=== PATIENT | male | born 1980 | race Caucasian/White ===

== ENCOUNTER 2017-09-11 21:48 | Emergency (ER) | payer OTHER ==
[~2017-09-11] VITALS: Ht 177.8 cm; Wt 159.5 kg
[~2017-09-11 21:48] MED LIST: IBUP-1050 PO
[2017-09-11 21:53] VITALS: TEMP 36.6; Ht 177.8 cm; Wt 159.5 kg
[2017-09-11] MEDS ORDERED: KETOROLAC TROMETHAMINE 30 MG/ML VIAL IV STA (22:06)
[2017-09-11] MEDS ORDERED: DiphenhydrAMINE HCL 50 MG/ML VIAL IV STA (22:06)
[2017-09-11] MEDS ORDERED: METOCLOPRAMIDE HCL INJ 5 MG/ML 2 ML VIAL IV STA (22:06)
[2017-09-11] MEDS ORDERED: NAPR1TAB9 PO (22:20)
[2017-09-11 22:40] LABS: BASO % 0.4 %; BASO ABS # 0.04 K/uL (0-0.2); EOS % 5.2 %; EOS ABS # 0.55 K/uL (0-0.5); HEMATOCRIT 46.6 % (42-52); IG# 0.06 K/uL (0.00-0.02); LYMPH % 29.2 %; LYMPH ABS # 3.07 K/uL (1.2-3.4); MEAN CELL VOLUME 84.7 fL (80-100); MEAN CORPUSCULAR HEMOGLOBIN 29.1 pg (25-34); MEAN CORPUSCULAR HGB CONC 34.3 g/dl (32-36); MEAN PLATELET VOLUME 9.7 fL (7.4-10.4); MONO % 7.6 %; PLATELET COUNT 269 K/uL (130-400); RED CELL DISTRIBUTION WIDTH CV 13.7 % (11.5-14.5); RED CELL DISTRIBUTION WIDTH SD 42.8 fL (36.4-46.3); WHITE BLOOD COUNT 10.52 K/uL (4.8-10.8)
--- NOTE | 2017-09-11 22:50 | DIAGNOSTIC IMAGING REPORT ---
LUMBAR SPINE WITHOUT CLINICAL HISTORY: 37 years-old Male presenting with severe LBP down right leg. TECHNIQUE: Multidetector CT of the lumbar spine was performed without the use of intravenous contrast. IV contrast: None. A dose lowering technique was used consistent with the principles of ALARA (as low as reasonably achievable). COMPARISON: Plain radiographs from 10/10/2013. CT DOSE (mGy.cm): The estimated cumulative dose is 1019.33 mGy.cm. FINDINGS: Wire Insulator topogram: Unremarkable. Normal lumbar lordosis. Vertebral bodies maintain normal height and alignment. No significant scoliosis. Intervertebral disc heights preserved with the exception of L5-S1, which demonstrates mild intervertebral disc height loss. Anterior osteophytosis noted from L2-3 through L5-S1. Disc bulges noted at L3-4 and L4-5. Osseous neural foraminal narrowing noted at L4-5 and L5-S1 greater on the left. No acute fracture or subluxation. Visualized portion of the sacrum intact. Paraspinal soft tissues within normal limits allowing for noncontrast. IMPRESSION: 1. No acute osseous injury of the lumbar spine. 2. Multilevel degenerative changes with neural foraminal narrowing at L4-5 and L5-S1 greater on the left. Electronically signed by: Abelardo Carey M.D. 09/11/2017 10:48 PM Dictated Date/Time: 09/11/2017 10:46 PM
[2017-09-11 22:57] LABS: CALCIUM 8.8 mg/dl (8.5-10.1); CREATININE 0.9 mg/dl (0.60-1.40); POTASSIUM 4.1 mmol/L (3.5-5.1)
--- NOTE | 2017-09-11 22:58 | DIAGNOSTIC IMAGING REPORT ---
THORACIC SPINE WITHOUT CLINICAL HISTORY: 37 years-old Male presenting with severe back pain. TECHNIQUE: Multidetector CT of the thoracic spine was performed without the use of intravenous contrast. IV contrast: None. A dose lowering technique was used consistent with the principles of ALARA (as low as reasonably achievable). COMPARISON: None. CT DOSE (mGy.cm): The estimated cumulative dose is 1768.33 mGy.cm. FINDINGS: Tower Dragline Operator topogram: Unremarkable. Slight dextrocurvature of the thoracic spine. Otherwise normal thoracic kyphosis. Vertebral bodies maintain normal height and alignment. Intervertebral disc heights preserved. Multilevel degenerative changes evidenced by anterior osteophytosis. Disc osteophyte complex noted at T6-7 with mild effacement of the ventral thecal sac greater on the right. Osseous neural foraminal narrowing evident at several levels most prominently on the right from T4-5 through T6-7. No acute fracture or subluxation. Paraspinal soft tissues within normal limits. Visualized portion of the lung parenchyma within normal limits. IMPRESSION: 1. No acute osseous injury of the thoracic spine. 2. Multilevel degenerative changes with osseous neural foraminal narrowing evident from T4-5 through T6-7, greater on the right. Electronically signed by: Abelardo Carey M.D. 09/11/2017 10:56 PM Dictated Date/Time: 09/11/2017 10:53 PM
[2017-09-11 23:50] VITALS: BP 154/96; PULSE 76; O2SAT 95
--- NOTE | 2017-09-12 05:10 | EMERGENCY ROOM VISIT NOTE ---
History First contact with patient: 21:58 Chief Complaint: BACK PAIN Stated Complaint: BACK GARCIA AND PAIN IN RIGHT LEG History of Present Illness The patient is a 37 year old male who presents to the Emergency Room with complaints of low back pain that radiates down his right leg for the past several months that is steadily getting worse. Patient's been to the chiropractor with no real improvement of symptoms. He describes pain as aching , ranging in severity 7 out of 10 worse with movement and better with rest. Patient denies chest pain, dyspnea, abdominal pain, fever, chills, IV drug abuse , leg weakness, loss of bowel or bladder control, saddle anesthesia. No direct trauma to the back. Patient has not seen his family doctor in over a year. Review of Systems An 10 system review of systems was completed with positives and pertinent negatives listed in the HPI. Past Medical/Surgical History Back pain Family History Diabetes mellitus Social History Smoking Status: Never Smoker Alcohol Use: occasionally Drug Use: none Marital Status: Housing Status: lives with family Occupation Status: employed Current/Historical Medications Scheduled PRN Naproxen (Aleve), 440 MG PO Q4-6HRS PRN for Pain Physical Exam Vital Signs Date Time Temp Pulse Resp B/P (MAP) Pulse Ox O2 Delivery O2 Flow Rate FiO2 09/11/17 23:50 76 18 154/96 95 09/11/17 22:15 97 20 173/116 97 Room Air 09/11/17 21:53 36.6 110 18 199/112 96 Room Air Physical Exam VITALS: Vitals are noted on the nurse's note and reviewed by myself. Vital signs hypertensive. GENERAL: Pleasant male morbidly obese, in no acute distress, nondiaphoretic, well-developed well-nourished. SKIN: Capillary reflex less than 2 seconds. HEENT: Normocephalic. PERRLA. EOMI. Nares patent. Mucous membranes moist. Neck is supple without nuchal rigidity. HEART: Regular rate and rhythm without murmurs gallops or rubs. LUNGS: Clear to auscultation bilaterally without wheezes, rales or rhonchi. No retractions or accessory muscle use. ABDOMEN: Positive bowel sounds x 4. Normal tympanic percussion. Soft, protuberant, obese, nontender, without masses or organomegaly. Ariza sign negative. No guarding or rebound tenderness. MUSCULOSKELETAL: No gross musculoskeletal defects. Minimal tenderness over the lower thoracic spine and lumbar spine without step-offs. Negative straight leg raise on the left and positive on the right. Patient can walk on toes and heels. NEURO: Patient was alert and oriented to person place and time. Normal sensation to light and sharp touch. Deep tendon reflexes 2+ patella bilaterally . No focal neurological deficits. Medical Decision & Procedures Laboratory Results 09/11/17 22:20 Red Blood Count 5.50, Mean Corpuscular Volume 84.7, Mean Corpuscular Hemoglobin 29.1, Mean Corpuscular Hemoglobin Concent 34.3, Mean Platelet Volume 9.7, Neutrophils (%) (Auto) 57.0, Lymphocytes (%) (Auto) 29.2, Monocytes (%) (Auto) 7.6, Eosinophils (%) (Auto) 5.2, Basophils (%) (Auto) 0.4, Neutrophils # (Auto) 6.00, Lymphocytes # (Auto) 3.07, Monocytes # (Auto) 0.80, Eosinophils # (Auto) 0.55, Basophils # (Auto) 0.04 09/11/17 22:20 Test 09/11/17 22:20 White Blood Count 10.52 K/uL (4.8-10.8) Red Blood Count 5.50 M/uL (4.7-6.1) Hemoglobin 16.0 g/dL (14.0-18.0) Hematocrit 46.6 % (42-52) Mean Corpuscular Volume 84.7 fL (80-100) Mean Corpuscular Hemoglobin 29.1 pg (25-34) Mean Corpuscular Hemoglobin Concent 34.3 g/dl (32-36) Platelet Count 269 K/uL (130-400) Mean Platelet Volume 9.7 fL (7.4-10.4) Neutrophils (%) (Auto) 57.0 % Lymphocytes (%) (Auto) 29.2 % Monocytes (%) (Auto) 7.6 % Eosinophils (%) (Auto) 5.2 % Basophils (%) (Auto) 0.4 % Neutrophils # (Auto) 6.00 K/uL (1.4-6.5) Lymphocytes # (Auto) 3.07 K/uL (1.2-3.4) Monocytes # (Auto) 0.80 K/uL (0.11-0.59) Eosinophils # (Auto) 0.55 K/uL (0-0.5) Basophils # (Auto) 0.04 K/uL (0-0.2) RDW Standard Deviation 42.8 fL (36.4-46.3) RDW Coefficient of Variation 13.7 % (11.5-14.5) Immature Granulocyte % (Auto) 0.6 % Immature Granulocyte # (Auto) 0.06 K/uL (0.00-0.02) Anion Gap 4.0 mmol/L (3-11) Est Creatinine Clear Calc Drug Dose 171.0 ml/min Estimated GFR () 126.0 Estimated GFR (Non- 108.7 BUN/Creatinine Ratio 9.7 (10-20) Calcium Level 8.8 mg/dl (8.5-10.1) Medications Administered Medications (Trade) Dose Ordered Sig/Faraz Route Start Time Stop Time Status Last Admin Dose Admin Ketorolac Tromethamine (Toradol Inj) 15 mg NOW STAT IV 09/11/17 22:06 09/11/17 22:11 DC 09/11/17 22:27 15 MG Metoclopramide HCl (Reglan Inj) 10 mg NOW STAT IV 09/11/17 22:06 09/11/17 22:11 DC 09/11/17 22:22 10 MG Diphenhydramine HCl (Benadryl Inj) 12.5 mg NOW STAT IV 09/11/17 22:06 09/11/17 22:11 DC 09/11/17 22:23 12.5 MG ED Course Prior records/ancillary studies reviewed. Triage Nursing notes reviewed. Additional history obtained from family. The patient's history was concerning for back pain. Differential diagnosis: Etiologies such as musculoskeletal, disc herniation, fracture, aortic disease, metastatic disease, cord compression, discitis, infection, renal colic, gastrointestinal, acute exacerbation of chronic back pain, sciatica, cauda equina, as well as others were entertained. Physical findings: As above. No focal neurologic findings noted. ER treatment provided: Toradol, Benadryl, Reglan On reassessment the patient felt better. Diagnostics interpreted by me: The labs revealed hyperglycemia without DKA Imaging studies: [~ rep ct add3]] THORACIC SPINE WITHOUT CLINICAL HISTORY: 37 years-old Male presenting with severe back pain. TECHNIQUE: Multidetector CT of the thoracic spine was performed without the use of intravenous contrast. IV contrast: None. A dose lowering technique was used consistent with the principles of ALARA (as low as reasonably achievable). COMPARISON: None. CT DOSE (mGy.cm): The estimated cumulative dose is 1768.33 mGy.cm. FINDINGS: Research Physician topogram: Unremarkable. Slight dextrocurvature of the thoracic spine. Otherwise normal thoracic kyphosis. Vertebral bodies maintain normal height and alignment. Intervertebral disc heights preserved. Multilevel degenerative changes evidenced by anterior osteophytosis. Disc osteophyte complex noted at T6-7 with mild effacement of the ventral thecal sac greater on the right. Osseous neural foraminal narrowing evident at several levels most prominently on the right from T4-5 through T6-7. No acute fracture or subluxation. Paraspinal soft tissues within normal limits. Visualized portion of the lung parenchyma within normal limits. IMPRESSION: 1. No acute osseous injury of the thoracic spine. 2. Multilevel degenerative changes with osseous neural foraminal narrowing evident from T4-5 through T6-7, greater on the right. LUMBAR SPINE WITHOUT CLINICAL HISTORY: 37 years-old Male presenting with severe LBP down right leg. TECHNIQUE: Multidetector CT of the lumbar spine was performed without the use of intravenous contrast. IV contrast: None. A dose lowering technique was used consistent with the principles of ALARA (as low as reasonably achievable). COMPARISON: Plain radiographs from 10/10/2013. CT DOSE (mGy.cm): The estimated cumulative dose is 1019.33 mGy.cm. FINDINGS: Research Physician topogram: Unremarkable. Normal lumbar lordosis. Vertebral bodies maintain normal height and alignment. No significant scoliosis. Intervertebral disc heights preserved with the exception of L5-S1, which demonstrates mild intervertebral disc height loss. Anterior osteophytosis noted from L2-3 through L5-S1. Disc bulges noted at L3-4 and L4-5. Osseous neural foraminal narrowing noted at L4-5 and L5-S1 greater on the left. No acute fracture or subluxation. Visualized portion of the sacrum intact. Paraspinal soft tissues within normal limits allowing for noncontrast. IMPRESSION: 1. No acute osseous injury of the lumbar spine. 2. Multilevel degenerative changes with neural foraminal narrowing at L4-5 and L5-S1 greater on the left. Electronically signed by: Abelardo Carey M.D. This appears to be consistent with lumbar radiculopathy. Patient was neurovascularly neurologically intact. He was counseled on back pain and on blood pressure and blood sugar with follow-up with family care for further evaluation for possible evaluation for diabetes untreated blood pressure. Patient was advised to take medications as directed and to stretch the area out and to maintain a healthy weight. He was advised to follow-up family care in a few days here in the ER sooner for severe pain, weakness, numbness, tingling, worsening signs or symptoms or as needed. Patient ambulated out of the ER with his family without difficulties.. The patient's physical examination and detailed history did not reveal any red flags for back pain such as those listed in the differential diagnosis. Therefore advanced diagnostics and consultations were felt to be unwarranted. By the evaluation outlined above emergent etiologies such as fracture, aortic disease, metastatic disease, infection, renal colic, gastrointestinal, cord compression, cauda equina, as well as others were deemed relatively unlikely. The pt informed about the findings as listed above. All questions were answered and pleased with the treatment. Return instructions were outlined and the patient was discharged in stable condition. Referral: The patient was referred back to primary care physician for follow-up in 2 to 3 days for a recheck of the current condition. Case reviewed with my attending The chart was completed utilizing EPS Speech voice recognition software. Grammatical errors, random word insertions, pronoun errors, and incomplete sentences are an occassional consequence of this system due to software limitations, ambient noise, and hardware issues. Any formal questions or concerns about the content, text, or information contained within the body of this dictation should be directly addressed to the physician assistant office manager for clarification. Medical Decision As above Medication Reconcilliation Current Medication List: was personally reviewed by me Blood Pressure Screening Patient's blood pressure: Elevated blood pressure Blood pressure disposition: Referred to PCP Impression Primary Impression: Hyperglycemia Additional Impressions: Lumbar radiculopathy High blood pressure Departure Information Dispostion Home / Self-Care Condition GOOD Referrals Amadeo Jose, DO Forms HOME CARE DOCUMENTATION FORM, Work Instructions, Return To Work: 2 days IMPORTANT VISIT INFORMATION Patient Instructions Hyperglycemia, High Blood Pressure, Lumbar Radiculopathy, [facility] Additional Instructions DO NOT drive, drink alcohol, operate machinery, or perform dangerous activities today. You were given medications in the ER that can affect your ability to safely function or operate a vehicle. Your blood pressure and blood sugar were high today. You need to follow-up with family care doctor for further evaluation for possible untreated blood pressure and diabetes. Recommend yoga and/or Pilates for back pain to help strengthen uo your core. Recommend physical therapy to help strengthen up your core. Recommend a healthy weight. Ibuprofen(Motrin, Advil) may be used for fever or pain. Use 600mg every six hours as needed. Take with food. Avoid using more than 2400mg in a 24 hour period. Do not use 2400mg per day for more than three consecutive days without physician direction. Prolonged inappropriate use can lead to stomach upset or ulcers. This medication can be taken if you need to drive, work, or perform activities which may be dangerous when taking narcotic pain medication. (AND/OR) Acetaminophen(Tylenol) may be used for fever or pain. Use 1000mg every six hours as needed. Avoid using more than 3000mg in a 24 hour period. This medication can be taken if you need to drive, work, or perform activities which may be dangerous when taking narcotic pain medication. Rest and avoid heavy lifting until your symptoms resolve and then gradually return to full activity. A good rule of thumb is if it hurts your back to perform a certain activity, then it should be avoided until you are healthy again. A heating pad, warm compresses, or a hot shower may help with tight muscles and can be done several times a day as needed. Continue current medications. Return to the ER immediately for any numbness, tingling, severe pain, loss of control of your bowels or bladder, inability to walk, or as needed. Follow up with your primary care physician/orthopedics spine within 3-5 days for a recheck of your current condition. Work Instructions Return To Work: 2 days Problem Qualifiers
== END 2017-09-11 23:51 | disposition home or self-care (01) ==
LOC: C.EDB 21:49
DX: R73.9 Hyperglycemia, unspecified (principal); M54.16 Radiculopathy, lumbar region; I10 Essential (primary) hypertension

== ENCOUNTER 2023-07-13 18:46 | Inpatient (IN) ==
[2023-07-13 19:48] LABS: Basophils # (auto) 0.06 K/uL (0.00-0.20); Basophils % (auto) 0.4 %; Eosinophils # (auto) 0.15 K/uL (0.00-0.50); Hematocrit (blood only) 46.8 % (42.0-52.0); Hemoglobin 15.6 g/dl (14.0-18.0); Immature Granulocytes # (auto) 0.08 K/uL (0.01-0.20); Immature Granulocytes % (auto) 0.5 %; Lymphocytes # (auto) 2.33 K/uL (1.20-3.40); Lymphocytes % (auto) 15.6 %; Mean Corpuscular Hgb Conc 33.3 g/dL (32.0-36.0); Mean Platelet Volume 9.8 fL (9.4-12.4); Monocytes # (auto) 1.02 K/uL (0.11-0.59); Monocytes % (auto) 6.8 %; Neutrophils # (auto) 11.31 K/uL (1.40-6.50); Neutrophils % (auto) 75.7 %; Platelet Count 262 K/uL (130-400); RDW Coefficient of Variation 14.1 % (11.5-14.5); RDW Standard Deviation 43.3 fL (36.4-46.3); Red Blood Count 5.57 M/uL (4.70-6.10); White Blood Count 14.95 K/ul (4.8-10.8)
[2023-07-13 20:03] LABS: Albumin Globulin Ratio 0.9 (0.9-2); Albumin Level 3.8 gm/dl (3.4-5.0); Bilirubin,Total 0.8 mg/dl (0.2-1.0); Creatinine Clr Calc Pharmacy 192.5 ml/min; Est GFR (African American) 130.2 ml/min; Est GFR (Non-African American) 112.4 ml/min; Globulin 4.2 gm/dl (2.5-4.0); Potassium 4.1 mmol/L (3.5-5.1)
[2023-07-13 20:17] LABS: Appearance Urine Cloudy (Clear); Bacteria Urine Automated 4+ (Negative); Bilirubin Urine Negative (Negative); Blood Urine Trace (Negative); Color Urine Dark Yellow; Epithelial Cell Urine Auto >30 /lpf (0-5); Glucose Urine UA 3+ (Negative); Ketones Urine Trace (Negative); Leukocyte Esterase Urine Negative (Negative); Nitrite Urine Negative (Negative); Protein Urine 2+ (Negative); RBC Urine Automated 0-4 /hpf (0-4); Specific Gravity Urine > 1.045 (1.000-1.030); Urobilinogen Urine Negative (Negative); WBC Urine Automated >30 /hpf (0-5)
[2023-07-13] MEDS: diphenhydrAMINE 50 MG/ML VIAL IV ONE (20:31)
[2023-07-13] MEDS: OPTIRAY 320 125ml IV ONE (20:51)
--- NOTE | 2023-07-13 21:19 | Emergency Department Note ---
Impression & Plan Abdominal pain, Acute cholecystitis, Hematuria ED Provider Note ED Provider Note NAME: NOA FONSECA AGE:43 SEX: Male : 1980 ARRIVES VIA: Private vehicle INFORMANT: Patient ED PROVIDER(s): Haley Velez DO CHIEF COMPLAINT: Abdominal pain HPI: This is a 43-year-old male presents emergency department due to concern for abdominal pain. Patient states 4 days ago he had pain in the right upper quadrant that seemed to come into his chest however he took some antacids at home and symptoms seem to resolve. He states he felt well over the next 2 days. He states this morning at around 4 AM he awoke with right lower abdominal pain. He states pain has been constant throughout the day. He did have 1 episode of nausea and vomiting. He did have subjective fevers and chills, but did not take his temperature. Patient is a diabetic but family bedside states he does not routinely check his blood sugar. He denies any recent change in medications or known sick contact. No recent change in activity or trauma. He states he drinks a lot of water, and his urine is usually microsoft architect however today it looked darker. He denies any dysuria, frequency or urgency. He denies any change in stools. PAST MEDICAL HISTORY:See Below PAST SURGICAL HISTORY:See Below FAMILY HISTORY:See Below SOCIAL HISTORY:See Below HOME MEDICATIONS:See Below ALLERGIES:See Below VITALS:See Below PHYSICAL EXAMINATION: GENERAL: alert, well appearing, well nourished, no distress, non-toxic, BMI 47 EYE EXAM: normal conjunctiva, PERRL and EOM's grossly intact OROPHARYNX: no exudate, no erythema, lips, buccal mucosa, and tongue normal and mucous membranes are moist NECK: supple, no nuchal rigidity, no adenopathy, non-tender LUNGS: Clear to auscultation. Normal chest wall mechanics, no w/r/r HEART: no murmurs, S1 normal and S2 normal ABDOMEN: abdomen soft, right lower quadrant tenderness with palpation normo- active bowel sounds, no masses, no rebound or guarding. BACK: Back is symmetrical on inspection and there is no deformity, no midline tenderness, no CVA tenderness. SKIN: no rashes, petechiae, orbruising UPPER EXTREMITIES: upper extremities are grossly normal. FROM, nml pulses b/l. LOWER EXTREMITIES: No pitting edema. FROM, nml pulses b/l. NEURO EXAM: Normal sensorium, cranial nerves II-XII grossly intact, normal speech, no facial droop,nogross weakness of arms, no gross weakness of legs. Gross sensation intact. No ataxia. Vital Signs: reviewed and remarkable Differential Diagnosis: Colitis, bowel obstruction, appendicitis, perforation, cholecystitis, DKA, UTI, pyelonephritis, ureterolithiasis, IBD, as well as others were considered MEDICAL DECISION MAKING: This is a 43-year-old male presents emerged part due to right-sided abdominal pain. He was afebrile vital signs stable on presentation. Labs drawn and sent, IV established, EKG performed at bedside interpreted by me and patient monitored on telemetry. Patient given IV fluids, IV Tylenol, and was sent for CT of the abdomen and pelvis. CT revealed acute cholecystitis. Patient was noted to have leukocytosis although no abnormal LFTs or elevated lipase. Patient given additional IV morphine for pain and case discussed with general surgery Daniel MARTINEZ who came and evaluated the patient at bedside. Patient admitted to Dr. Echols [facility] for management of his other medical conditions with general surgery on consult. Additional orders placed by them. Patient had no urinary complaints and urine specimen was suboptimal with greater than 30 epi use although he was noted to have glucose, protein, as well as hematuria and 4+ bacteria. Culture pending at this time. Patient did receive IV antibiotics after surgical evaluation additionally. Consultation(s): 2220: Discussed with Daniel Amor PA-C, with general surgery. They would like medicine to admit given patient's history of diabetes and hypertension. 2228: Discussed with Dr. Echols, [facility], for additional evaluation and mgmt. ER Treatment Provided: See below Diagnostics Interpreted By Me: -ECG: Sinus tachycardia at 107, normal axis, normal intervals, no acute ST/T wave changes -Cardiac Monitoring: An order was placed for continuous cardiac monitoring. The monitor shows a rate of 92 with normal sinus rhythm. -Laboratory studies: As stated above and show below. -Imaging studies: X-ray Chest: A single view study of the chest was reviewed and was negative for cardiomegaly, focal infiltrate, effusion, pulmonary edema, or wide mediastinum. Triage Nursing Note Reviewed Prior/Outside Records Reviewed Past Med/Surg History Medical History Lumbar radiculopathy Hyperglycemia High blood pressure Social History Smoking Status: Never smoker Preferred Language: Greek Feels Safe at Home: Yes Allergies Allergies Allergy/AdvReac Type Severity Reaction Status Date / Time Penicillins Allergy Severe THROAT/FACE Verified 07/13/23 21:46 SWELLS iodine Allergy Unknown CAN'T Unverified 07/13/23 21:46 REMEMBER Home Meds Home Medications Medication Instructions Recorded Confirmed feouuzpb-bgvccime-pgene acid 400 1 tab PO DAILY 07/22/21 07/13/23 mcg-vit K 20 mcg-lycop 300 mcg tablet (Men's One Daily) dulaglutide 0.75 mg/0.5 mL 0.75 mg subcut WK 07/13/23 07/13/23 subcutaneous pen injector (Trulicity) empagliflozin 25 mg tablet 25 mg PO QAM 07/13/23 07/13/23 (Jardiance) fenofibrate nanocrystallized 145 145 mg PO QAM 07/13/23 07/13/23 mg tablet losartan 100 1 tab PO DAILY 07/13/23 07/13/23 mg-hydrochlorothiazide 25 mg tablet Results & Data (ED) Vital Signs Vital Signs - 24 hr 07/13/23 18:47 07/13/23 19:52 07/13/23 19:52 Temperature 36.6 C Temperature Source Temporal Artery Scan Pulse Rate 113 H 104 H Pulse Rate [Finger] 104 H Pulse Rate from SpO2 Sensor Pulse Rhythm Regular Pulse Rhythm [Finger] Regular Pulse Strength [Finger] Normal Respiratory Rate 18 16 20 Respiratory Effort / Characteristics Non-Labored Spontaneous Non-Labored Respiratory Depth Normal Normal Respiratory Pattern Regular Blood Pressure 168/109 H Blood Pressure [Right Arm] 165/96 H Blood Pressure Mean 128 Blood Pressure Mean [Right Arm] 119 Blood Pressure Position Sitting Pulse Oximetry 97 95 94 Oxygen Delivery Method Room Air Room Air Room Air Sepsis Recent Fever Within 48 Hours No Sepsis New/Unexplained Change in Mental Status N/A Sepsis Action Taken by Nursing No Action Required 07/13/23 19:55 07/13/23 20:00 07/13/23 21:00 Temperature Temperature Source Pulse Rate 101 H 102 H 105 H Pulse Rate [Finger] Pulse Rate from SpO2 Sensor 103 H 105 H Pulse Rhythm Pulse Rhythm [Finger] Pulse Strength [Finger] Respiratory Rate 27 H 23 Respiratory Effort / Characteristics Respiratory Depth Respiratory Pattern Blood Pressure 150/94 H 186/114 H Blood Pressure [Right Arm] Blood Pressure Mean 112 138 Blood Pressure Mean [Right Arm] Blood Pressure Position Pulse Oximetry 96 97 Oxygen Delivery Method Sepsis Recent Fever Within 48 Hours Sepsis New/Unexplained Change in Mental Status Sepsis Action Taken by Nursing 07/13/23 22:00 07/13/23 23:13 07/13/23 23:22 Temperature Temperature Source Pulse Rate 98 H Pulse Rate [Finger] Pulse Rate from SpO2 Sensor 99 H 97 H Pulse Rhythm Pulse Rhythm [Finger] Pulse Strength [Finger] Respiratory Rate 42 H 20 31 H Respiratory Effort / Characteristics Respiratory Depth Respiratory Pattern Blood Pressure 163/86 H 165/94 H Blood Pressure [Right Arm] Blood Pressure Mean 111 117 Blood Pressure Mean [Right Arm] Blood Pressure Position Pulse Oximetry 95 92 Oxygen Delivery Method Sepsis Recent Fever Within 48 Hours Sepsis New/Unexplained Change in Mental Status Sepsis Action Taken by Nursing 07/13/23 23:54 07/13/23 23:54 Temperature Temperature Source Pulse Rate 97 H 97 H Pulse Rate [Finger] Pulse Rate from SpO2 Sensor Pulse Rhythm Pulse Rhythm [Finger] Pulse Strength [Finger] Respiratory Rate Respiratory Effort / Characteristics Respiratory Depth Respiratory Pattern Blood Pressure 165/94 H Blood Pressure [Right Arm] Blood Pressure Mean Blood Pressure Mean [Right Arm] Blood Pressure Position Pulse Oximetry Oxygen Delivery Method Sepsis Recent Fever Within 48 Hours Sepsis New/Unexplained Change in Mental Status Sepsis Action Taken by Nursing Laboratory Data 07/13/23 19:15 07/13/23 19:15 Lab Results 07/13/23 07/13/23 Range/Units 19:15 19:58 WBC 14.95 H (4.8-10.8) K/ul RBC 5.57 (4.70-6.10) M/uL Hgb 15.6 (14.0-18.0) g/dl Hct 46.8 (42.0-52.0) % MCV 84.0 (80.0-100.0) fL MCH 28.0 (25.0-34.0) pg MCHC 33.3 (32.0-36.0) g/dL RDW Std Deviation 43.3 (36.4-46.3) fL RDW Coeff of [place] 14.1 (11.5-14.5) % Plt Count 262 (130-400) K/uL MPV 9.8 (9.4-12.4) fL Immature Gran % (Auto) 0.5 % Neut % (Auto) 75.7 % Lymph % (Auto) 15.6 % [place] % (Auto) 6.8 % Eos % (Auto) 1.0 % Baso % (Auto) 0.4 % Neut # (Auto) 11.31 H (1.40-6.50) K/uL Lymph # (Auto) 2.33 (1.20-3.40) K/uL [place] # (Auto) 1.02 H (0.11-0.59) K/uL Eos # (Auto) 0.15 (0.00-0.50) K/uL Baso # (Auto) 0.06 (0.00-0.20) K/uL Immature Gran # (Auto) 0.08 (0.01-0.20) K/uL Sodium 134 L (136-145) mmol/L Potassium 4.1 (3.5-5.1) mmol/L Chloride 104 (98-107) mmol/L Carbon Dioxide 22 (21-32) mmol/L Anion Gap 8 (3-11) BUN 9 (6-23) mg/dl Creatinine 0.75 (0.6-1.4) mg/dl Est Cr Clr Drug Dosing 192.5 ml/min Est GFR ( Amer) 130.2 ml/min Est GFR (Non-Af Amer) 112.4 ml/min BUN/Creatinine Ratio 12.0 (10-20) Glucose 188 H (70-99(Fasting)) mg/dl Calcium 9.0 (8.6-10.3) mg/dl Total Bilirubin 0.8 (0.2-1.0) mg/dl AST 13 (13-39) U/L ALT 18 (7-52) U/L Alkaline Phosphatase 61 (34-104) U/L Total Protein 8.0 (6.0-8.3) gm/dl Albumin 3.8 (3.4-5.0) gm/dl Globulin 4.2 H (2.5-4.0) gm/dl Albumin/Globulin Ratio 0.9 (0.9-2) Lipase 34 (11-82) U/L Urine Color Dark Yellow Urine Appearance Cloudy A (Clear) Urine pH 6.0 (4.5-7.5) Ur Specific [place] > 1.045 H (1.000-1.030) Urine Protein 2+ H (Negative) Urine Glucose (UA) 3+ H (Negative) Urine Ketones Trace H (Negative) Urine Blood Trace H (Negative) Urine Nitrite Negative (Negative) Urine Bilirubin Negative (Negative) Urine Urobilinogen Negative (Negative) Ur Leukocyte Esterase Negative (Negative) Urine WBC (Auto) >30 H (0-5) /hpf Urine RBC (Auto) 0-4 (0-4) /hpf U Hyaline Cast (Auto) 1-5 (0-5) /lpf U Epithel Cells (Auto) >30 H (0-5) /lpf Urine Bacteria (Auto) 4+ H (Negative) Administered Medications Sodium Chloride (Nss) 1,000 mls @ 100 mls/hr IV .Q10H LOIS Stop: 08/12/23 22:29 Last Admin: 07/13/23 23:54 Dose: 100 mls/hr Documented By: HB Ciprofloxacin (Cipro / D5w) 400 mg in 200 mls @ 100 mls/hr IV NOW STA; Protocol Stop: 07/14/23 00:49 Last Admin: 07/13/23 23:16 Dose: 100 mls/hr Documented By: HB Discontinued Medications Diphenhydramine HCl (Diphenhydramine 50 Mg/Ml Vial) 50 mg IV ONE ONE Stop: 07/13/23 20:21 Last Admin: 07/13/23 20:31 Dose: 50 mg Documented By: HB Sodium Chloride (Nss) 1,000 mls @ 250 mls/hr IV .Q4H LOIS Stop: 08/12/23 21:14 Last Infusion: 07/13/23 23:49 Dose: Infused Documented By: Admin: 07/13/23 21:34 Dose: 250 mls/hr Documented By: HB Acetaminophen (Ofirmev) 1,000 mg in 100 mls @ 400 mls/hr IV NOW STA Stop: 07/13/23 21:28 Last Infusion: 07/13/23 21:50 Dose: Infused Documented By: Admin: 07/13/23 21:35 Dose: 400 mls/hr Documented By: HB Ioversol (Optiray 320 125ml) 116 ml IV ONCE ONE Stop: 07/13/23 20:51 Last Admin: 07/13/23 20:51 Dose: 116 ml Documented By: DIDI Labetalol HCl (Labetalol Hcl Iv 5 Mg/Ml 20ml) 5 mg IV NOW STA Stop: 07/13/23 23:44 Last Admin: 07/13/23 23:54 Dose: 5 mg Documented By: GERRY Co-signed By: Methylprednisolone (Methylprednisolone 40 Mg/Ml Vial) 40 mg IV NOW ONE Stop: 07/13/23 20:21 Last Admin: 07/13/23 20:32 Dose: 40 mg Documented By: HB Morphine Sulfate (Morphine Sulfate 4 Mg/Ml 1 Ml Carp\Vial) 4 mg IV NOW STA Stop: 07/13/23 22:24 Last Admin: 07/13/23 22:38 Dose: 4 mg Documented By: AMOL Imaging Data Radiologist's Impression: Abdomen/Pelvis CT 07/13/23 20:20 Exam(s): CT ABDOMEN + PELVIS With Contrast IV Amt: 116 cc opti 320 EXAM: CT Abdomen and Pelvis With Intravenous Contrast CLINICAL HISTORY: Reason for exam: RLQ abd pain. TECHNIQUE: Axial computed tomography images of the abdomen and pelvis with intravenous contrast. CTDI is 28.14 mGy and DLP is 1608.16 mGy-cm. Automated exposure control was utilized for the study. A dose lowering technique was utilized adhering to the principles of ALARA. CONTRAST: Patient received 116 cc opti 320 of IV contrast COMPARISON: No relevant prior studies available. FINDINGS: Lung bases: Unremarkable. No mass. No consolidation. ABDOMEN: Liver: Hepatic steatosis. Gallbladder and bile ducts: Moderate pericholecystic edema, concerning for acute cholecystitis. Surgical evaluation recommended. No radiopaque gallstones. No ductal dilation. Pancreas: Unremarkable. No mass. No ductal dilation. Spleen: Unremarkable. No splenomegaly. Adrenals: Unremarkable. No mass. Kidneys and ureters: Unremarkable. No solid mass. No hydronephrosis. Stomach and bowel: Unremarkable. No obstruction. No mucosal thickening. PELVIS: Appendix: No findings to suggest acute appendicitis. Bladder: Unremarkable. No mass. Reproductive: Unremarkable as visualized. ABDOMEN and PELVIS: Intraperitoneal space: Unremarkable. No free air. No significant fluid collection. Bones/joints: No acute fracture. No dislocation. Soft tissues: Unremarkable. Vasculature: Unremarkable. No abdominal aortic aneurysm. Lymph nodes: Unremarkable. No enlarged lymph nodes. IMPRESSION: Moderate pericholecystic edema, concerning for acute cholecystitis. Surgical evaluation recommended. No radiopaque gallstones. Electronically signed by: Alphonse Telles MD 07/13/23 21:57 PM Gallbladder Ultrasound 07/13/23 22:27 Exam(s): US GALLBLADDER EXAM: US Abdomen Limited, Gallbladder CLINICAL HISTORY: Reason for exam: cholecystitis. TECHNIQUE: Real-time ultrasound of the right upper quadrant with image documentation. COMPARISON: No relevant prior studies available. FINDINGS: Liver: Hepatic steatosis. Gallbladder: Cholelithiasis. Mild relative wall thickening measuring 4 mm. Findings are consistent with acute cholecystitis. Common bile duct: Common bile duct measures 6 mm, within normal limits. No stones. No dilation. Pancreas: Unremarkable as visualized. IMPRESSION: Cholelithiasis. Mild relative wall thickening measuring 4 mm. Findings are consistent with acute cholecystitis. Electronically signed by: Alphonse Telles MD 07/14/23 00:35 AM Discharge Plan Visit Data Chief Complaint: Abdominal Pain Stated Complaint: RT FLANK PAIN ED Provider: Haley Velez Discharge Problem: Abdominal pain, Acute cholecystitis, Hematuria Forms Stand Alone Forms: [facility] Prescriptions Prescriptions: No Action Men's One Daily 400-20-300 mcg Tablet 1 tab PO DAILY losartan-hydrochlorothiazide 100-25 mg tablet 1 tab PO DAILY fenofibrate nanocrystallized 145 mg tablet 145 mg PO QAM Jardiance 25 mg tablet 25 mg PO QAM Trulicity 0.75 mg/0.5 mL pen injector 0.75 mg SUBCUT WK Referrals Referrals: Michi Moreno MD [Primary Care Provider] -
[2023-07-13] MEDS: SODIUM CHLORIDE 0.9% 1,000 ML IV SCH ×2 (21:34→23:54)
[2023-07-13] MEDS: ACETAMINOPHEN 1,000 MG/100 ML VIAL IV STA (21:35)
--- NOTE | 2023-07-13 21:58 | CT Scan Report ---
Exam(s): CT ABDOMEN + PELVIS With Contrast IV Amt: 116 cc opti 320 EXAM: CT Abdomen and Pelvis With Intravenous Contrast CLINICAL HISTORY: Reason for exam: RLQ abd pain. TECHNIQUE: Axial computed tomography images of the abdomen and pelvis with intravenous contrast. CTDI is 28.14 mGy and DLP is 1608.16 mGy-cm. Automated exposure control was utilized for the study. A dose lowering technique was utilized adhering to the principles of ALARA. CONTRAST: Patient received 116 cc opti 320 of IV contrast COMPARISON: No relevant prior studies available. FINDINGS: Lung bases: Unremarkable. No mass. No consolidation. ABDOMEN: Liver: Hepatic steatosis. Gallbladder and bile ducts: Moderate pericholecystic edema, concerning for acute cholecystitis. Surgical evaluation recommended. No radiopaque gallstones. No ductal dilation. Pancreas: Unremarkable. No mass. No ductal dilation. Spleen: Unremarkable. No splenomegaly. Adrenals: Unremarkable. No mass. Kidneys and ureters: Unremarkable. No solid mass. No hydronephrosis. Stomach and bowel: Unremarkable. No obstruction. No mucosal thickening. PELVIS: Appendix: No findings to suggest acute appendicitis. Bladder: Unremarkable. No mass. Reproductive: Unremarkable as visualized. ABDOMEN and PELVIS: Intraperitoneal space: Unremarkable. No free air. No significant fluid collection. Bones/joints: No acute fracture. No dislocation. Soft tissues: Unremarkable. Vasculature: Unremarkable. No abdominal aortic aneurysm. Lymph nodes: Unremarkable. No enlarged lymph nodes. IMPRESSION: Moderate pericholecystic edema, concerning for acute cholecystitis. Surgical evaluation recommended. No radiopaque gallstones. Electronically signed by: Alphonse Telles MD 07/13/23 21:57 PM
[2023-07-13] MEDS: MoRPHine SULFATE 4 MG/ML 1 ML CARP\\VIAL IV STA (22:38)
--- NOTE | 2023-07-13 22:50 | Surgery Consultation ---
Date of Consultation July 13, 2023 Assessment & Plan (1) Acute cholecystitis: I discussed with the treating emergency room physician and the patient is being admitted on the hospital service. The patient has numerous medical problems as outlined in the HPI. He is also noted to have elevated blood pressure so we would like the hospitalist to have these conditions optimized prior to entertaining any surgical intervention From a surgical perspective we recommend the following: Implement n.p.o. status Provide IV fluid for hydration Follow serial labs Provide analgesics Provide antiemetics Antibiotics to be initiated. As the patient describes anaphylaxis to penicillin and we will avoid penicillin and penicillin type derivatives along with cephalosporins. I did asked the patient if he has ever taken Cipro and Flagyl and he has not ever had these antibiotics. Will utilize Cipro and Flagyl for antibiotic coverage, monitoring closely for any type of allergic reaction. Patient has an abnormal urinalysis and a urine culture has been sent. The above noted antibiotics should cover the most likely pathogens if the patient does have bacterial growth on his urine culture. The patient does have cholecystitis by CT scan. Will obtain a gallbladder ultrasound for further delineation of the biliary system I discussed the case with my attending physician Dr. Ramon Amor and we have tentatively placed the patient on the OR schedule for 07/14/2023 for a cholecystectomy Would recommend using only SCDs for DVT prevention, no chemical means due to planned surgery Additional recommendations with forthcoming based on pending studies, the patient's clinical course as unfolds, and his postoperative recovery thereafter Supervising Physician Co-Signing Physician Notes I personally saw and evaluated the patient with Daniel Alanis PA-C and agree with the assessment and plan. 43-year-old morbidly obese male with acute cholecystitis He has been admitted to the medical team Keep n.p.o. with IV fluids and IV antibiotics His ultrasound and CT images and results were personally viewed and interpreted by myself, consistent with acute cholecystitis Will plan on laparoscopic cholecystectomy, possible open, possible intraoperative cholangiogram History of Present Illness Reason for Consultation: Acute cholecystitis History of Present Illness This is a 43-year-old male who presented to the emergency department secondary to abdominal pain. Patient says that the pain woke him up from his sleep at approximately 4:00 AM on 07/13/2023. He said that the pain was located primarily in his right upper quadrant and under his right inferior rib cage. He did have associated nausea and vomiting. He did not take his temperature but he did break out in a sweat. Patient says that he took [place] and attempts to relieve his symptoms with no avail. As his symptoms persisted he presented to the emergency department. He does note that the only factor that improved his pain were medicines administered in the emergency department. The patient notes that he has never had any prior abdominal surgeries. Since arrival to hospital the patient has had labs and imaging which I independent reviewed. Chest x-ray showed no evidence of pneumonia. An EKG showed sinus tachycardia. There did not appear to be any changes indicative of acute ischemia. Labs included a CBC where white blood cell count was elevated at 14.9. Hemoglobin and hematocrit along with the platelet count were normal. Chemistry profile showed sodium was 134 with a normal potassium. BUN and creatinine were also normal. There is no elevation of the patient's lipase. The patient's LFTs were all nonelevated. Urinalysis showed cloudy urine which was negative for nitrites. There is also no leukocyte Estrace. There is pyuria with greater than 30 white blood cells per high-power field and 4+ bacteria on this study. The patient also underwent imaging in the form of a CT scan of the abdomen and pelvis. This study showed that patient had moderate pericholecystic edema which was concerning for acute cholecystitis. No gallstones or ductal dilatation were visualized. There were no findings to suggest an acute appendicitis. There is no free intraperitoneal air or significant intraperitoneal free fluid. At the time of my interview the patient was resting comfortably in bed and he was in no distress. Concerning past medical history the patient says that he is treated for diabetes. He also has obesity, hypertension, and obstructive sleep apnea for which he uses CPAP Concerning past surgical history he denies prior surgeries Concerning allergies the patient notes that he is allergic to penicillin for which he describes an anaphylactic type reaction as it caused throat and facial swelling. He also notes he is allergic to iodine and he is unsure of the reaction that this causes Concerning social history the patient does not smoke Allergies Allergy/AdvReac Type Severity Reaction Status Date / Time Penicillins Allergy Severe THROAT/FACE Verified 07/13/23 21:46 SWELLS iodine Allergy Unknown CAN'T Unverified 07/13/23 21:46 REMEMBER Home Medications Medication Instructions Recorded Confirmed Type zbyduhbo-epuxgbpk-dcccc acid 400 1 tab PO DAILY 07/22/21 07/13/23 History mcg-vit K 20 mcg-lycop 300 mcg tablet (Men's One Daily) dulaglutide 0.75 mg/0.5 mL 0.75 mg subcut WK 07/13/23 07/13/23 History subcutaneous pen injector (Trulicity) empagliflozin 25 mg tablet 25 mg PO QAM 07/13/23 07/13/23 History (Jardiance) fenofibrate nanocrystallized 145 145 mg PO QAM 07/13/23 07/13/23 History mg tablet losartan 100 1 tab PO DAILY 07/13/23 07/13/23 History mg-hydrochlorothiazide 25 mg tablet Patient History Medical History (Updated 07/14/23 @ 08:16 by Surya Cueto MD) Sleep apnea Periodic limb movement disorder Morbid obesity Diabetes mellitus Lumbar radiculopathy Hyperglycemia High blood pressure Social History Smoking Status: Former smoker Second Hand Exposure: No; Do You Dip or Chew Tobacco: No; Tobacco Cessation Education Requested by Patient: No Hx Alcohol Use: Yes Alcohol type: beer Hx Substance Use: No Preferred Language: [place] Communication Ability: Effective System Development Engineer Required: No Beliefs That Will Affect Care: None Current Living Situation: Spouse and Family Other Information That Helps Us Care for You: No Feels Safe at Home: Yes Safety Concerns: Feels Safe At This Time Assistive Devices: CPAP and Glasses Review of Systems Constitutional: + sweats Eyes: + corrective lenses Ear, Nose, Mouth, Throat: no ear pain Respiratory: no cough and no dyspnea Cardiovascular: no chest pain Gastrointestinal: as per Subjective / HPI and + abdominal pain Genitourinary: no dysuria Musculoskeletal: no back pain Integumentary: no rash Neurologic: no localized weakness Physical Exam Constitutional: WD/WN, vitals as above + obese Eyes: + anicteric sclerae Wears glasses ENMT: Ears: no hearing impairment and no external ear abnormality Mouth: no oropharynx abnormality Neck: trachea midline Respiratory: normal respiratory effort; no respiratory distress and no labored breathing No wheezing or use of accessory muscles. Breath sounds are slightly decreased at bases Cardiovascular: Rate/Rhythm: regular rate and regular rhythm Vessels: dors janelle pedis pulses present and radial pulses present Gastrointestinal (Abdomen): Abdomen is rotund and soft. It is nondistended. There is no rebound tenderness or guarding. The patient did have marked tenderness in the right upper quadrant with palpation. He also had a positive Ariza sign. Patient also had to a lesser degree pain in the right lower quadrant Musculoskeletal: No calf tenderness. No foot wounds Skin: no rashes Neurologic: moves all extremities Psychiatric: A+Ox3, euthymic affect Results & Data Vital Signs (Past 12 Hours) Vital Signs Temp Pulse Pulse Resp BP BP Pulse Ox 07/13/23 19:55 101 H 07/13/23 19:52 104 H 20 94 07/13/23 19:52 104 H 16 165/96 H 95 07/13/23 18:47 36.6 C 113 H 18 168/109 H 97 O2 Del Method 07/13/23 19:55 07/13/23 19:52 Room Air 07/13/23 19:52 Room Air 07/13/23 18:47 Room Air PG Care Time/CCT Total # of Minutes Spent Total Time Spent with Patient: Total time spent is greater than 50% in coordination of care (as documented) at patient's floor/unit and/or counseling patient: Coding Level of Care Code 64663 IN/OBS CONSULT LVL 5,80M Diagnoses Acute cholecystitis K81.0
[2023-07-13] MEDS: CIPROFLOXACIN / D5W 400 MG/200 ML BAG IV STA (23:16)
--- NOTE | 2023-07-13 23:51 | History & Physical Report ---
Date of Service July 13, 2023 Assessment & Plan (1) Acute cholecystitis: Plan: 43-year-old male with past medical history significant for type 2 diabetes, hyperlipidemia, obstructive sleep apnea on CPAP, hypertension, obesity, periodic limb movement disorder presents with abdominal pain and found to have acute cholecystitis. Patient states since last 4 days having abdominal pain. Initially pain was located in the right upper quadrant. And later moved to the epigastric region. Thought indigestion took antacids. The pain was not improving. Then he took ibuprofen couple of times the day before yesterday . And the he woke up yesterday with the pain resolved. But again woke up at 4 AM today with the pain. Also with nausea and vomiting. At this time pain is located lower abdomen. As the pain was not improving came to the ER. He was sweating today. Denies any headache. No dizziness. No blurred visions. No earache or runny nose. No sore throat. No cough. No chest pain. No shortness of breath. Urine is very dark. No diarrhea or constipation. Before this episode he was ambulating and climbing steps okay. Currently resting comfortably and hemodynamically stable. Acute cholecystitis Abdominal pain LFTs okay CT scan consistent with cholecystitis Await gallbladder ultrasound N.p.o. IV fluids IV Cipro and Flagyl IV antiemetics as needed IV Dilaudid as needed Patient at acceptable risk to proceed with procedures Surgery consulted and appreciate inputs Hypertension Continue home dose of losartan/ hydrochlorothiazide IV labetalol as needed Will monitor Diabetes Hold home medications Insulin sliding scale Will monitor Will follow HbA1c levels Obesity Needs counseling Sleep apnea CPAP nightly Hyperlipidemia On fenofibrate DVT prophylaxis SCDs for now Disposition Med/tele Full code History of Present Illness Chief Complaint: ABDOMINAL PAIN Primary Care Provider: Michi Moreno MD 43-year-old male with past medical history significant for type 2 diabetes, hyperlipidemia, obstructive sleep apnea on CPAP, hypertension, obesity, periodic limb movement disorder presents with abdominal pain and found to have acute cholecystitis. Patient states since last 4 days having abdominal pain. Initially pain was located in the right upper quadrant. And later moved to the epigastric region. Thought indigestion took antacids. The pain was not improving. Then he took ibuprofen couple of times the day before yesterday . And he woke up yesterday with the pain resolved. But again woke up at 4 AM today with the pain. Also with nausea and vomiting. At this time pain is located lower abdomen. As the pain was not improving came to the ER. He was sweating today. Denies any headache. No dizziness. No blurred visions. No earache or runny nose. No sore throat. No cough. No chest pain. No shortness of breath. Urine is very dark. No diarrhea or constipation. Before this episode he was ambulating and climbing steps okay. Currently resting comfortably and hemodynamically stable. Past medical history. As mentioned above Past surgical history. Vasectomy Social history. . Quit smoking in 2005. Alcohol occasional. No drug use. Family history. Father had heart disorder. Hypertension. Obesity. Mother had hypertension. Brother has asthma. Daughter has asthma. Allergies Allergy/AdvReac Type Severity Reaction Status Date / Time Penicillins Allergy Severe THROAT/FACE Verified 07/13/23 21:46 SWELLS iodine Allergy Unknown CAN'T Unverified 07/13/23 21:46 REMEMBER Home Medications Medication Instructions Recorded Confirmed Type jocgtbjv-rwyvkmbl-xhmev acid 400 1 tab PO DAILY 07/22/21 07/13/23 History mcg-vit K 20 mcg-lycop 300 mcg tablet (Men's One Daily) dulaglutide 0.75 mg/0.5 mL 0.75 mg subcut WK 07/13/23 07/13/23 History subcutaneous pen injector (Trulicity) empagliflozin 25 mg tablet 25 mg PO QAM 07/13/23 07/13/23 History (Jardiance) fenofibrate nanocrystallized 145 145 mg PO QAM 07/13/23 07/13/23 History mg tablet losartan 100 1 tab PO DAILY 07/13/23 07/13/23 History mg-hydrochlorothiazide 25 mg tablet Past Med/Surg History Medical History Lumbar radiculopathy Hyperglycemia High blood pressure Social History Smoking Status: Former smoker Second Hand Exposure: No; Do You Dip or Chew Tobacco: No; Tobacco Cessation Education Requested by Patient: No Hx Alcohol Use: Yes Alcohol type: beer Hx Substance Use: No Preferred Language: Congolese Communication Ability: Effective 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 ENT- oropharynx clear Neck- supple, no JVD. Lungs- clear to auscultation no wheezing or crackles. Heart- regular rhythm; no murmur, no gallop. Abdomen- normal bowel sounds, soft, diffuse tender no distension or guarding or distension Extremities- mild pretibial edema, no erythema seen. Neuro- alert, oriented x 3; PERRL, no facial palsy; no dysarthria; moves extremities. Skin- warm & dry Results & Data Results & Data Vital Signs (Past 12 Hours) Vital Signs Temp Pulse Pulse Resp BP BP Pulse Ox 07/13/23 23:22 31 H 165/94 H 92 07/13/23 23:13 20 07/13/23 22:00 98 H 42 H 163/86 H 95 07/13/23 21:00 105 H 23 186/114 H 97 07/13/23 20:00 102 H 27 H 150/94 H 96 07/13/23 19:55 101 H 07/13/23 19:52 104 H 20 94 07/13/23 19:52 104 H 16 165/96 H 95 07/13/23 18:47 36.6 C 113 H 18 168/109 H 97 O2 Del Method 07/13/23 23:22 07/13/23 23:13 07/13/23 22:00 07/13/23 21:00 07/13/23 20:00 07/13/23 19:55 07/13/23 19:52 Room Air 07/13/23 19:52 Room Air 07/13/23 18:47 Room Air Diagnostic Findings Laboratory Results WBC 14.95 K/ul (4.8-10.8) H 07/13/23 19:15 RBC 5.57 M/uL (4.70-6.10) 07/13/23 19:15 Hgb 15.6 g/dl (14.0-18.0) 07/13/23 19:15 Hct 46.8 % (42.0-52.0) 07/13/23 19:15 MCV 84.0 fL (80.0-100.0) 07/13/23 19:15 MCH 28.0 pg (25.0-34.0) 07/13/23 19:15 MCHC 33.3 g/dL (32.0-36.0) 07/13/23 19:15 RDW Std Deviation 43.3 fL (36.4-46.3) 07/13/23 19:15 RDW Coeff of Wood 14.1 % (11.5-14.5) 07/13/23 19:15 Plt Count 262 K/uL (130-400) 07/13/23 19:15 MPV 9.8 fL (9.4-12.4) 07/13/23 19:15 Immature Gran % (Auto) 0.5 % 07/13/23 19:15 Neut % (Auto) 75.7 % 07/13/23 19:15 Lymph % (Auto) 15.6 % 07/13/23 19:15 Divide % (Auto) 6.8 % 07/13/23 19:15 Eos % (Auto) 1.0 % 07/13/23 19:15 Baso % (Auto) 0.4 % 07/13/23 19:15 Neut # (Auto) 11.31 K/uL (1.40-6.50) H 07/13/23 19:15 Lymph # (Auto) 2.33 K/uL (1.20-3.40) 07/13/23 19:15 Divide # (Auto) 1.02 K/uL (0.11-0.59) H 07/13/23 19:15 Eos # (Auto) 0.15 K/uL (0.00-0.50) 07/13/23 19:15 Baso # (Auto) 0.06 K/uL (0.00-0.20) 07/13/23 19:15 Immature Gran # (Auto) 0.08 K/uL (0.01-0.20) 07/13/23 19:15 Sodium 134 mmol/L (136-145) L 07/13/23 19:15 Potassium 4.1 mmol/L (3.5-5.1) 07/13/23 19:15 Chloride 104 mmol/L (98-107) 07/13/23 19:15 Carbon Dioxide 22 mmol/L (21-32) 07/13/23 19:15 Anion Gap 8 (3-11) 07/13/23 19:15 BUN 9 mg/dl (6-23) 07/13/23 19:15 Creatinine 0.75 mg/dl (0.6-1.4) 07/13/23 19:15 Est Cr Clr Drug Dosing 192.5 ml/min 07/13/23 19:15 Est GFR ( Amer) 130.2 ml/min 07/13/23 19:15 Est GFR (Non-Af Amer) 112.4 ml/min 07/13/23 19:15 BUN/Creatinine Ratio 12.0 (10-20) 07/13/23 19:15 Glucose 188 mg/dl (70-99(Fasting)) H 07/13/23 19:15 Calcium 9.0 mg/dl (8.6-10.3) 07/13/23 19:15 Total Bilirubin 0.8 mg/dl (0.2-1.0) 07/13/23 19:15 AST 13 U/L (13-39) 07/13/23 19:15 ALT 18 U/L (7-52) 07/13/23 19:15 Alkaline Phosphatase 61 U/L (34-104) 07/13/23 19:15 Total Protein 8.0 gm/dl (6.0-8.3) 07/13/23 19:15 Albumin 3.8 gm/dl (3.4-5.0) 07/13/23 19:15 Globulin 4.2 gm/dl (2.5-4.0) H 07/13/23 19:15 Albumin/Globulin Ratio 0.9 (0.9-2) 07/13/23 19:15 Lipase 34 U/L (11-82) 07/13/23 19:15 Urine Color Dark Yellow 07/13/23 19:58 Urine Appearance Cloudy (Clear) A 07/13/23 19:58 Urine pH 6.0 (4.5-7.5) 07/13/23 19:58 Ur Specific [place] > 1.045 (1.000-1.030) H 07/13/23 19:58 Urine Protein 2+ (Negative) H 07/13/23 19:58 Urine Glucose (UA) 3+ (Negative) H 07/13/23 19:58 Urine Ketones Trace (Negative) H 07/13/23 19:58 Urine Blood Trace (Negative) H 07/13/23 19:58 Urine Nitrite Negative (Negative) 07/13/23 19:58 Urine Bilirubin Negative (Negative) 07/13/23 19:58 Urine Urobilinogen Negative (Negative) 07/13/23 19:58 Ur Leukocyte Esterase Negative (Negative) 07/13/23 19:58 Urine WBC (Auto) >30 /hpf (0-5) H 07/13/23 19:58 Urine RBC (Auto) 0-4 /hpf (0-4) 07/13/23 19:58 U Hyaline Cast (Auto) 1-5 /lpf (0-5) 07/13/23 19:58 U Epithel Cells (Auto) >30 /lpf (0-5) H 07/13/23 19:58 Urine Bacteria (Auto) 4+ (Negative) H 07/13/23 19:58 Impressions Abdomen/Pelvis CT 07/13/23 20:20 Exam(s): CT ABDOMEN + PELVIS With Contrast IV Amt: 116 cc opti 320 EXAM: CT Abdomen and Pelvis With Intravenous Contrast CLINICAL HISTORY: Reason for exam: RLQ abd pain. TECHNIQUE: Axial computed tomography images of the abdomen and pelvis with intravenous contrast. CTDI is 28.14 mGy and DLP is 1608.16 mGy-cm. Automated exposure control was utilized for the study. A dose lowering technique was utilized adhering to the principles of ALARA. CONTRAST: Patient received 116 cc opti 320 of IV contrast COMPARISON: No relevant prior studies available. FINDINGS: Lung bases: Unremarkable. No mass. No consolidation. ABDOMEN: Liver: Hepatic steatosis. Gallbladder and bile ducts: Moderate pericholecystic edema, concerning for acute cholecystitis. Surgical evaluation recommended. No radiopaque gallstones. No ductal dilation. Pancreas: Unremarkable. No mass. No ductal dilation. Spleen: Unremarkable. No splenomegaly. Adrenals: Unremarkable. No mass. Kidneys and ureters: Unremarkable. No solid mass. No hydronephrosis. Stomach and bowel: Unremarkable. No obstruction. No mucosal thickening. PELVIS: Appendix: No findings to suggest acute appendicitis. Bladder: Unremarkable. No mass. Reproductive: Unremarkable as visualized. ABDOMEN and PELVIS: Intraperitoneal space: Unremarkable. No free air. No significant fluid collection. Bones/joints: No acute fracture. No dislocation. Soft tissues: Unremarkable. Vasculature: Unremarkable. No abdominal aortic aneurysm. Lymph nodes: Unremarkable. No enlarged lymph nodes. IMPRESSION: Moderate pericholecystic edema, concerning for acute cholecystitis. Surgical evaluation recommended. No radiopaque gallstones. Electronically signed by: Alphonse Telles MD 07/13/23 21:57 PM ECG Additional Comments: ECG. Sinus tachycardia rate of 107. No significant change was found. Code Status & VTE Plan VTE Prophylaxis Plan VTE Prophylaxis will be ordered: Yes
[2023-07-13] MEDS: LABETALOL HCL IV 5 MG/ML 20ML IV STA (23:54)
--- NOTE | 2023-07-14 00:36 | Ultrasound Report ---
Exam(s): US GALLBLADDER EXAM: US Abdomen Limited, Gallbladder CLINICAL HISTORY: Reason for exam: cholecystitis. TECHNIQUE: Real-time ultrasound of the right upper quadrant with image documentation. COMPARISON: No relevant prior studies available. FINDINGS: Liver: Hepatic steatosis. Gallbladder: Cholelithiasis. Mild relative wall thickening measuring 4 mm. Findings are consistent with acute cholecystitis. Common bile duct: Common bile duct measures 6 mm, within normal limits. No stones. No dilation. Pancreas: Unremarkable as visualized. IMPRESSION: Cholelithiasis. Mild relative wall thickening measuring 4 mm. Findings are consistent with acute cholecystitis. Electronically signed by: Alphonse Telles MD 07/14/23 00:35 AM
[2023-07-14] MEDS ORDERED: GLUCOSE 40% GEL 15 GM TUBE PO PRN (01:02)
[2023-07-14] MEDS ORDERED: GLUCOSE 10 TAB/TUBE PO PRN (01:02)
[2023-07-14] MEDS ORDERED: DEXTROSE 50% 50 ML SYRINGE IV PRN (01:02)
[2023-07-14] MEDS ORDERED: ONDANSETRON INJ 2 MG/ML 2 ML VIAL IV PRN ×2 (01:02→14:32)
[2023-07-14] MEDS ORDERED: LABETALOL HCL IV 5 MG/ML 20ML IV PRN ×2 (01:02→14:32)
[2023-07-14] MEDS ORDERED: ACETAMINOPHEN 325 MG TAB PO PRN (01:02)
[2023-07-14] MEDS ORDERED: NITROGLYCERIN SL 0.4 MG/TAB TAB SL PRN (01:02)
[2023-07-14] MEDS ORDERED: CARBOHYDRATES FOR HYPOGLYCEMIA PO PRN (01:02)
[2023-07-14] MEDS ORDERED: GLUCAGON FOR INJ 1 MG VIAL SQ PRN (01:02)
[2023-07-14] MEDS: metroNIDAZOLE 500 MG/100 ML BAG IV STA (01:23)
[2023-07-14] MEDS: INSULIN ASPART PER UNIT CHARGE SC SCH ×2 (03:14→18:03)
[2023-07-14 07:01] LABS: Basophils # (auto) 0.02 K/uL (0.00-0.20); Basophils % (auto) 0.1 %; Hematocrit (blood only) 47.6 % (42.0-52.0); Hemoglobin 15.2 g/dl (14.0-18.0); Immature Granulocytes # (auto) 0.11 K/uL (0.01-0.20); Immature Granulocytes % (auto) 0.8 %; Lymphocytes # (auto) 1.37 K/uL (1.20-3.40); Lymphocytes % (auto) 9.5 %; Mean Corpuscular Hemoglobin 27.8 pg (25.0-34.0); Mean Corpuscular Hgb Conc 31.9 g/dL (32.0-36.0); Mean Platelet Volume 10.1 fL (9.4-12.4); Monocytes # (auto) 0.25 K/uL (0.11-0.59); Monocytes % (auto) 1.7 %; Neutrophils % (auto) 87.9 %; Platelet Count 280 K/uL (130-400); RDW Coefficient of Variation 14.1 % (11.5-14.5); RDW Standard Deviation 45.1 fL (36.4-46.3); Red Blood Count 5.47 M/uL (4.70-6.10); White Blood Count 14.45 K/ul (4.8-10.8)
[2023-07-14 07:27] LABS: Albumin Globulin Ratio 0.9 (0.9-2); Albumin Level 3.9 gm/dl (3.4-5.0); Bilirubin,Total 0.6 mg/dl (0.2-1.0); Calcium 9.1 mg/dl (8.6-10.3); Creatinine Clr Calc Pharmacy 191.8 ml/min; Est GFR (African American) 130.2 ml/min; Est GFR (Non-African American) 112.4 ml/min; Globulin 4.3 gm/dl (2.5-4.0); Potassium 4.5 mmol/L (3.5-5.1); Total Protein 8.2 gm/dl (6.0-8.3)
[2023-07-14 07:33] LABS: Calcium 9.2 mg/dl (8.6-10.3); Creatinine Clr Calc Pharmacy 191.8 ml/min; Est GFR (African American) 130.2 ml/min; Est GFR (Non-African American) 112.4 ml/min; Magnesium 2.2 mg/dl (1.7-2.4); Potassium 4.5 mmol/L (3.5-5.1)
[2023-07-14 07:49] LABS: Estimated Average Glucose 212 mg/dl
--- NOTE | 2023-07-14 07:51 | XRay Report ---
XR chest 1V portable HISTORY: Preop evaluation. COMPARISON: Chest 07/22/2021. FINDINGS: Low lung volumes. The heart remains mildly enlarged. No focal lung consolidations to sugges t a pneumonia. No evidence for pulmonary edema. No pleural effusions. No pneumothorax. Calcified gran uloma within the left midlung zone, unchanged. IMPRESSION: No significant change compared to the prior study. No acute process. ACT 112: Negative or not required by law. Electronically signed by: Surya Gooden M.D. 07/14/2023 7:50 AM
[2023-07-14 08:06] LABS: INR 1.1 (0.9-1.1); Prothrombin Time 11.6 Seconds (9.0-12.0)
[2023-07-14] MEDS: LOSARTAN/HCTZ 50/12.5MG TAB PO SCH (08:26)
[2023-07-14] MEDS: FENOFIBRATE NANOCRYSTALLIZED 145 MG TABLET PO SCH (08:26)
[2023-07-14] MEDS: metroNIDAZOLE 500 MG/100 ML BAG IV SCH (08:26)
[2023-07-14] MEDS: CEROVITE ADV FORMULA TAB PO SCH (08:26)
[2023-07-14] MEDS: FAMOTIDINE 20 MG in SYRINGE 3 ML IV SCH (08:29)
[2023-07-14] MEDS ORDERED: FAMOTIDINE 200 MG/20 ML VIAL IV SCH (09:00)
[2023-07-14] MEDS: CIPROFLOXACIN / D5W 400 MG/200 ML BAG IV SCH (09:24)
--- OUTSIDE RECORDS SUMMARY | 2023-07-14 09:42 | External Medical Summary | Summary of Care ---
Author Name Unknown Organization [facility] Address [address] [facility] [place] [address] Phone [phone] Care Team Providers Care Wildlife Biology Technician Name Role Phone Kezia Elmore MD Primary Care Provider [phone] [phone] Reason for Visit * Reason Comments eRx-Medication Refill Encounter Details Date Type Department Care Team (Late st Contact Info) Description 04/10/2023 Refill Family Practice [facility] [address] [place] [address] Kezia Elmore MD [address] [place] [address] HTN, goal below 140/90 Allergies Active Allergy Reactions Criticality Noted Date Comments Ivp Dye Nausea/vomiting Medium 12/13/2006 Nausea and vomiting on administration IV dye for CT scan of abdomen documented as of this encounter (statuses as of 05/17/2023) Medications Medication Sig Dispensed Refills Start Date End Date Status Multiple Vitamins-Iron (MULTI-DAY PLUS IRON) TABS Take 1 Tab by mouth daily. 0 Active metFORMIN HCl ER 500 MG Oral Tablet Extended Release 24 Hour (Glucophage XR) TAKE 4 TABLETS BY MOUTH ONCE DAILY WITH A MEAL 360 Tablet 0 10/09/2021 Active Methocarbamol 500 MG Oral Tablet (Robamol) TAKE 1 TABLET BY MOUTH 4 TIMES DAILY FOR MUSCLE SPASM 30 Tablet 1 10/09/2021 Active Fenofibrate 145 MG Oral Tablet (Tricor) TAKE 1 TABLET BY MOUTH IN THE MORNING 90 Tablet 0 12/02/2022 Active Jardiance 25 MG Oral Tablet (Empagliflozin) TAKE 1 TABLET BY MOUTH IN THE MORNING 90 Tablet 0 12/02/2022 Active Losartan Potassium-HCTZ 100-25 MG Oral Tablet (Hyzaar)Indicatio ns:HTN, goal below 140/90 Take 1 tablet by mouth once daily 30 Tablet 0 04/11/2023 Active Losartan Potassium-HCTZ 100-25 MG Oral Tablet (Hyzaar)Indicatio ns:HTN, goal below 140/90 Take 1 tablet by mouth once daily 30 Tablet 0 03/17/2023 04/11/2023 Discontinued documented as of this encounter (statuses as of 05/17/2023) Active Problems Problem Noted Date Diagnosed Date HTN, goal below 130/80 03/03/2021 Type 2 diabetes mellitus wit h hemoglobin A1c goal of less than 7.0% 09/05/2020 Dyslipidemia 09/05/2020 KELLIE on CPAP 05/16/2019 Periodic limb movement disorder (PLMD) 9 Super obese 11/11/2009 Overview: Per Obesity Protocol, #19 ICD-10 update of inactive term documented as of this encounter (statuses as of 05/17/2023) Resolved Problems Problem Noted Date Diagnosed Date Resolved Date Hypersomnolence 05/16/2019 09/05/2020 Body mass index (BMI) of 50. 0 to 59.9 in adult 12/04/2018 05/16/2023 Overview: Per Obesity protocol - Per Obesity Protocol, #19 ICD-10 update of inactive term Chronic rhinitis 02/06/2013 09/05/2020 Sprain of ankle 04/28/2009 11/08/2018 ADVANCE DIRECTIVE INFORMATION 12/28/2004 04/16/2020 Overview: No, Advance Directive brochure offered , patient declined. documented as of this encounter (statuses as of 05/17/2023) Immunizations Name Administration Dates Next Due Pneumococcal Polysaccharide PPV23 (Pneumovax) TDAP (age 10 and older)(Boostrix) 03/07/2015,02/2015 documented as of this encounter Social History Tobacco Use Types Packs/Day Years Used Date Smoking Tobacco: Former Cigarettes 0.5 Q uit: 04/29/2006 Smokeless Tobacco: Former Comments:smoked ages 18-25 o ccasional cigarette Alcohol Use Standard Drinks/Week Comments Yes 0 (1 standard drink = 0.6 oz pur e alcohol) once or twice a month if that PHQ-2 Answer Date Recorded PHQ Adult Total Score 0 09/10/2020 Hunger Vital Sign Answer Date Recorded Within the past 12 months, y ou worried that your food would run out before you got the money to buy more. Never true 09/11/19 21 Within the past 12 months, t he food you bought just didn't last and you didn't have money to get more. Never true 09/10/2020 Sex and Gender Information Value Date Recorded Sex Assigned at Male 05/17/2023 12:45 PM EST Gender Identity Male 05/17/2023 12:45 PM EST Sexual Orientation Straight 05/17/2023 12 :45 PM EST Job Start Date Occupation Industry Not on file Not on file Not on file documented as of this encounter Miscellaneous Notes * Telephone Encounter - Kezia Elmore MD - 04/11/2023 1:04 PM ESTSigned Prescriptions: Disp Refills Losartan Potassium-HCTZ 100-25 MG Oral Tab*30 Tab*0 Sig: Take 1 tablet by mouth once daily Authorizing Provider: KEZIA ELMORE * [facility] 12[facility]40 PM ESTPending Prescriptions: Disp Refills Losartan Potassium-HCTZ 100-25 MG Oral Tab*30 Tab*0 Sig: Take 1 tablet by mouth once daily * Telephone Encounter - Tanner Jensen [facility] - 04/11/2023 12:39 PM EST Multiple attempts Unable to authorize medication refills for pended medication(s) at this time. Part of the protocol criteria used for refill authorization was not satisfied. Patient needs CMP and office visit within the past year. Please approve if appropriate. Thank You, Tanner Johnson [facility] Clinical Pharmacist Centralized Clinical Pharmacy Services (CCPS) (formerly Telepharmacy) 04/11/2023, 12:39 PM * Telephone Encounter - Tanner Jensen [facility] - 04/11/2023 12:39 PM EST Pending Prescriptions: Disp Refills Losartan Potassium-HCTZ 100-25 MG Oral Ta*30 Tab*0 Sig: Take 1 tablet by mouth once daily Last Visit: 03/03/2021 (in office), Visit date not found (telemedicine) Next Visit: Visit date not found If no future appointments scheduled, and last appointment is greater than a year ago, please schedule patient for a follow-up appointment Last date the medication was ordered: 03/17/23 Pharmacy: [facility] [address] [place] [address] Is this request for a controlled substance? No Urine Drug Screen:No results found for this or any previous visit. Patient Phone Numbers Labs: Lab Results Component Value Date/Time CREAT 0.8 03/09/2021 08:21 AM CREAT 0.8 12/07/2019 10:44 AM POTASSIUM 4.6 03/09/2021 08:21 AM POTASSIUM 4.6 12/07/2019 10:44 AM TSH 1.60 12/09/2018 09:35 AM LDLCALC 69 03/07/2015 09:47 AM LDLDIRECT 68 10/24/2021 09:06 AM LDLDIRECT 42 12/07/2019 10:44 AM ALT 37 10/24/2021 09:06 AM ALT 38 12/13/2015 12:00 AM ALT 52 (H) 05/03/2009 08:11 AM HGBA1C 8.6 (H) 10/24/2021 09:06 AM HGBA1C 8.9 (H) 12/07/2019 10:44 AM documented in this encounter Plan of Treatment Upcoming Encounters Date Type Department Care Team (Late st Contact Info) Description 05/18/2023 11:00 AM EST Office Visit [facility] [address] [place] [address] Kezia Elmore MD [address] [place] [address] Health Maintenance Due Date Last Done Comments COVID-19 Vaccine (#1) 1980 HIV Screening 02/28/1995 Diabetic Eye Exam 02/28/1998 Diabetic Foot Exam 02/28/1998 Hepatitis C Screening 02/28/1998 Pneumococcal Vaccine: Pediatrics (0 to 5 Years) and At-Risk Patients (6 to 64 Years) (2 - PCV) 12/06/2020 12/07/2019 Depression Screening 09/10/2021 09/10/2020 B-12 09/17/2021 09/17/2020, 06/11/2019 Influenza Vaccine (FLU shot) (#1) 2023 HbA1c 11/16/2023 05/17/2023, 09/28, 03/09/2021, Additional history exists Albumin/Creatinine Ratio 05/17/2024 05/17/2023 GFR 05/17/2024 05/17/2023, 02/27, 12/07/2019, Additional history exists DTaP,Tdap,and Td Vaccines (4 - Td or Tdap) 03/07/2025 03/07/2015, 06/08/2014, 01/20/2000, Additional history exists Lipid Panel 10/24/2026 10/24/2021, 04/0 10/2021, 12/07/2019, Additional history exists Hepatitis B Completed 11/16/1996, 04/29, 04/11/1996 GARDASIL-HPV IMMUNIZATION SERIES Aged Out No longer eligible based on patient's age to complete this topic MENINGOCOCCAL (MENACTRA/MENVEO) Aged Out No longer eligible based on patient's age to complete this topic documented as of this encounter Medical Devices Not on filedocumented as of this encounter Visit Diagnoses Diagnosis HTN, goal below 140/90 Unspecified essential hypertension documented in this encounter Care Teams Wildlife Biology Technician Relationship Specialty Start Date End Date Kezia Elmore MD [address] [place] [address] PCP - General Family Medicine 09/10/20 documented as of this encounter
--- OUTSIDE RECORDS SUMMARY | 2023-07-14 09:42 | External Medical Summary | Summary of Care ---
Author Name Unknown Organization [facility] Address [address] [place] [facility] [place] [address] Phone [phone] Care Team Providers Care Substitute Crossing Guard Name Role Phone Michi Moreno MD Primary Care Provider [phone] [phone] Encounter Details Date Type Department Care Team (Late st Contact Info) Description 05/18/2023 Telephone Pulmonary Medicine, [facility] [address] [facility] [place] [address] Simona Lopez, [address] [place] [address] Allergies Active Allergy Reactions Criticality Noted Date Comments Ivp Dye Nausea/vomiting Medium 12/13/2006 Nausea and vomiting on administration IV dye for CT scan of abdomen documented as of this encounter (statuses as of 05/18/2023) Medications Medication Sig Dispensed Refills Start Date [...] Active Losartan Potassium-HCTZ 100-25 MG Oral Tablet (Hyzaar)Indications: HTN, goal below 140/90 Take 1 tablet by mouth once daily 30 Tablet 0 04/11/2023 Active documented as of this encounter (statuses as of 05/18/2023) Active Problems Problem Noted Date Diagnosed Date HTN, goal below 130/80 03/03/2021 Type 2 diabetes mellitus wit h hemoglobin A1c goal of less than 7.0% 09/05/2020 Dyslipidemia 09/05/2020 KELLIE on CPAP 05/16/2019 Periodic limb movement disorder (PLMD) 9 Super obese 11/11/2009 Overview: Per Obesity Protocol, #19 ICD-10 update of inactive term documented as of this encounter (statuses as of 05/18/2023) Resolved Problems Problem Noted Date Diagnosed Date [...] as of this encounter (statuses as of 05/18/2023) Immunizations Name Administration Dates Next Due Pneumococcal [...] the money to buy more. Never true 05/17/20 23 Within the past 12 months, t he food you bought just didn't last and you didn't have money to get more. Never true 05/17/2023 Sex and Gender Information Value Date Recorded Sex Assigned at Male 05/17/2023 12:45 PM EST Gender Identity Male 05/17/2023 12:45 PM EST Sexual Orientation Straight 05/17/2023 12 :45 PM EST Job Start Date Occupation Industry Not on file Not on file Not on file documented as of this encounter Miscellaneous Notes * Telephone Encounter - Joey Irving [facility] - 05/18/2023 8:27 AM EST Orders in TH 05/17 replacement AHP documented in this encounter Plan of Treatment Upcoming Encounters Date Type Department Care Team (Late st Contact Info) Description 05/18/2023 11:00 AM EST Office Visit Family Practice [facility] [address] [place] [address] Michi Moreno MD [address] [place] [address] Health Maintenance Due Date Last Done Comments COVID-19 Vaccine (#1) 1980 HIV Screening 02/28/1995 Diabetic Eye Exam 02/28/1998 Diabetic Foot Exam 02/28/1998 Hepatitis C Screening 02/28/1998 Pneumococcal Vaccine: Pediatrics (0 to 5 Years) and At-Risk Patients (6 to 64 Years) (2 - PCV) 12/06/2020 12/07/2019 Depression Screening 09/10/2021 09/10/2020 Influenza Vaccine (FLU shot) (#1) 2023 HbA1c 11/16/2023 05/17/2023, 0512/2021, 03/09/2021, Additional history exists Albumin/Creatinine Ratio 05/17/2024 05/17/2023 B-12 05/17/2024 05/17/2023, 08/29, 06/11/2019 GFR 05/17/2024 05/17/2023, 02/27, 12/07/2019, Additional history exists DTaP,Tdap,and Td Vaccines (4 - Td or Tdap) 03/07/2025 03/07/2015, 06/08/2014, 01/20/2000, Additional history exists Lipid Panel 05/17/2028 05/17/2023, 09/28, 09/02/2021, Additional history exists Hepatitis B Completed 11/16/1996, 04/29, 04/11/1996 GARDASIL-HPV IMMUNIZATION SERIES Aged Out No longer eligible based on patient's age to complete this topic MENINGOCOCCAL (MENACTRA/MENVEO) Aged Out No longer eligible based on patient's age to complete this topic documented as of this encounter Medical Devices Not on filedocumented as of this encounter Care Teams Substitute Crossing Guard Relationship Specialty Start Date End Date Michi Moreno MD [address] [facility] [place] [address] PCP - General Family Medicine 09/10/20 documented as of this encounter
--- OUTSIDE RECORDS SUMMARY | 2023-07-14 09:42 | External Medical Summary ---
Author Name Unknown Address Unknown Organization [id number]:[facility] - [address] [place] [address] Laboratory Report Ordering Provider Test Date Status FRANCA GARLAND 05/17/2023 09:04:56 Final Observation Date Value Abnormality Reference (Units ) Status Vitamin B12 05/17/2023 09:04:56 [phone] (pg/mL) Final Performing Location [facility] - [address] [place] [address]
--- OUTSIDE RECORDS SUMMARY | 2023-07-14 09:42 | External Medical Summary | Summary of Care ---
Author Name Unknown Organization [facility] Address [address] [facility] [place] [address] Phone [phone] Care Team Providers Care Aboriginal Liaison Officer Name Role Phone Michi Moreno MD Primary Care Provider [phone] [phone] Encounter Details Date Type Department Care Team (Late st Contact Info) Description 07/08/2023 Orders Only PATIENT PORTAL DO NOT DELETE THIS DEPT USED BY [place] [address] Allergies Active Allergy Reactions Criticality Noted Date Comments Ivp Dye Nausea/vomiting Medium 12/13/2006 Nausea and vomiting on administration IV dye for CT scan of abdomen documented as of this encounter (statuses as of 07/08/2023) Medications Medication Sig Dispensed Refills Start Date [...] BY MOUTH IN THE MORNING 90 Tablet 1 05/18/2023 Active Jardiance 25 MG Oral Tablet (Empagliflozin) TAKE 1 TABLET BY MOUTH IN THE MORNING 90 Tablet 1 05/18/2023 Active Losartan Potassium-HCTZ 100-25 MG Oral Tablet (Hyzaar)Indication s:HTN, goal below 140/90 TAKE 1 TABLET BY MOUTH ONCE DAILY . APPOINTMENT REQUIRED FOR FUTURE REFILLS 90 Tablet 3 07/06/2023 Active Trulicity 0.75 MG/0.5ML Subcutaneous Solution Pen-injector (Dulaglutide)Indic ations:Type 2 diabetes mellitus with hemoglobin A1c goal of less than 7.0% (HCC),Super obese INJECT 1 SUBCUTANEOUSLY ONCE A WEEK 4 mL 0 07/07/2023 Active documented as of this encounter (statuses as of 07/08/2023) Active Problems Problem Noted Date Diagnosed Date HTN, goal below 130/80 03/03/2021 Type 2 diabetes mellitus wit h hemoglobin A1c goal of less than 7.0% 09/05/2020 Dyslipidemia 09/05/2020 KELLIE on CPAP 05/16/2019 Periodic limb movement disorder (PLMD) 9 Super obese 11/11/2009 Overview: Per Obesity Protocol, #19 ICD-10 update of inactive term documented as of this encounter (statuses as of 07/08/2023) Resolved Problems Problem Noted Date Diagnosed Date [...] as of this encounter (statuses as of 07/08/2023) Immunizations Name Administration Dates Next Due Pneumococcal [...] on file documented as of this encounter Plan of Treatment Upcoming Encounters Date Type Department Care Team (Late st Contact Info) Description 10/25/2023 10:40 AM EDT Office Visit [facility] [address] [place] [address] Simona Lopez DO [address] [place] [address] 05/21/2024 10:40 AM EST Office Visit Family Practice [facility] [address] [place] [address] Michi Moreno MD [address] [place] [address] Health Maintenance Due Date Last Done Comments COVID-19 Vaccine (#1) 1980 HIV Screening 02/28/1995 Diabetic Eye Exam 02/28/1998 Diabetic Foot Exam 02/28/1998 Hepatitis C Screening 02/28/1998 Pneumococcal Vaccine: Pediatrics (0 to 5 Years) and At-Risk Patients (6 to 64 Years) (2 - PCV) 12/06/2020 12/07/2019 Depression Screening 09/10/2021 09/10/2020 Influenza Vaccine (FLU shot) (#1) 2023 HbA1c 11/16/2023 05/17/2023, 05/12/2021, 03/09/2021, Additional history exists Albumin/Creatinine Ratio 05/17/2024 [...] filedocumented as of this encounter Care Teams Aboriginal Liaison Officer Relationship Specialty Start Date End Date Michi Moreno MD [address] [place] [address] PCP - General Family Medicine 09/10/20 documented as of this encounter
--- OUTSIDE RECORDS SUMMARY | 2023-07-14 09:42 | External Medical Summary ---
Author Name Unknown Address Unknown Organization K01:[facility] [address] [place] [address] Laboratory Report Ordering Provider Test Date Status FRANCA GARLAND 05/17/2023 09:07:46 Final Normal: <30 mg/g creatinine< br/>High: 30-300 mg/g creatinine
Very High: >300 mg/g creatinine
Nephrotic: >2200 mg/g creatinine Observation Date Value Abnormality Reference (Units ) Status Albumin, Urine 05/17/2023 09:07:46 2.08 (mg/dL) Final Creatinine, Urine 05/17/2023 09:07:46 31 (mg/dL) Final Albumin/Creatinine [Mass Ratio] in Urine 05/17/2023 09:07:46 67 Above high normal <30 (mg/g Creat) Final Performing Location [facility] [place] [address] [place] [address]
--- OUTSIDE RECORDS SUMMARY | 2023-07-14 09:42 | External Medical Summary | Summary of Care ---
Author Name Unknown Organization [facility] Address [address] [place] [place] [address] Phone [phone] Care Team Providers Care Cosmetic Sales Advisor Name Role Phone Kezia Elmore MD Primary Care Provider +1 [phone] Reason for Visit * Reason Comments eRx-Medication Refill Encounter Details Date Type Department Care Team (Late st Contact Info) Description 06/13/2023 Refill Family Practice [facility] [address] [place] [id number] Kezia Elmore MD [address] [place] [address] Type 2 diabetes mellitus with hemoglobin A1c goal of less than 7.0% ([facility]); Super obese Allergies Active Allergy Reactions Criticality Noted Date Comments Ivp Dye Nausea/vomiting Medium 12/13/2006 Nausea and vomiting on administration IV dye for CT scan of abdomen documented as of this encounter (statuses as of 06/14/2023) Medications Medication Sig Dispensed Refills Start Date End Date Status Multiple Vitamins-Iron (MULTI-DAY PLUS IRON) TABS Take 1 Tab by mouth daily. 0 Active metFORMIN HCl ER 500 MG Oral Tablet Extended Release 24 Hour (Glucophage XR) TAKE 4 TABLETS BY MOUTH ONCE DAILY WITH A MEAL 360 Tablet 0 2 Active Methocarbamol 500 MG Oral Tablet (Robamol) TAKE 1 TABLET BY MOUTH 4 TIMES DAILY FOR MUSCLE SPASM 30 Tablet 1 2 Active Losartan Potassium-HCTZ 100-25 MG Oral Tablet (Hyzaar)Indicati ons:HTN, goal below 140/90 Take 1 tablet by mouth once daily 30 Tablet 0 3 Active Fenofibrate 145 MG Oral Tablet (Tricor) TAKE 1 TABLET BY MOUTH IN THE MORNING 90 Tablet 1 3 Active Jardiance 25 MG Oral Tablet (Empagliflozin) TAKE 1 TABLET BY MOUTH IN THE MORNING 90 Tablet 1 3 Active Ozempic (0.25 or 0.5 MG/DOSE) 2 MG/1.5ML Solution Pen-injector (Semaglutide(0.2 5 or 0.5MG/DOS)) Inject 0.25 mg under the skin once a week. 1.5 mL 0 3 Active Trulicity 0.75 MG/0.5ML Subcutaneous Solution Pen-injector (Dulaglutide)Ind ications:Type 2 diabetes mellitus with hemoglobin A1c goal of less than 7.0% (HCC),Super obese INJECT 1 SYRINGE SUBCUTANEOUSLY ONCE A WEEK 4 mL 0 4 Active Dulaglutide 0.75 MG/0.5ML Subcutaneous Solution Pen-injector (Trulicity)Indic ations:Type 2 diabetes mellitus with hemoglobin A1c goal of less than 7.0% (HCC),Super obese Inject 0.75 mg under the skin once a week. 2 mL 0 3 06/14/19 24 Discontinued documented as of this encounter (statuses as of 06/14/2023) Active Problems Problem Noted Date Diagnosed Date HTN, goal below 130/80 03/03/2021 Type 2 diabetes mellitus wit h hemoglobin A1c goal of less than 7.0% 09/05/2020 Dyslipidemia 09/05/2020 KELLIE on CPAP 05/16/2019 Periodic limb movement disorder (PLMD) 9 Super obese 11/11/2009 Overview: Per Obesity Protocol, #19 ICD-10 update of inactive term documented as of this encounter (statuses as of 06/14/2023) Resolved Problems Problem Noted Date Diagnosed Date [...] as of this encounter (statuses as of 06/14/2023) Immunizations Name Administration Dates Next Due Pneumococcal [...] Telephone Encounter - Kezia Elmore MD - 06/14/2023 10:00 AM ESTSigned Prescriptions: Disp Refills Trulicity 0.75 MG/0.5ML Subcutaneous Solut*4 mL 0 Sig: INJECT 1 SYRINGE SUBCUTANEOUSLY ONCE A WEEK Authorizing Provider: KEZIA ELMORE * Telephone Encounter - Matt Cai RP - 06/14/2023 9:51 AM ESTPending Prescriptions: Disp Refills Trulicity 0.75 MG/0.5ML Subcutaneous Solut*4 mL 0 Sig: INJECT 1 SYRINGE SUBCUTANEOUSLY ONCE A WEEK * Telephone Encounter - Matt Cai RP - 06/14/2023 9:50 AM EST Unable to authorize medication refills for pended medication(s) at this time. Part of the protocol criteria used for refill authorization was not satisfied. Patient's A1C is above protocol parameters. Please approve if appropriate. Thanks, Richmond Cai, PharmD Clinical Pharmacist Centralized Clinical Pharmacy Services (CCPS) (Formerly Telepharmacy) [phone] 06/14/2023 9:50 AM documented in this encounter Plan of Treatment Upcoming Encounters Date Type Department Care Team (Late st Contact Info) Description 05/21/2024 10:40 AM EST Office Visit Family [facility] [address] [place] [address] Kezia Elmore MD [address] [place] [address] Health Maintenance Due Date Last Done Comments [...] as of this encounter Visit Diagnoses Diagnosis Type 2 diabetes mellitus with hemoglobin A1c goal of less than 7.0% (HCC) Super obese Morbid obesity documented in this encounter Care Teams Cosmetic Sales Advisor Relationship Specialty Start Date End Date Kezia Elmore MD [address] [place] [address] PCP - General Family Medicine 09/10/20 documented as of this encounter
--- OUTSIDE RECORDS SUMMARY | 2023-07-14 09:42 | External Medical Summary | Summary of Care ---
Author Name Unknown Organization [facility] Address [address] [place] [address] Phone [phone] Care Team Providers Care Lie Detector Operator Name Role Phone Michi Moreno MD Primary Care Provider [phone] [phone] Reason for Visit * Reason Comments Outpatient Testing Encounter Details Date Type Department Care Team (Late st Contact Info) Description 05/17/2023 9:20 AM EST Laboratory Laboratory, [facility] [address] [place] [address] [facility] [address] [place] [address] Dyslipidemia; Type 2 diabetes mellitus with hemoglobin A1c goal of less than 7.0% ([facility]); [employer] Other*[id number]; Encounter for long-term (current) use of medications Allergies Active Allergy Reactions Criticality Noted Date [...] 05/17/2023) Immunizations Name Administration Dates Next Due Hepatitis B Vaccine 11/16/1996,05/16/1996,1995 MMR - Measles/Mumps/Rubella Vaccine 02/27/1992 Pneumococcal Polysaccharide PPV23 (Pneumovax) 12/07/2019 TD - Tetanus/Diptheria (ADULT) 01/20/2000,1992 TDAP (age 10 and older)(Boostrix) 03/07/2015,02/2015 documented [...] Information Value Date Recorded Sex Assigned at Not on file Gender Identity Not on file Sexual Orientation Not on file Job Start Date Occupation Industry Not on file Not on file Not on file documented as of this encounter Plan of Treatment Upcoming Encounters Date Type Department Care Team (Late st Contact Info) Description 05/17/2023 10:20 AM EST Telemedicine Sleep Disorders Ctr [facility] [address] [id number] Simona Lopez DO [address] [address] 05/18/2023 11:00 AM EST Office Visit Family Practice [facility] [address] [address] Michi Moreno MD [address] [place] [address] Pending Results Name Type Priority Associated Diagnoses Date /Time LIPID PANEL WITH DIRECT LDL IF TG IS HIGH Lab Routine Dyslipidemia 05/17/2023 9:04 AM EST HEMOGLOBIN A1C Lab Routine Type 2 diabetes mellitus with hemoglobin A1c goal of less than 7.0% (HCC) 05/17/2023 9:04 AM EST MYCODE SUBSEQUENT ADULT Lab Routine [employer] Other*[id number] 05/17/2023 9:04 AM EST VITAMIN B12 Lab Routine Encounter for long-term (current) use of medications 05/17/2023 9:04 AM EST COMPREHENSIVE METABOLIC PANEL Lab Routine Encounter for long-term (current) use of medications 05/17/2023 9:04 AM EST MYCODE SST1 Lab Routine [employer] Other*[id number] 05/17/2023 9:04 AM EST MYCODE SST2 Lab Routine [employer] Other*[id number] 05/17/2023 9:04 AM EST ALBUMIN / CREATININE RATIO, URINE Lab Routine Encounter for long-term (current) use of medications 05/17/2023 9:07 AM EST Health Maintenance Due Date Last Done Comments COVID-19 Vaccine (#1) 1980 HIV Screening 02/28/1995 Albumin/Creatinine Ratio 02/28/1998 Diabetic Eye Exam 02/28/1998 Diabetic Foot Exam 02/28/1998 Hepatitis C Screening 02/28/1998 Pneumococcal Vaccine: Pediatrics (0 to 5 Years) and At-Risk Patients (6 to 64 Years) (2 - PCV) 12/06/2020 12/07/2019 Depression Screening 09/10/2021 09/10/2020 B-12 09/17/2021 09/17/2020, 06/11/2019 GFR 03/09/2022 03/09/2021, 11/27, 11/27/2018, Additional history exists HbA1c 04/26/2022 10/24/2021, 02/27, 09/17/2020, Additional history exists Influenza Vaccine (FLU shot) (#1) 2023 DTaP,Tdap,and Td Vaccines (4 - Td or Tdap) 03/07/2025 03/07/2015, 06/08/2014, 01/20/2000, Additional history exists Lipid Panel 10/24/2026 10/24/2021, 040 10/2021, 12/07/2019, Additional history exists Hepatitis B Completed 11/16/1996, 04/29, 04/11/1996 GARDASIL-HPV IMMUNIZATION SERIES Aged Out No longer eligible based on patient's age to complete this topic MENINGOCOCCAL (MENACTRA/MENVEO) Aged Out No longer eligible based on patient's age to complete this topic documented as of this encounter Medical Devices Not on filedocumented as of this encounter Visit Diagnoses Diagnosis Dyslipidemia Other and unspecified hyperlipidemia Type 2 diabetes mellitus with hemoglobin A1c goal of less than 7.0% ([facility]) [employer] Other*[id number] Encounter for long-term (current) use of medications Encounter for long-term (current) use of other medications documented in this encounter Care Teams Lie Detector Operator Relationship Specialty Start Date End Date Michi Moreno MD [address] [place] [address] PCP - General Family Medicine 09/10/20 documented as of this encounter
--- OUTSIDE RECORDS SUMMARY | 2023-07-14 09:42 | External Medical Summary ---
Author Name Unknown Address Unknown Organization [id number]:LABORATORY [facility] [facility] - [address] [facility] [address] Laboratory Report Ordering Provider Test Date Status DEMAR SAAB 05/17/2023 09:04:56 Final Observation Date Value Abnormality Reference (Units ) Status MYCODE SPECIMEN-SST 05/17/2023 09:04:56 Freezing of extracted DNA, whole blood and/or serum. Final Performing Location LABORATORY [facility] - [address] [facility] [address]
--- OUTSIDE RECORDS SUMMARY | 2023-07-14 09:42 | External Medical Summary | Summary of Care ---
Author Name Unknown Organization [facility] Address [address] [place] [facility] [address] Phone [phone] Care Team Providers Care Customer Service Manager Name Role Phone Kezia Elmore MD Primary Care Provider [phone] [phone] Reason for Visit * Reason Comments eRx-Medication Refill Encounter Details Date Type Department Care Team (Late st Contact Info) Description 05/18/2023 Refill Family Practice [facility] [address] [place] [address] Kezia Elmore MD [address] [place] [address] Allergies Active Allergy Reactions Criticality Noted Date [...] MUSCLE SPASM 30 Tablet 1 10/09/2021 Active Losartan Potassium-HCTZ 100-25 MG Oral Tablet (Hyzaar)Indicatio ns:HTN, goal below 140/90 Take 1 tablet by mouth once daily 30 Tablet 0 04/11/2023 Active Fenofibrate 145 MG Oral Tablet (Tricor) TAKE 1 TABLET BY MOUTH IN THE MORNING 90 Tablet 1 05/18/2023 Active Jardiance 25 MG Oral Tablet (Empagliflozin) TAKE 1 TABLET BY MOUTH IN THE MORNING 90 Tablet 1 05/18/2023 Active Ozempic (0.25 or 0.5 MG/DOSE) 2 MG/1.5ML Solution Pen-injector (Semaglutide(0.25 or 0.5MG/DOS)) Inject 0.25 mg under the skin once a week. 1.5 mL 0 05/18/2023 Active Fenofibrate 145 MG Oral Tablet (Tricor) TAKE 1 TABLET BY MOUTH IN THE MORNING 90 Tablet 0 12/02/2022 05/18/2023 Discontinued Jardiance 25 MG Oral Tablet (Empagliflozin) TAKE 1 TABLET BY MOUTH IN THE MORNING 90 Tablet 0 12/02/2022 05/18/2023 Discontinued documented as of this encounter (statuses [...] encounter Miscellaneous Notes * Telephone Encounter - Mecca Velazquez [facility] - 05/18/2023 2:28 PM ESTSigned Prescriptions: Disp Refills Fenofibrate 145 MG Oral Tablet (Tricor) 90 Tab*1 Sig: TAKE 1 TABLET BY MOUTH IN THE MORNINGAuthorizing Provider: KEZIA ELMORE User: MECCA VELAZQUEZ Jardiance 25 MG Oral Tablet (Empagliflozin)90 Tab*1 Sig: TAKE 1 TABLET BY MOUTH IN THE MORNINGAuthorizing Provider: KEZIA ELMORE User: MECCA VELAZQUEZ documented in this encounter Plan of Treatment Upcoming Encounters Date Type Department Care Team (Late st Contact Info) Description 05/21/2024 10:40 AM EST Office Visit Family [facility] [address] [address] Kezia Elmore MD [address] [place] [address] Health Maintenance Due Date Last Done Comments [...] filedocumented as of this encounter Care Teams Customer Service Manager Relationship Specialty Start Date End Date Kezia Elmore MD [address] [address] PCP - General Family Medicine 09/10/20 documented as of this encounter
--- OUTSIDE RECORDS SUMMARY | 2023-07-14 09:42 | External Medical Summary ---
Author Name Unknown Address Unknown Organization K0G:[facility] - [address] [place] [address] Laboratory Report Ordering Provider Test Date Status FRANCA GARLAND 05/17/2023 09:04:56 Final Observation Date Value Abnormality Reference (Units ) Status BUN 05/17/2023 09:04:56 11 6-20 (mg/dL) Final Creatinine 05/17/2023 09:04:56 0.7 0.6-1.2 (mg/dL) Final Glomerular filtration rate/1.73 sq M.predicted [Volume Rate/Area] in Serum, Plasma or Blood by Creatinine-based formula (CKD-EPI) 05/17/2023 09:04:56 >90 >=60 (mL/min) Final eGFR is calculated based on the CKD-EPI 2020 equation SODIUM 05/17/2023 09:04:56 139 135-146 (m mol/L) Final Potassium 05/17/2023 09:04:56 4.2 3.5-5.1 (m mol/L) Final Cl 05/17/2023 09:04:56 100 98-107 (mm ol/L) Final CO2 05/17/2023 09:04:56 26 22-32 (mmo l/L) Final Anion gap 05/17/2023 09:04:56 13 7-15 (mmol /L) Final Glucose 05/17/2023 09:04:56 238 Above high normal 70 -120 (mg/dL) Final Albumin 05/17/2023 09:04:56 4.2 3.8-5.0 (g /dL) Final AST (Aspartate aminotransferase) 05/17/2023 09:04:56 25 10-50 (U/L) Fin al Result may be falsely elevat ed due to hemolysis. Alk Phos 05/17/2023 09:04:56 71 35-130 (U/ L) Final Bilirubin, Total 05/17/2023 09:04:56 0.3 <=1 .2 (mg/dL) Final Calcium 05/17/2023 09:04:56 10.1 8.4-10.2 ( mg/dL) Final Protein 05/17/2023 09:04:56 7.4 6.0-8.3 (g /dL) Final ALT (Alanine aminotransferase) 05/17/2023 09:04:56 42 10-50 (U/L) Final Performing Location [facility] [address] [place] [address]
--- OUTSIDE RECORDS SUMMARY | 2023-07-14 09:42 | External Medical Summary | Summary of Care ---
Author Name Unknown Organization [facility] Address [address] [address] Phone [phone] Care Team Providers Care Assistant Professor Of Chemistry Name Role Phone Kezia Elmore MD Primary Care Provider [phone] [phone] Reason for Visit * Reason Comments eRx-Medication Refill Encounter Details Date Type Department Care Team (Late st Contact Info) Description 04/10/2023 Refill Family Practice [facility] [address] [place] [address] Kezia Elmore MD [address] [place] [address] HTN, goal below 140/90 Allergies Active Allergy Reactions Criticality Noted Date Comments Ivp Dye Nausea/vomiting Medium 12/13/2006 Nausea and vomiting on administration IV dye for CT scan of abdomen documented as of this encounter (statuses as of 04/11/2023) Medications Medication Sig Dispensed Refills Start Date [...] as of this encounter (statuses as of 04/11/2023) Active Problems Problem Noted Date Diagnosed Date HTN, goal below 130/80 03/03/2021 Type 2 diabetes mellitus wit h hemoglobin A1c goal of less than 7.0% 09/05/2020 Dyslipidemia 09/05/2020 KELLIE on CPAP 05/16/2019 Periodic limb movement disorder (PLMD) 9 Body mass index (BMI) of 50.0 to 59.9 in adult 0 12/04/2018 Overview: Per Obesity protocol - Per Obesity Protocol, #19 ICD-10 update of inactive term documented as of this encounter (statuses as of 04/11/2023) Resolved Problems Problem Noted Date Diagnosed Date Resolved Date Hypersomnolence 05/16/2019 09/05/2020 Chronic rhinitis 02/06/2013 09/05/2020 Obesity, morbid (more than 1 00 lbs over ideal weight or BMI > 40) 11/11/2009 12/07/2018 Overview: Per Obesity Protocol, #19 ICD-10 update of inactive term Sprain of ankle 04/28/2009 11/08/2018 ADVANCE DIRECTIVE INFORMATION 12/28/2004 04/16/2020 Overview: No, Advance Directive brochure offered , patient declined. documented as of this encounter (statuses as of 04/11/2023) Immunizations Name Administration Dates Next Due Pneumococcal [...] KEZIA ELMORE * Telephone Encounter - Tanner Jensen [facility] - 04/11/2023 12:40 PM ESTPending Prescriptions: Disp Refills Losartan Potassium-HCTZ 100-25 MG Oral Tab*30 Tab*0 Sig: Take 1 tablet by mouth once daily * Telephone Encounter - Tanner Jensen [facility] - 04/11/2023 12:39 PM EST Multiple attempts Unable to authorize medication refills for pended medication(s) at this time. Part of the protocol criteria used for refill authorization was not satisfied. Patient needs CMP and office visit within the past year. Please approve if appropriate. Thank You, Tanner Johnson [facility] Clinical Pharmacist [facility] Pharmacy Services (CCPS) (formerly Telepharmacy) 04/11/2023, 12:39 PM * Telephone Encounter - Tanner Jensen [facility] - 04/11/2023 12:39 PM EST Pending Prescriptions: [...] was ordered: 03/17/23 Pharmacy: [facility] [address] [place] [address] Is this request for a controlled substance? [...] documented in this encounter Plan of Treatment Health Maintenance Due Date Last Done Comments [...] Additional history exists Lipid Panel 10/24/2026 10/24/2021, 04/10/2021, 12/07/2019, Additional history exists Hepatitis B Completed [...] hypertension documented in this encounter Care Teams Assistant Professor Of Chemistry Relationship Specialty Start Date End Date Kezia Elmore MD [address] [place] [address] PCP - General Family Medicine 09/10/20 documented as of this encounter
--- OUTSIDE RECORDS SUMMARY | 2023-07-14 09:42 | External Medical Summary ---
Author Name Unknown Address Unknown Organization K01:LAB[facility]ATORY [facility] [place] [place] - [address] [facility] [address] Laboratory Report Ordering Provider Test Date Status GABBI SHOOK 05/17/2023 09:04:56 Final Observation Date Value Abnormality Reference (Units ) Status HbA1C 05/17/2023 09:04:56 10.2 Above high normal 4. 0-5.6 (%) Final The use of HbA1c to monitor glycemic status is based on normal hemoglobin and HbA composition. This test should not be used in patients with abnormal hemoglobin that affects the half life of the red blood cell or the in vivo glycation rates. Glucose, estimated average 05/17/2023 09:04:56 246 Above high normal <126 (mg/dL) Jean Carlos pulliam Performing Location LAB[facility]ORY [facility] [place] [place] - [address] [facility] [address]
--- OUTSIDE RECORDS SUMMARY | 2023-07-14 09:42 | External Medical Summary | Summary of Care ---
Author Name Unknown Organization [facility] Address [address] [place] [address] Phone [phone] Care Team Providers Care Shirt Folding Machine Operator Name Role Phone Michi Moreno MD Primary Care Provider [phone] Reason for Visit * Reason Onset Date Comments [email or web address] Encounter Details Date Type Department Care Team (Late st Contact Info) Description 06/14/2023 Telephone Family Practice [facility] [address] [place] [address] Michi Moreno MD [address] [place] [phone] Fax ([facility]) Allergies Active Allergy Reactions Criticality Noted Date Comments Ivp Dye Nausea/vomiting Medium 12/13/2006 Nausea and vomiting on administration IV dye for CT scan of abdomen documented as of this encounter (statuses as of 06/17/2023) Medications Medication Sig Dispensed Refills Start Date [...] Oral Tablet (Hyzaar)Indication s:HTN, goal below 140/90 Take 1 tablet by [...] a week. 1.5 mL 0 05/18/2023 Active Trulicity 0.75 MG/0.5ML Subcutaneous Solution Pen-injector (Dulaglutide)Indic ations:Type 2 diabetes mellitus with hemoglobin A1c goal of less than 7.0% (HCC),Super obese INJECT 1 SYRINGE SUBCUTANEOUSLY ONCE A WEEK 4 mL 0 06/14/2023 Active documented as of this encounter (statuses as of 06/17/2023) Active Problems Problem Noted Date Diagnosed Date HTN, goal below 130/80 03/03/2021 Type 2 diabetes mellitus wit h hemoglobin A1c goal of less than 7.0% 09/05/2020 Dyslipidemia 09/05/2020 KELLIE on CPAP 05/16/2019 Periodic limb movement disorder (PLMD) 9 Super obese 11/11/2009 Overview: Per Obesity Protocol, #19 ICD-10 update of inactive term documented as of this encounter (statuses as of 06/17/2023) Resolved Problems Problem Noted Date Diagnosed Date [...] as of this encounter (statuses as of 06/17/2023) Immunizations Name Administration Dates Next Due Pneumococcal [...] encounter Miscellaneous Notes * Telephone Encounter - Zakia Harrison LPN - 06/17/2023 1:41 PM EST Order has been faxed to [facility]. [facility] site order was sent in Apr and fullfilled 05/27/23 * Telephone Encounter - Simona Lopez DO - 06/14/2023 12:51 PM EST Please address May need to call DME or resend order * Telephone Encounter - Chloe Waters OSA - 06/14/2023 10:23 AM EST Received a call asking if fax was received by office. Name/Company sending fax: [facility] What fax is pertaining to: prescription for a new cpap machine Date(s) they sent request: 06/09/23 Verified fax number they are sending to is correct (Y or N): Yes Callback Number for the clinic to call to verified if fax was received: [phone]/ fax [phone] documented in this encounter Plan of Treatment Upcoming Encounters Date Type Department Care Team (Late st Contact Info) Description 05/21/2024 10:40 AM EST Office Visit [facility] [address] [place] [address] Michi Moreno MD [address] [place] [address] Health Maintenance Due Date Last Done Comments [...] filedocumented as of this encounter Care Teams Shirt Folding Machine Operator Relationship Specialty Start Date End Date Michi Moreno MD [address] [address] PCP - General Family Medicine 09/10/20 documented as of this encounter
--- OUTSIDE RECORDS SUMMARY | 2023-07-14 09:42 | External Medical Summary ---
Author Name Unknown Address Unknown Organization K01:LABORATORY [facility] [place] - [address] [place] [address] Laboratory Report Ordering Provider Test Date Status GABBI SHOOK 05/17/2023 09:04:56 Final Observation Date Value Abnormality Reference (Units ) Status LDL, (direct) 05/17/2023 09:04:56 63 <=129 (mg/dL) Final LDL Cholesterol Reference Ra nges (mg/dL):
<70 Target level for high risk ASCVD patient
<100 Optimal for general population
100-129 Near optimal for general population
130-159 Borderline high
160-189 High
>=190 Very high Performing Location LABORATORY [facility] - [address] [place] [address]
--- OUTSIDE RECORDS SUMMARY | 2023-07-14 09:42 | External Medical Summary | Summary of Care ---
Author Name Unknown Organization [facility] Address [address] [place] [address] Phone [phone] Care Team Providers Care Lead Refinery Supervisor Name Role Phone Kezia Elmore MD Primary Care Provider [phone] [phone] Reason for Visit * Reason Comments eRx-Medication Refill Encounter Details Date Type Department Care Team (Late st Contact Info) Description 07/05/2023 Refill Family Practice [facility] [address] [place] [address] Kezia Elmore MD [address] [place] [address] HTN, goal below 140/90 Allergies Active Allergy Reactions Criticality Noted Date Comments Ivp Dye Nausea/vomiting Medium 12/13/2006 Nausea and vomiting on administration IV dye for CT scan of abdomen documented as of this encounter (statuses as of 07/06/2023) Medications Medication Sig Dispensed Refills Start Date [...] MUSCLE SPASM 30 Tablet 1 2 Active Fenofibrate 145 MG Oral Tablet (Tricor) [...] A WEEK 4 mL 0 4 Active Losartan Potassium-HCTZ 100-25 MG Oral Tablet (Hyzaar)Indicati ons:HTN, goal below 140/90 TAKE 1 TABLET BY MOUTH ONCE DAILY . APPOINTMENT REQUIRED FOR FUTURE REFILLS 90 Tablet 3 4 Active Losartan Potassium-HCTZ 100-25 MG Oral Tablet (Hyzaar)Indicati ons:HTN, goal below 140/90 Take 1 tablet by mouth once daily 30 Tablet 0 3 07/06/19 24 Discontinued documented as of this encounter (statuses as of 07/06/2023) Active Problems Problem Noted Date Diagnosed Date HTN, goal below 130/80 03/03/2021 Type 2 diabetes mellitus wit h hemoglobin A1c goal of less than 7.0% 09/05/2020 Dyslipidemia 09/05/2020 KELLIE on CPAP 05/16/2019 Periodic limb movement disorder (PLMD) 9 Super obese 11/11/2009 Overview: Per Obesity Protocol, #19 ICD-10 update of inactive term documented as of this encounter (statuses as of 07/06/2023) Resolved Problems Problem Noted Date Diagnosed Date [...] as of this encounter (statuses as of 07/06/2023) Immunizations Name Administration Dates Next Due Pneumococcal [...] encounter Miscellaneous Notes * Telephone Encounter - Autumn Fitzpatrick [facility] - 07/06/2023 8:50 AM ESTSigned Prescriptions: Disp Refills Losartan Potassium-HCTZ 100-25 MG Oral Tab*90 Tab*3 Sig: TAKE 1 TABLET BY MOUTH ONCE DAILY . APPOINTMENT REQUIRED FOR FUTURE REFILLSAuthorizing Provider: KEZIA ELMORE User: AUTUMN FITZPATRICK documented in this encounter Plan of Treatment Upcoming Encounters Date Type Department Care Team (Radha st Contact Info) Description 10/25/2023 10:40 AM EDT Office Visit Sleep Disorders Ctr [facility] [address] [place] [phone] Simona Lopez DO [address] [place] [address] 05/21/2024 10:40 AM EST Office Visit Family Practice [facility] [address] [place] [address] Kezia Elmore MD [address] [place] [address] Health Maintenance Due Date Last Done Comments [...] hypertension documented in this encounter Care Teams Lead Refinery Supervisor Relationship Specialty Start Date End Date Kezia Elmore MD [address] [place] [address] PCP - General Family Medicine 09/10/20 documented as of this encounter
--- OUTSIDE RECORDS SUMMARY | 2023-07-14 09:42 | External Medical Summary | Summary of Care ---
Author Name Unknown Organization [facility] Address [address] [place] [place] [place] [address] Phone [phone] Care Team Providers Care Die Maker Apprentice Name Role Phone Michi Moreno MD Primary Care Provider [phone] [phone] Encounter Details Date Type Department Care Team (Late st Contact Info) Description 05/17/2023 10:20 AM EST Telemedicine Sleep Disorders Ctr [facility] [address] [place] [place] [address] Simona Lopez DO [address] [place] [address] KELLIE (obstructive sleep apnea)* Allergies Active Allergy Reactions Criticality Noted Date [...] on file documented as of this encounter Progress Notes * Simona Lopez, DO - 05/17/2023 10:20 AM EST Sleep Medicine Follow-Up Clinic Note TELEMEDICINE ENCOUNTER Patient location: HOME. I was not in a hospital or clinic location. After connecting through [employer], patient was verified with two unique identifiers. Patient (or authorized legal players club representative) was then informed that this was a Telemedicine visit and being conducted confidentially over secure lines. Methods to assure confidentiality were taken. Patient acknowledged consent and understanding of privacy and security of the Telemedicine visit. The patient agreed to participate. HISTORY: Mr. Trsitian Butler is a 43 year old male w/ a pmh of DM and HTN who was followed-up with today regarding Obstructive Sleep Apnea. Mr. Butler is still awaiting his replacement CPAP. His current PAP is more than 5 years old, and he feels isn't functioning correctly. Denies significant leak, prolonged facial mercado from mask, aerophagia, dry eyes/nose/mouth, and feeling the pressure is too much or too little. Split Polysomnogram 02/13/16: BMI 53.42 AHI 136.4 (CMS/medicare criteria used) Min O2 78 % (95.5 mins less than 88%) PAP 4-14 cmH20 14 cmH20 5.8 AHI (with REM sleep obtained), <89% O2 4 min(s) Titration Polysomnogram 01/25/19: BMI 57.71 PAP 10-16 cmH20 16 cmH20 2.7 AHI (with REM sleep obtained) & <89% O2 0 min(s) PLMI 54.2 No questionnaires available. PAP Compliance: No current DL available Patient Active Problem List Diagnosis Code Super obese E66.9 KELLIE on CPAP G47.33 Periodic limb movement disorder (PLMD) G47.61 Type 2 diabetes mellitus with hemoglobin A1c goal of less than 7.0% (HCC) E11.9 Dyslipidemia E78.5 HTN, goal below 130/80 I10 No outpatient medications have been marked as taking for the 05/17/23 encounter (Appointment) with Simona Lopez DO. PHYSICAL EXAM: Unable to attain full exam due to nature of encounter Constitutional: Alert, oriented in no acute distress Skin: no markings on face where mask fits Chest: Normal respiratory effort at rest Neuro: Normal speech and comprehension Psych: Appropriate mood and affect ASSESSMENT/PLAN: Obstructive Sleep Apnea Encouraged continued use of PAP every night, all night and for naps. Order new PAP set from [id number] from [facility] Recommended routine cleaning and change of supplies as needed. Even a mild to moderate weight loss should result in significant improvement in the patients nocturnal respiratory events. Strenuous exercise, which activates the sympathetic nervous system (adrenaline system) not only helps with weight loss, glucose, and mood, but also improves sleep quality, and upper respiratory muscle tone during sleep. Avoid driving, operating heavy machinery or engaging in any activity that requires full alertness if feeling sleepy, drowsy or otherwise impaired. Follow-up with Sleep Medicine in d of staring PAP. Simona Lopez DO This visit was completed via real time teleheath video connection. All issues as above were discussed and addressed, and a limited physical exam was performed. If it was felt that the patient should be evaluated in clinic then they were directed there. The patient verbally consented to visit. I spent a total of 30-39 minutes (exact time 30 mins) on the date of service in preparation, delivery, and documentation of the care provided to Tristian Butler excluding any time spent in the performance of separately billed services. documented in this encounter Plan of Treatment Upcoming Encounters Date Type Department Care Team (Late st Contact Info) Description 05/18/2023 11:00 AM EST Office Visit [facility] [address] [address] Michi Moreno MD [address] [place] [address] Health Maintenance Due Date Last Done Comments COVID-19 Vaccine (#1) 1980 HIV Screening 02/28/1995 Albumin/Creatinine Ratio 02/28/1998 Diabetic Eye Exam 02/28/1998 Diabetic Foot Exam 02/28/1998 Hepatitis C Screening 02/28/1998 Pneumococcal Vaccine: Pediatrics (0 to 5 Years) and At-Risk Patients (6 to 64 Years) (2 - PCV) 12/06/2020 12/07/2019 Depression Screening 09/10/2021 09/10/2020 B-12 09/17/2021 09/17/2020, 06/11/2019 HbA1c 04/26/2022 10/24/2021, 02/27, 09/17/2020, Additional history exists Influenza Vaccine (FLU shot) (#1) 2023 GFR 05/17/2024 05/17/2023, 02/27, 12/07/2019, Additional history [...] as of this encounter Visit Diagnoses Diagnosis KELLIE (obstructive sleep apnea)- Primary Obstructive sleep apnea (adult) (pediatric) documented in this encounter Care Teams Die Maker Apprentice Relationship Specialty Start Date End Date Michi Moreno MD [address] [address] PCP - General Family Medicine 09/10/20 documented as of this encounter
--- OUTSIDE RECORDS SUMMARY | 2023-07-14 09:42 | External Medical Summary | Summary of Care ---
Author Name Unknown Organization [facility] Address [address] [place] [facility] [place] [address] Phone [phone] Care Team Providers Care Airport Clerk Name Role Phone Kezia Elmore MD Primary Care Provider [phone] Reason for Visit * Reason Onset Date Comments eRx-Medication Refill Left Message 03/16/2023 Encounter Details Date Type Department Care Team Description 03/16/2023 Refill Family Practice [facility] [address] [place] [address] Kezia Elmore MD [address] [place] [address] HTN, goal below 140/90 Allergies Active Allergy Reactions Severity Noted Date Comments Ivp Dye Nausea/vomiting Medium 12/13/2006 Nausea and vomiting on administration IV dye for CT scan of abdomen documented as of this encounter (statuses as of 03/17/2023) Medications Medication Sig Dispensed Refills Start Date [...] mouth once daily 30 Tablet 0 03/17/2023 Active Losartan Potassium-HCTZ 100-25 MG Oral Tablet (Hyzaar)Indicatio ns:HTN, goal below 140/90 Take 1 tablet by mouth once daily 30 Tablet 0 02/24/2023 03/17/2023 Discontinued documented as of this encounter (statuses as of 03/17/2023) Active Problems Problem Noted Date HTN, goal below 130/80 03/03/2021 Type 2 diabetes mellitus with hemoglobin A1c goal of less than 7.0% 09/05/2020 Dyslipidemia 09/05/2020 KELLIE on CPAP 05/16/2019 Periodic limb movement disorder (PLMD) 1 07/17/2018 Body mass index (BMI) of 50.0 to 59.9 in adult 12/04/2018 Overview: Per Obesity protocol - Per Obesity Protocol, #19 ICD-10 update of inactive term documented as of this encounter (statuses as of 03/17/2023) Resolved Problems Problem Noted Date Resolved Date Hypersomnolence 05/16/2019 09/05/2020 Chronic rhinitis 02/06/2013 09/05/2020 Obesity, morbid (more than 1 00 lbs over ideal weight or BMI > 40) 11/11/2009 12/07/2018 Overview: Per Obesity Protocol, #19 ICD-10 update of inactive term Sprain of ankle 04/28/2009 11/08/2018 ADVANCE DIRECTIVE INFORMATION 12/28/2004 Overview: No, Advance Directive brochure offered , patient declined. documented as of this encounter (statuses as of 03/17/2023) Immunizations Name Administration Dates Next Due Pneumococcal [...] once or twice a month if that Food Insecurity Answer Date Recorded Within the past 12 months, y ou worried that your food would run out before you got money to buy more. Never true 09/10/2020 Within the past 12 months, t he food you bought just didn't last and you didn't have money to get more. Never true 09/10/2020 Sex Assigned at Date Recorded Not on file Job Start Date Occupation Industry Not on file Not on file Not on file documented as of this encounter Miscellaneous Notes * Telephone Encounter - Kezia Elmore MD - 03/17/2023 11:02 AM EDTSigned Prescriptions: Disp Refills Losartan Potassium-HCTZ 100-25 MG Oral Tab*30 Tab*0 Sig: Take 1 tablet by mouth once daily Authorizing Provider: KEZIA ELMORE * Telephone Encounter - Teena Lynn CPhT - 03/17/2023 9:20 AM EDTPending Prescriptions: Disp Refills Losartan Potassium-HCTZ 100-25 MG Oral Tab*30 Tab*0 Sig: Take 1 tablet by mouth once daily * Telephone Encounter - Teena Lynn CPhT - 03/17/2023 9:20 AM EDT Received message from [facility] regarding patient needing appointment and labs. Placed call to patient toadvise. Left message on voicemail advising of required labs and to call back for an appointment. Thank you, Teena Lynn CPhT Pond Worker II [facility] ( [facility]) 03/17/2023,9:20 AM * Telephone Encounter - Slim Rice, [facility] - 03/17/2023 8:47 AM EDT Pending Prescriptions: Disp Refills Losartan Potassium-HCTZ 100-25 MG Oral Tab*30 Tab*0 Sig: Take 1 tablet by mouth once daily * Telephone Encounter - Slim Rice, [facility] - 03/17/2023 8:43 AM EDT Unable to authorize medication refills for pended medication(s) at this time. Part of the protocol criteria used for refill authorization was not satisfied. Per refill protocol patient should have ov and labs on file within past year. Reviewed AMP report, Care Gaps/Health Maintenance, medications list, and for any routine labs typically ordered for this patient. Lab orders placed. Please contact patient to schedule office visit with PRIMARY CARE and advise of labs ordered for blood draw AND URINE specimen (patient will have to be able to void to provide sample).. Recommend patient to fast if able for labs. Patient may still have water and regular medications. Advise to obtain labs before refills will be approved. Last Visit: 03/03/2021 (in office), Visit date not found (telemedicine) Next Visit: Visit date not found After contacting patient, please forward request to Kezia Elmore MD. Thank you, Jesus Van Hook, PharmD Clinical Pharmacist [facility] ([facility]) 03/17/23 8:46 AM [phone] documented in this encounter Plan of Treatment Health Maintenance Due Date Last Done Comments COVID-19 Vaccine (#1) 1980 HIV Screening 02/28/1995 Albumin/Creatinine Ratio 02/28/1998 DIABETES-EYE EXAM 02/28/1998 Diabetic Foot Exam 02/28/1998 Hepatitis C [...] hypertension documented in this encounter Care Teams Airport Clerk Relationship Specialty Start Date End Date Kezia Elmore MD [address] [place] [address] PCP - General Family Medicine 09/10/20 documented as of this encounter
--- OUTSIDE RECORDS SUMMARY | 2023-07-14 09:42 | External Medical Summary | Summary of Care ---
Author Name Unknown Organization [facility] Address [address] [place] [address] Phone [phone] Care Team Providers Care Ham Passer Name Role Phone Michi Moreno MD Primary Care Provider [phone] Reason for Visit * Reason Comments Outpatient Testing Encounter Details Date Type Department Care Team (Late st Contact Info) Description 05/17/2023 9:20 AM EST Laboratory Laboratory, [facility] [address] [facility] [address] [facility] [address] [place] [address] Dyslipidemia; Type 2 diabetes mellitus with hemoglobin A1c goal of less than 7.0% ([facility]); [employer] Other*[id number]; Encounter for long-term (current) use of medications [...] 10:20 AM EST Telemedicine Sleep Disorders Ctr [facility] [address] [phone] Simona Lopez DO [address] [address] 05/18/2023 11:00 AM EST Office Visit Family Practice [facility] [address] [address] Michi Moreno MD [address] [place] [address] Pending Results Name Type Priority Associated Diagnoses Date /Time LIPID PANEL WITH DIRECT LDL IF TG IS HIGH Lab Routine Dyslipidemia 05/17/2023 9:04 AM EST HEMOGLOBIN A1C Lab Routine Type 2 diabetes mellitus with hemoglobin A1c goal of less than 7.0% (HCC) 05/17/2023 9:04 AM EST MYCODE SUBSEQUENT ADULT Lab Routine [employer] Other*[id number] 05/17/2023 9:04 AM EST VITAMIN B12 Lab Routine Encounter for long-term (current) use of medications 05/17/2023 9:04 AM EST COMPREHENSIVE METABOLIC PANEL Lab Routine Encounter for long-term (current) use of medications 05/17/2023 9:04 AM EST MYCODE SST1 Lab Routine [employer] Other*[id number] 05/17/2023 9:04 AM EST MYCODE SST2 Lab Routine [employer] Other*[id number] 05/17/2023 9:04 AM EST ALBUMIN / CREATININE [...] hemoglobin A1c goal of less than 7.0% ([facility]) [employer] Other*[id number] Encounter for long-term (current) use of medications Encounter for long-term (current) use of other medications documented in this encounter Care Teams Ham Passer Relationship Specialty Start Date End Date Michi Moreno MD [address] [place] [address] PCP - General Family Medicine 09/10/20 documented as of this encounter
--- OUTSIDE RECORDS SUMMARY | 2023-07-14 09:42 | External Medical Summary | Summary of Care ---
Author Name Unknown Organization [facility] Address [address] [facility] [address] Phone [phone] Care Team Providers Care Sonography Technologist Name Role Phone Kezia Elmore MD Primary Care Provider [phone] Reason for Visit * Reason Comments eRx-Medication Refill Encounter Details Date Type Department Care Team (Late st Contact Info) Description 07/06/2023 Refill Family Practice [facility] [address] [place] [address] Kezia Elmore MD [address] [place] [address] Encounter for long-term (current) use of medications*; Type 2 diabetes mellitus with hemoglobin A1c goal of less than 7.0% ([facility]); Super obese Allergies Active Allergy Reactions Criticality Noted Date Comments Ivp Dye Nausea/vomiting Medium 12/13/2006 Nausea and vomiting on administration IV dye for CT scan of abdomen documented as of this encounter (statuses as of 07/07/2023) Medications Medication Sig Dispensed Refills Start Date End Date Status Multiple Vitamins-Iron (MULTI-DAY PLUS IRON) TABS Take 1 Tab by mouth daily. 0 Active metFORMIN HCl ER 500 MG Oral Tablet Extended Release 24 Hour (Glucophage XR) TAKE 4 TABLETS BY MOUTH ONCE DAILY WITH A MEAL 360 Tablet 0 10/10/19 22 Active Methocarbamol 500 MG Oral Tablet (Robamol) TAKE 1 TABLET BY MOUTH 4 TIMES DAILY FOR MUSCLE SPASM 30 Tablet 1 10/10/19 22 Active Fenofibrate 145 MG Oral Tablet (Tricor) TAKE 1 TABLET BY MOUTH IN THE MORNING 90 Tablet 1 05/18/20 23 Active Jardiance 25 MG Oral Tablet (Empagliflozin) TAKE 1 TABLET BY MOUTH IN THE MORNING 90 Tablet 1 05/18/20 23 Active Losartan Potassium-HCTZ 100-25 MG Oral Tablet (Hyzaar)Indicati ons:HTN, goal below 140/90 TAKE 1 TABLET BY MOUTH ONCE DAILY . APPOINTMENT REQUIRED FOR FUTURE REFILLS 90 Tablet 3 07/06/19 24 Active Trulicity 0.75 MG/0.5ML Subcutaneous Solution Pen-injector (Dulaglutide)Ind ications:Type 2 diabetes mellitus with hemoglobin A1c goal of less than 7.0% (HCC),Super obese INJECT 1 SUBCUTANEOUSLY ONCE A WEEK 4 mL 0 07/07/19 24 Active Ozempic (0.25 or 0.5 MG/DOSE) 2 MG/1.5ML Solution Pen-injector (Semaglutide(0.2 5 or 0.5MG/DOS)) Inject 0.25 mg under the skin once a week. 1.5 mL 0 05/18/20 23 024 Discontinued(Wi dication List Clean Up) Trulicity 0.75 MG/0.5ML Subcutaneous Solution Pen-injector (Dulaglutide)Ind ications:Type 2 diabetes mellitus with hemoglobin A1c goal of less than 7.0% (HCC),Super obese INJECT 1 SYRINGE SUBCUTANEOUSLY ONCE A WEEK 4 mL 0 06/14/19 24 024 Discontinued documented as of this encounter (statuses as of 07/07/2023) Active Problems Problem Noted Date Diagnosed Date HTN, goal below 130/80 03/03/2021 Type 2 diabetes mellitus wit h hemoglobin A1c goal of less than 7.0% 09/05/2020 Dyslipidemia 09/05/2020 KELLIE on CPAP 05/16/2019 Periodic limb movement disorder (PLMD) 9 Super obese 11/11/2009 Overview: Per Obesity Protocol, #19 ICD-10 update of inactive term documented as of this encounter (statuses as of 07/07/2023) Resolved Problems Problem Noted Date Diagnosed Date [...] as of this encounter (statuses as of 07/07/2023) Immunizations Name Administration Dates Next Due Pneumococcal [...] encounter Miscellaneous Notes * Telephone Encounter - Kerline Lawrence RPh - 07/07/2023 11:30 AM ESTSigned Prescriptions: Disp Refills Trulicity 0.75 MG/0.5ML Subcutaneous Solut*4 mL 0 Sig: INJECT 1 SUBCUTANEOUSLY ONCE A WEEKAuthorizing Provider: KEZIA ELMORE User: KERLINE LAWRENCE------ * Telephone Encounter - Kerline Lawrence RPh - 07/07/2023 11:13 AM EST RX authorized. Zero refills given. Patient should have repeat A1C after starting Trulicity. Thanks, Kerline Lawrence PharmD Clinical Pharmacist [facility] ([facility]) [phone] 07/07/2023, 11:30 AM documented in this encounter Plan of Treatment Upcoming Encounters Date Type Department Care Team (Late st Contact Info) Description 10/25/2023 10:40 AM EDT Office Visit Sleep Disorders Ctr [facility] [address] [phone] Simona Lopez DO [address] [address] 05/21/2024 10:40 AM EST Office Visit Family Practice [facility] [address] [address] Kezia Elmore MD [address] [place] [address] Scheduled Orders Name Type Priority Associated Diagnoses Orde r Schedule HEMOGLOBIN A1C Lab Routine Encounter for long-term (current) use of medications Expected: 07/14/2023 (Approximate), Expires: 07/07/2024 Health Maintenance Due Date Last Done Comments [...] as of this encounter Visit Diagnoses Diagnosis Encounter for long-term (current) use of medications- Primary Encounter for long-term (current) use of other medications Type 2 diabetes mellitus with hemoglobin A1c goal of less than 7.0% (HCC) Super obese Morbid obesity documented in this encounter Care Teams Sonography Technologist Relationship Specialty Start Date End Date Kezia Elmore MD [address] [place] [address] PCP - General Family Medicine 09/10/20 documented as of this encounter
--- OUTSIDE RECORDS SUMMARY | 2023-07-14 09:42 | External Medical Summary | Summary of Care ---
Author Name Unknown Organization [facility] Address [address] [place] [address] Phone [phone] Care Team Providers Care Drug Abuse Social Worker Name Role Phone Michi Moreno MD Primary Care Provider [phone] Reason for Visit * Reason Comments Physical-Exam Pt here for cpe, den ies any concerns Encounter Details Date Type Department Care Team (Late st Contact Info) Description 05/18/2023 11:00 AM EST Office Visit [facility] [address] [facility] [place] [address] Michi Moreno MD [address] [place] [address] Type 2 diabetes mellitus with hemoglobin A1c goal of less than 7.0% ([facility])*; Dyslipidemia; KELLIE on CPAP; HTN, goal below 130/80; Super obese; Periodic limb movement disorder (PLMD) Allergies Active Allergy Reactions Criticality Noted Date [...] once daily 30 Tablet 0 04/11/2023 Active Ozempic (0.25 or 0.5 MG/DOSE) 2 MG/1.5ML Solution Pen-injector (Semaglutide(0.25 or 0.5MG/DOS)) Inject 0.25 mg under the skin once a week. 1.5 mL 0 05/18/2023 Active documented as of this encounter (statuses [...] on file documented as of this encounter Last Filed Vital Signs Vital Sign Reading Time Taken Comments Blood Pressure 122/70 05/18/2023 10:57 AM EST Pulse 84 05/18/2023 10:57 AM EST Temperature 36.7 C (98 F) 05/18/2023 10:57 AM EST Respiratory Rate 18 05/18/2023 10:57 AM EST Oxygen Saturation - - Inhaled Oxygen Concentration - - Weight 161.5 kg (356 lb) 05/18/2023 10:57 AM EST Height 177.8 cm (5' 10") 05/18/2023 10:57 AM EST Body Mass Index 51.08 05/18/2023 10:57 AM EST documented in this encounter Progress Notes * Michi Moreno MD - 05/18/2023 11:30 AM EST SUBJECTIVE: Tristian Butler is a 43 year old male. Chief Complaint Patient presents with Physical-Exam Pt here for cpe, denies any concerns HPI: Priyank is an uncontrolled type 2 diabetic with KELLIE and a BMI over 50 who comes in today for a routine visit. In spite of his Jardiance and Metformin, his A1c is 10.2%. Priyank would be the ideal candidate for a GLP-1 agonist. I discussed this with him today and he would be interested in starting Ozempic. He had a telemed visit with sleep medicine yesterday and is awaiting his new CPAP device. He feels well in general. Patient Active Problem List Diagnosis Code Super obese E66.9 KELLIE on CPAP G47.33 Periodic limb movement disorder (PLMD) G47.61 Type 2 diabetes mellitus with hemoglobin A1c goal of less than 7.0% (HCC) E11.9 Dyslipidemia E78.5 HTN, goal below 130/80 I10 Current Outpatient Medications Medication Sig Dispense Refill Multiple Vitamins-Iron (MULTI-DAY PLUS IRON) TABS Take 1 Tab by mouth daily. metFORMIN HCl ER 500 MG Oral Tablet Extended Release 24 Hour (Glucophage XR) TAKE 4 TABLETS BY MOUTH ONCE DAILY WITH A MEAL 360 Tablet 0 Methocarbamol 500 MG Oral Tablet (Robamol) TAKE 1 TABLET BY MOUTH 4 TIMES DAILY FOR MUSCLE SPASM 30Tablet 1 Fenofibrate 145 MG Oral Tablet (Tricor) TAKE 1 TABLET BY MOUTH IN THE MORNING 90 Tablet 0 Jardiance 25 MG Oral Tablet (Empagliflozin) TAKE 1 TABLET BY MOUTH IN THE MORNING 90 Tablet 0 Losartan Potassium-HCTZ 100-25 MG Oral Tablet (Hyzaar) Take 1 tablet by mouth once daily 30 Tablet 0 Ozempic (0.25 or 0.5 MG/DOSE) 2 MG/1.5ML Solution Pen-injector (Semaglutide(0.25 or 0.5MG/DOS)) Inject 0.25 mg under the skin once a week. 1.5 mL 0 No current facility-administered medications for this visit. Allergy: Review of patient's allergies indicates: Allergen Reactions Ivp Dye Nausea/vomiting Nausea and vomiting on administration IV dye for CT scan of abdomen OBJECTIVE: BP 122/70 | Pulse 84 | Temp 36.7 C (98 F) (Tympanic) | Resp 18 | Ht 1.778 m (5' 10") | Wt (!) 161.5 kg (356 lb) | BMI 51.08 kg/m | BSA 2.82 m Gen: morbidly obese, nad Lungs: ctab Heart: rrr, no mrg Ext: no c/c/e Skin: no rashes ASSESSMENT AND PLAN: (E11.9) Type 2 diabetes mellitus with hemoglobin A1c goal of less than 7.0% (HCC) (primary encounter diagnosis) Plan: continue Jardiance and Metformin; will start Ozempic 0.25 mg weekly and titrate up monthly; diabetic diet encouraged (E78.5) Dyslipidemia Plan: continue tricor; did not tolerate statins in the past; triglycerides are over 700 (G47.33) KELLIE on CPAP Plan: awaiting new CPAP device (I10) HTN, goal below 130/80 Plan: continue rx (E66.9) Super obese Plan: ozempic should help with weight loss (G47.61) Periodic limb movement disorder (PLMD) Plan: quiescent Follow up in 6 month(s). No other complaints were offered at this time. Michi Moreno MD documented in this encounter Nursing Notes * Anusha Joseph LPN - 05/18/2023 10:57 AM EST The patient has been properly identified by confirmation of name and date of . Chief Complaint Patient presents with Physical-Exam Pt here for cpe, denies any concerns documented in this encounter Plan of Treatment Upcoming Encounters Date Type Department Care Team (Late st Contact Info) Description 05/21/2024 10:40 AM EST Office Visit Family Practice [facility] [address] [address] Michi Moreno MD [address] [address] Health Maintenance Due Date Last Done Comments [...] hemoglobin A1c goal of less than 7.0% (HCC)- Primary Dyslipidemia Other and unspecified hyperlipidemia KELLIE on CPAP Obstructive sleep apnea (adult) (pediatric) HTN, goal below 130/80 Unspecified essential hypertension Super obese Morbid obesity Periodic limb movement disorder (PLMD) Periodic limb movement disorder documented in this encounter Care Teams Drug Abuse Social Worker Relationship Specialty Start Date End Date Michi Moreno MD [address] [place] [address] PCP - General Family Medicine 09/10/20 documented as of this encounter
--- OUTSIDE RECORDS SUMMARY | 2023-07-14 09:42 | External Medical Summary ---
Author Name Unknown Address Unknown Organization K01:[facility] [place] [address] [facility] [address] Laboratory Report Ordering Provider Test Date Status DEMAR SAAB 05/17/2023 09:04:56 Final Observation Date Value Abnormality Reference (Units ) Status MYCODE SPECIMEN-SST 05/17/2023 09:04:56 Freezing of extracted DNA, whole blood and/or serum. Final Performing Location [facility] [place] [address] [facility] [address]
--- OUTSIDE RECORDS SUMMARY | 2023-07-14 09:43 | External Medical Summary | Summary of Care ---
Author Name Unknown Organization [facility] Address [address] [place] [address] Phone [phone] Care Team Providers Care Hitcher Name Role Phone Kezia Elmore MD Primary Care Provider [phone] Reason for Visit * Reason Onset Date Comments eRx-Medication Refill Left Message 02/23/2023 Encounter Details Date Type Department Care Team Description 02/23/2023 Refill Family Practice [facility] [address] [place] [address] Kezia Elmore [facility] [address] [place] [address] Encounter for long-term (current) use of medications*; HTN, goal below 140/90 Allergies Active Allergy Reactions Severity Noted Date Comments Ivp Dye Nausea/vomiting Medium 12/13/2006 Nausea and vomiting on administration IV dye for CT scan of abdomen documented as of this encounter (statuses as of 02/24/2023) Medications Medication Sig Dispensed Refills Start Date [...] mouth once daily 30 Tablet 0 02/24/2023 Active Losartan Potassium-HCTZ 100-25 MG Oral Tablet (Hyzaar)Indicatio ns:HTN, goal below 140/90 Take 1 tablet by mouth once daily 90 Tablet 0 12/02/2022 02/24/2023 Discontinued documented as of this encounter (statuses as of 02/24/2023) Active Problems Problem Noted Date HTN, goal [...] as of this encounter (statuses as of 02/24/2023) Resolved Problems Problem Noted Date Resolved Date [...] as of this encounter (statuses as of 02/24/2023) Immunizations Name Administration Dates Next Due Pneumococcal [...] Telephone Encounter - Kezia Elmore MD - 02/24/2023 9:37 AM EDTSigned Prescriptions: Disp Refills Losartan Potassium-HCTZ 100-25 MG Oral Tab*30 Tab*0 Sig: Take 1 tablet by mouth once daily Authorizing Provider: KEZIA ELMORE * Telephone Encounter - Teena Lynn CPhT - 02/24/2023 9:21 AM EDTPending Prescriptions: Disp Refills Losartan Potassium-HCTZ 100-25 MG Oral Tab*30 Tab*0 Sig: Take 1 tablet by mouth once daily * Telephone Encounter - Teena Lynn CPhT - 02/24/2023 9:20 AM EDT Received message from [facility] regarding patient needing appointment and labs. Placed call to patient toadvise. Left message on voicemail to call back and schedule appointment. Thank you, Teena Lynn CPhT Mental Health Counselor II [facility] ( Formerly [facility]) 02/24/2023,9:20 AM * Telephone Encounter - Cheryl Bedoya [facility] - 02/24/2023 7:50 AM EDTPending Prescriptions: Disp Refills Losartan Potassium-HCTZ 100-25 MG Oral Tab*30 Tab*0 Sig: Take 1 tablet by mouth once daily * Telephone Encounter - Cheryl Bedoya [facility] - 02/24/2023 7:48 AM EDT 2nd attempt Unable to authorize medication refills for pended medication(s) at this time. Part of the protocol criteria used for refill authorization was not satisfied. Per refill protocol patient should have routine labs and office visit on file within past year. Reviewed AMP report, Care Gaps/Health Maintenance, medications list, and for any routine labs typicallyordered for this patient. Lab orders placed. Please contact patient to schedule office visit with his PRIMARY CARE and advise of labs ordered for blood draw AND URINE specimen (patient will have to be able to void to provide sample).. Recommendpatient to fast if able for labs. Patient may still have water and regular medications. Advise to obtain labs before his scheduled office visit Visit date not found. Last Visit: 03/03/2021 (in office), Visit date not found (telemedicine) Next Visit: Visit date not found After contacting patient, please forward request to Kezia Elmore MD. Thank You, Cheryl Bedoya [facility] Clinical Pharmacist [facility] ([facility]) (formerly Telepharmacy) [phone] 02/24/2023, 7:50 AM documented in this encounter Plan of Treatment Scheduled Orders Name Type Priority Associated Diagnoses Orde r Schedule VITAMIN B12 Lab Routine Encounter for long-term (current) use of medications Expected: 02/24/2023 (Approximate), Expires: 02/25/2024 COMPREHENSIVE METABOLIC PANEL Lab Routine Encounter for long-term (current) use of medications Expected: 02/24/2023 (Approximate), Expires: 02/25/2024 ALBUMIN / CREATININE RATIO, URINE Lab Routine Encounter for long-term (current) use of medications Expected: 02/24/2023 (Approximate), Expires: 02/25/2024 Health Maintenance Due Date Last Done Comments [...] for long-term (current) use of other medications HTN, goal below 140/90 Unspecified essential hypertension documented in this encounter Care Teams Hitcher Relationship Specialty Start Date End Date Kezia Elmore MD [address] [place] [address] PCP - General Family Medicine 09/10/20 documented as of this encounter
--- NOTE | 2023-07-14 11:15 | Surgery Progress Note ---
Date of Service July 14, 2023 Assessment & Plan (1) Acute cholecystitis: Plan: Will plan on laparoscopic cholecystectomy, possible open, possible IOC Consent was obtained, risks discussed including bleeding, infection, bile leak, ductal injury Admission and Anticipated Discharge Date Admission Date: July 13, 2023 Subjective Pt seen and examined. Still with RUQ abdominal pain. No fevers. No N/V Review of Systems Constitutional: no fever and no chills Gastrointestinal: + abdominal pain; no nausea and no vomit ing Physical Exam Constitutional: WD/WN, vitals as above Gastrointestinal (Abdomen): Inspection/Auscultation: abdomen normal to inspection; abdomen not distended Percussion/Palpation: + abdomen tender (RUQ) and abdomen soft; no hernia Results & Data Vital Signs (Past 12 Hours) Vital Signs Pulse Pulse Resp BP Pulse Ox O2 Del Method 07/14/23 08:21 103 H 18 156/89 H 97 Room Air 07/14/23 03:11 98 H 20 93 Room Air 07/14/23 02:37 94 H 07/14/23 01:03 93 H 146/94 H 07/13/23 23:54 97 H 07/13/23 23:54 97 H 165/94 H 07/13/23 23:22 31 H 165/94 H 92 PG Care Time/CCT Total # of Minutes Spent Total Time Spent with Patient: Total time spent is greater than 50% in coordination of care (as documented) at patient's floor/unit and/or counseling patient: Coding Level of Care Code 93398 SUB INP/OBS CARE 06/23MIN Diagnoses Acute cholecystitis K81.0
[2023-07-14] MEDS ORDERED: fentaNYL citrate PF 100 MCG/2 ML VIAL ONE ×3 (11:36→14:16)
[2023-07-14] MEDS ORDERED: MIDAZOLAM HCL 1 MG/ML 2ML VIAL ONE (11:36)
[2023-07-14] MEDS ORDERED: ACETAMINOPHEN 1000 MG/100 ML IV IV ONE (11:40)
[2023-07-14] MEDS ORDERED: PHARMACY GLYCEMIC MGMT CONSULT PRN (12:09)
--- NOTE | 2023-07-14 12:09 | Anesthesiology Consultation ---
Date of Service July 14, 2023 Assessment & Plan Chart Review Chart Review: Acceptable Risk for Surgery (discussed concern for SAPKA) Consults Requested none medical is following the patient ASA ASA3 Proposed Anesthesia Anesthesia Type: General Risk / Benefits Reviewed With: PT / POA / Parent / Guardian, Accepts Plan and Informed Consent Obtained History Surgery Operation Date: 07/14/23 07:00 Proposed Procedures p Laparoscopic Cholecystectomy - Ramon Amor, DO The patient will undergo a lap cholecystectomy. It is an urgent surgery as per Dr. Amor. The patient takes empagliflozin and metformin for his DM 2. He last took them two to three days ago. He is not sure since he stopped taking them when he started feeling ill. He also takes dulaglutide injections weekly, but missed his dose last night so has not had it in eight days. I spoke to the patient about his increased risk of SAPKA (ketoacidosis) as well as increased urinary tract infections from empagliflozin and undergoing surgery. The patient understands and accepts the risks. I also spoke with Dr. Amor and Dr. Stern about my concerns with the empagliflozin. They will watch him overnight. Height/Weight Height: 5 ft 11 in Weight: 154 kg Allergies Allergy/AdvReac Type Severity Reaction Status Date / Time Penicillins Allergy Severe THROAT/FACE Verified 07/13/23 21:46 SWELLS iodine Allergy Unknown CAN'T Unverified 07/13/23 21:46 REMEMBER Medications Home Medications Medication Instructions Recorded Confirmed Last Taken dolooygy-rbiypsap-afdpu acid 400 1 tab PO DAILY 07/22/21 07/13/23 07/21/21 mcg-vit K 20 mcg-lycop 300 mcg tablet (Men's One Daily) dulaglutide 0.75 mg/0.5 mL 0.75 mg subcut WK 07/13/23 07/13/23 Unknown subcutaneous pen injector (Trulicity) empagliflozin 25 mg tablet 25 mg PO QAM 07/13/23 07/13/23 Unknown (Jardiance) fenofibrate nanocrystallized 145 145 mg PO QAM 07/13/23 07/13/23 Unknown mg tablet losartan 100 1 tab PO DAILY 07/13/23 07/13/23 Unknown mg-hydrochlorothiazide 25 mg tablet Active Medications Generic Name Dose Route Start Last Admin Trade Name Freq PRN Reason Stop Dose Admin Fenofibrate 145 mg 07/14/23 09:00 07/14/23 08:26 Fenofibrate Nanocrystallized 145 Mg Tablet PO 08/13/23 08:59 145 mg QAM LOIS Administration HCTZ/Losartan Potassium 1 tab 07/14/23 09:00 07/14/23 08:26 Losartan/Hctz 50/12.5mg Tab PO 08/13/23 08:59 1 tab DAILY LOIS Administration Sodium Chloride 1,000 mls @ 100 mls/hr 07/13/23 22:30 07/14/23 09:25 Nss IV 08/12/23 22:29 100 mls/hr .Q10H LOIS Administration Ciprofloxacin 400 mg in 200 mls @ 100 mls/hr 07/14/23 08:00 07/14/23 11:25 Cipro / D5w IV 07/24/23 07:59 Infused Q12H LOIS Infusion Protocol Metronidazole 500 mg in 100 mls @ 100 mls/hr 07/14/23 08:00 07/14/23 09:39 Flagyl IV 07/24/23 07:59 Infused Q8H LOIS Infusion Protocol Famotidine 20 mg/ Syringe 5 mls @ 2.5 mls/min 07/14/23 09:00 07/14/23 08:29 IV 08/13/23 08:59 2.5 mls/min DAILY LOIS Administration Insulin Aspart 0 units 07/14/23 02:30 07/14/23 11:37 Insulin Aspart Per Unit Charge SC 08/13/23 02:29 1 units Q6 LOIS Administration Multivitamins/Minerals 1 tab 07/14/23 09:00 07/14/23 08:26 Cerovite Adv Formula Tab PO 08/13/23 08:59 1 tab DAILY LOIS Administration NPO Date Last Intake of Fluids: 07/13/23 Time Last Intake of Fluids: 13:00 Date Last Intake of Solids: 07/13/23 Time Last Intake of Solids: 13:00 Past Medical History Medical History Sleep apnea Periodic limb movement disorder Morbid obesity Diabetes mellitus Lumbar radiculopathy Hyperglycemia High blood pressure Exercise / Class Metabolic Activity II 4-5 Yardwork/Stairs/Walk up hill no chest pain or sob, patient has abdominal pain Past Anesthesia History No Hx of Anesthesia Complications and No Family Hx of Anesthesia Complications History of PONV No Hx of PONV and No Hx of Motion Sickness Social History Smoking Status: Former smoker Do You Dip or Chew Tobacco: No Hx Alcohol Use: Yes Alcohol type: beer alcohol intake frequency: holidays/special occasions only Hx Substance Use: No substance use type: does not use Review of Systems no chest pain or sob, abdominal pain Physical Exam Vital Signs Last Vital Signs Temp 37.0 C 07/14/23 11:44 Pulse 113 H 07/14/23 11:44 Resp 22 07/14/23 11:44 BP 155/89 H 07/14/23 11:44 Pulse Ox 96 07/14/23 11:44 O2 Del Method Room Air 07/14/23 11:44 Constitutional + morbidly obese ENMT Mouth: no TMJ abnormality Thyromental Distance: > or= 3.5 Finger Breadths Mallampati Class: III Neck + thick neck and + facial hair Respiratory normal respiratory effort Auscultation: lungs clear to auscultation bilaterally Cardiovascular Rate/Rhythm: regular rate and regular rhythm Musculoskeletal Spine: normal cervical ROM Neurologic moves all extremities Psychiatric Orientation: alert and oriented x 3 Testing Laboratory Results 07/14/23 05:45 07/14/23 05:45 PT 11.6 Seconds (9.0-12.0) 07/14/23 06:59 INR 1.1 (0.9-1.1) 07/14/23 06:59 Hemoglobin A1c 9.0 % (4.5-5.6) H 07/14/23 05:45 Urine Color Dark Yellow 07/13/23 19:58 Urine Appearance Cloudy (Clear) A 07/13/23 19:58 Urine pH 6.0 (4.5-7.5) 07/13/23 19:58 Ur Specific [place] > 1.045 (1.000-1.030) H 07/13/23 19:58 Urine Protein 2+ (Negative) H 07/13/23 19:58 Urine Glucose (UA) 3+ (Negative) H 07/13/23 19:58 Urine Ketones Trace (Negative) H 07/13/23 19:58 Urine Nitrite Negative (Negative) 07/13/23 19:58 Ur Leukocyte Esterase Negative (Negative) 07/13/23 19:58 Urine WBC (Auto) >30 /hpf (0-5) H 07/13/23 19:58 Urine RBC (Auto) 0-4 /hpf (0-4) 07/13/23 19:58 U Hyaline Cast (Auto) 1-5 /lpf (0-5) 07/13/23 19:58 U Epithel Cells (Auto) >30 /lpf (0-5) H 07/13/23 19:58 Urine Bacteria (Auto) 4+ (Negative) H 07/13/23 19:58 07/13/23 19:58 Urine Culture - Preliminary Urine,Clean Catch Gram negative bacilli 07/14/23 07/14/23 07/14/23 11:09 05:47 01:54 POC Glucose 166 H 176 H 204 H
[2023-07-14] MEDS ORDERED: KETAMINE HCL 10MG/ML SYR ONE (12:44)
[2023-07-14] MEDS ORDERED: LIDOCAINE 2% 2 ML VIAL/AMP(20MG/ML) INFIL ONE (12:45)
[2023-07-14] MEDS ORDERED: ROCURONIUM BROMIDE 10 MG/ML 5 ML VIAL IV ONE ×2 (12:45→13:43)
[2023-07-14] MEDS ORDERED: ONDANSETRON INJ 2 MG/ML 2 ML VIAL ONE ×2 (12:45→14:47)
[2023-07-14] MEDS ORDERED: PROPOFOL IV EMULSION 10 MG/ML 20 ML VIAL IV ONE (12:45)
[2023-07-14] MEDS ORDERED: PHENYLEPHRINE 100MCG/ML 10ML SYR IV ONE (12:45)
[2023-07-14] MEDS ORDERED: SUGAMMADEX SODIUM 200 MG/2 ML VIAL IV ONE ×2 (13:43)
[2023-07-14] MEDS ORDERED: PHENYLEPHRINE 100MCG/ML 5ML SYR IV PRN (14:32)
[2023-07-14] MEDS ORDERED: ATROPINE SULFATE 0.1 MG/ML 10ML SYR IV PRN (14:32)
[2023-07-14] MEDS ORDERED: HYDROmorphone INJ 1 MG/ML SYRINGE IV PRN (14:32)
[2023-07-14] MEDS ORDERED: ePHEDrine sulfate 50 MG/ML AMP IV PRN (14:32)
[2023-07-14] MEDS: FLOSEAL HEMOSTATIC MATRIX 10ML TOP ONE (14:44)
[2023-07-14] MEDS: BUPIVACAINE/EPINEPHRINE 0.5% MPF 1:200,000 30 ML VIAL ONE (14:45)
--- NOTE | 2023-07-14 15:01 | Post Operative Brief Note ---
PG Immediate Post Op with CF Date of Surgery July 14, 2023 Pre & Post Diagnosis Operation Date: 07/14/23 07:00 Pre-Op Diagnosis: Acute Cholecystitis Post-Op Diagnosis: Acute Gangrenous Cholecystitis I identified the patient and participated in the time-out.: Yes Procedure Operation Date: 07/14/23 07:00 Actual Procedures p Laparoscopic Cholecystectomy(Not Applicable) - Ramon Amor DO Surgeon Ramon Amor DO Moving Picture Producer Lynda Gottlieb PA-C Estimated Blood Loss 100 Findings See Below Acutely inflamed, dilated gallbladder with thickened wall Pus within the gallbladder Specimens Specimen Description: A) Gallbladder and Contents Drains Isrrael-Ha Drain Anesthesia Type General Complications none Disposition Disposition: Recovery Room
--- NOTE | 2023-07-14 15:01 | Operative Report ---
PG Post Operative Report Pre & Post Diagnosis Operation Date: 07/14/23 07:00 Pre-Op Diagnosis: Acute Cholecystitis Post-Op Diagnosis: Acute Gangrenous Cholecystitis I identified the patient and participated in the time-out.: Yes Procedure Operation Date: 07/14/23 07:00 Actual Procedures p Laparoscopic Cholecystectomy(Not Applicable) - Ramon Amor DO Surgeon Ramon Amor DO Ged Preparation Teacher Lynda Gottlieb PA-C Estimated Blood Loss 100 Findings See Below Acutely inflamed, dilated gallbladder with thickened wall Pus within the gallbladder Fluids see anesthesia record Specimens Gallbladder to pathology Drains 19 Fr Ramon drain in GB fossa Anesthesia Type General Complications none Disposition Disposition: Recovery Room Indications 43 yo male with acute cholecystitis Description of Procedure The patient was brought to the operating room and placed in the supine position with both arms extended. At this time he underwent general endotracheal anesthesia without any problems. He was given appropriate pre-operative antibiotics. His abdomen prepped and draped in the usual sterile fashion. A timeout was called, the procedure was verified as Laparoscopic cholecystectomy, possible open, possible intra-operative cholangiogram. Surgical, nursing and anesthesia teams agreed and the procedure was begun. After injection of 0.25% Marcaine with epinephrine, a supraumbilical vertical incision was made and carried down to the fascia using S-retractors. The abdominal wall was then elevated with towel clamps and abdomen entered using the Veress needle confirming position using the saline drop test. Pneumoperitoneum was established. 5mm trocar was placed. Laparoscope was introduced. No injury from entry into the abdomen was visualized after inspection of the abdomen. Three further ports were placed under direct visualization. One 11mm in the subxiphoid region and two 5mm in the RUQ. At this time the abdomen was inspected and the gallbladder identified. The gallbladder fundus was grasped and retracted cephalad. Thickened fat wrapping of the gallbladder was seen. This was taken down using sharp and blunt dissection. The gallbladder infundibulum was then grasped and retracted laterally. Upon retraction of the gallbladder fundus, the medial portion of the wall tore and pus was expressed from the gallbladder. The infundibulum and cystic artery were then identified and skeletonized. The critical view of safety was obtained. The infundibulum was taken using a 45mm donahue load JASPER stapler after upsizing the 11mm subxiphoid port to a 12mm. The artery was then clipped twice proximally and once distally and then divided using scissors. The gallbladder was then taken off of the liver bed using electrocautery and placed in an endocatch bag and removed from the subxiphoid port. The liver bed was then inspected and no bile leak or bleeding was evident. The subxiphoid port was then closed using 0-Vicryl using the suture passer. The trocars were then removed under direct visualization and no bleeding was present. Abdomen was desufflated. The skin was then closed using 4-0 Monocryl in a subcuticular fashion. Surgical glue was applied. Needle and sponge counts were correct x 2. At this time the patient was awoken from anesthesia and extubated having remained stable throughout the entire case. The patient was then transported to PACU in stable condition. The physician roofer assistant was present and scrubbed for the entire procedure. She was essential in positioning, prepping and draping the patient, retraction and exposure, driving the laparoscope, closure of the incisions and placement of the dressings. I attest to the content of the Intraoperative Record and any orders documented therein. Any exceptions are noted below.
[2023-07-14] MEDS: fentaNYL citrate PF 100 MCG/2 ML VIAL IV PRN (15:34)
[2023-07-14] MEDS ORDERED: oxyCODONE HCL IR 5 MG TAB (IMMEDIATE RELEASE) PO PRN (16:30)
--- NOTE | 2023-07-14 16:34 | Anesthesiology Progress Note ---
Date of Service July 14, 2023 Anesthesia Post Procedure Vital Signs Vital Signs: Temp Pulse Pulse Pulse Resp BP BP 07/14/23 16:05 101 H 20 128/73 07/14/23 15:56 97.7 F 101 H 22 121/74 07/14/23 15:45 100 H 23 122/83 07/14/23 15:35 100 H 29 H 136/84 07/14/23 15:25 104 H 20 135/85 07/14/23 15:16 108 H 26 H 146/90 H 07/14/23 15:07 97.0 F L 114 H 22 112/73 07/14/23 11:44 98.6 F 113 H 22 155/89 H 07/14/23 11:00 108 H 20 139/74 07/14/23 08:21 103 H 18 156/89 H 07/14/23 03:11 98 H 20 07/14/23 02:37 94 H 07/14/23 01:03 93 H 146/94 H 07/13/23 23:54 97 H 07/13/23 23:54 97 H 165/94 H 07/13/23 23:22 31 H 165/94 H 07/13/23 23:13 20 07/13/23 22:00 98 H 42 H 163/86 H 07/13/23 21:00 105 H 23 186/114 H 07/13/23 20:00 102 H 27 H 150/94 H 07/13/23 19:55 101 H 07/13/23 19:52 104 H 20 07/13/23 19:52 104 H 16 165/96 H 07/13/23 18:47 97.9 F 113 H 18 168/109 H Pulse Ox O2 Del Method O2 Flow Rate 07/14/23 16:05 92 Oxymask 0 07/14/23 15:56 92 Oxymask 0 07/14/23 15:45 97 Oxymask 0 07/14/23 15:35 97 Oxymask 4 07/14/23 15:25 97 Oxymask 4 07/14/23 15:16 96 Oxymask 4 07/14/23 15:07 98 Oxymask 8 07/14/23 11:44 96 Room Air 07/14/23 11:00 96 Room Air 07/14/23 08:21 97 Room Air 07/14/23 03:11 93 Room Air 02/15/24 02:37 07/14/23 01:03 07/13/23 23:54 07/13/23 23:54 07/13/23 23:22 92 07/13/23 23:13 07/13/23 22:00 95 07/13/23 21:00 97 07/13/23 20:00 96 07/13/23 19:55 07/13/23 19:52 94 Room Air 07/13/23 19:52 95 Room Air 07/13/23 18:47 97 Room Air Pain Intensity Right Lower Abdomen: Pain Intensity: 3 Transfer of Care Handoff Completed per policy Notes Mental Status: alert / awake / arousable and participated in evaluation Patient Amnestic to Procedure: Yes Nausea / Vomiting: adequately controlled Pain: adequately controlled Airway Patency, RR, SpO2: stable & adequate BP & HR: stable & adequate Hydration State: stable & adequate Anesthetic Complications: no major complications apparent and Pt Satisfied with anesthetic care
[2023-07-14] MEDS: HYDROmorphone INJ 0.5 MG/0.5 ML SYR IV PRN (16:39)
[2023-07-14 16:49] LABS: Base Excess VBG -6.3 mEq/L; HCO3 VBG 20 mmol/L; Oxygen Saturation VBG 85.8 %; PCO2 VBG 40 mmHg (38-50); PO2 VBG 55 mmHg
--- NOTE | 2023-07-14 16:59 | Hospitalist Progress Note ---
Date of Service July 14, 2023 Assessment & Plan (1) Acute cholecystitis: Plan: 43-year-old male with past medical history significant for type 2 diabetes, hyperlipidemia, obstructive sleep apnea on CPAP, hypertension, obesity, periodic limb movement disorder presents with abdominal pain and found to have acute cholecystitis. Patient reported abd pain over last 4 days, initially right sided and then epigastric, worsened, not improved with ibuprofen and antacids, associated with nausea and vomiting Acute cholecystitis Abdominal pain LFTs okay CT scan consistent with cholecystitis Gallbladder ultrasound showed cholelithiasis Patient was evaluated by Gen surg and taken to OR this morning S/p laparoscopic cholecystectomy Post op diagnosis was Acute Gangrenous Cholecystitis Continue IV ciprofloxacin and Flagyl Currently on clears Pain control Diabetes mellitus Hold home medications Labs earlier today noted bicarb of 18 and AGAP 15 With patient being on Jardiance, concern for SAPKA (SGLT Associated Perioperative Ketoacidosis) However, Stat BMP now after OR showed normal bicarb and AGAP. Patient also reported he last took his antidiabetics 5 days ago when symptoms started Continue IVF for now and monitor Discussed with pharm Continue subcut insulin Check urine ketones Monitor BMP closely today hbA1c 9 Hypertension Continue home dose of losartan/ hydrochlorothiazide Will monitor Obesity Needs counseling regarding Lifestyle modification and weight loss Sleep apnea CPAP nightly Hyperlipidemia On fenofibrate DVT prophylaxis SCDs for now Disposition Med/tele Full code I spent a total of 50 minutes coordinating, documenting and providing care for this patient excluding time spent in performance of separately billed services Admission and Anticipated Discharge Date Admission Date: July 13, 2023 Subjective Patient seen after return from OR Patient reports surgical site pain Denied nausea, vomiting, diarrhea Denied chest pain, cough, SOB Denied any dysuria, freq, urgency, hematuria Reports weakness Physical Exam Constitutional: + well hydrated and + obese; no acute di stress Eyes: PERRL, conjunctivae normal, anicteric sclerae ENMT: external ear and nose normal, oropharynx normal Respiratory: normal respiratory effort, lungs clear to auscultation Cardiovascular: Rate/Rhythm: regular rate and regular rhythm S1 S2 Gastrointestinal (Abdomen): Soft, non distended, mild tenderness around incision site, normal bowel sounds Musculoskeletal: No pedal edema Neurologic: PERRL, EOMI, accommodation nl, no face palsy, no dysarthria Psychiatric: A+Ox3, euthymic affect Results & Data Results & Data Vital Signs (Past 12 Hours) Vital Signs Temp Pulse Pulse Pulse Resp BP BP 07/14/23 16:40 36.6 C 100 H 18 114/73 07/14/23 16:05 101 H 20 128/73 07/14/23 15:56 36.5 C 101 H 22 121/74 07/14/23 15:45 100 H 23 122/83 07/14/23 15:35 100 H 29 H 136/84 07/14/23 15:25 104 H 20 135/85 07/14/23 15:16 108 H 26 H 146/90 H 07/14/23 15:07 36.1 C L 114 H 22 112/73 07/14/23 11:44 37.0 C 113 H 22 155/89 H 07/14/23 11:00 108 H 20 139/74 07/14/23 08:21 103 H 18 156/89 H Pulse Ox O2 Del Method O2 Flow Rate 07/14/23 16:40 94 Room Air 07/14/23 16:05 92 Oxymask 0 07/14/23 15:56 92 Oxymask 0 07/14/23 15:45 97 Oxymask 0 07/14/23 15:35 97 Oxymask 4 07/14/23 15:25 97 Oxymask 4 07/14/23 15:16 96 Oxymask 4 07/14/23 15:07 98 Oxymask 8 07/14/23 11:44 96 Room Air 07/14/23 11:00 96 Room Air 07/14/23 08:21 97 Room Air Laboratory Results Abnormal lab results 07/13/23 07/13/23 07/14/23 Range/Units 19:15 19:58 01:54 WBC 14.95 H (4.8-10.8) K/ul MCHC (32.0-36.0) g/dL Neut # (Auto) 11.31 H (1.40-6.50) K/uL [place] # (Auto) 1.02 H (0.11-0.59) K/uL VBG pH (7.36-7.41) Sodium 134 L (136-145) mmol/L Carbon Dioxide (21-32) mmol/L Anion Gap (3-11) Glucose 188 H (70-99(Fasting)) mg/dl POC Glucose 204 H (70-99) mg/dl Hemoglobin A1c (4.5-5.6) % Globulin 4.2 H (2.5-4.0) gm/dl Urine Appearance Cloudy A (Clear) Ur Specific [place] > 1.045 H (1.000-1.030) Urine Protein 2+ H (Negative) Urine Glucose (UA) 3+ H (Negative) Urine Ketones Trace H (Negative) Urine Blood Trace H (Negative) Urine WBC (Auto) >30 H (0-5) /hpf U Epithel Cells (Auto) >30 H (0-5) /lpf Urine Bacteria (Auto) 4+ H (Negative) 07/14/23 07/14/23 07/14/23 Range/Units 05:45 05:45 05:45 WBC 14.45 H (4.8-10.8) K/ul MCHC 31.9 L (32.0-36.0) g/dL Neut # (Auto) 12.70 H (1.40-6.50) K/uL [place] # (Auto) (0.11-0.59) K/uL VBG pH (7.36-7.41) Sodium (136-145) mmol/L Carbon Dioxide 18 L 18 L (21-32) mmol/L Anion Gap 15 H 15 H (3-11) Glucose 199 H (70-99(Fasting)) mg/dl POC Glucose (70-99) mg/dl Hemoglobin A1c (4.5-5.6) % Globulin (2.5-4.0) gm/dl Urine Appearance (Clear) Ur Specific [place] (1.000-1.030) Urine Protein (Negative) Urine Glucose (UA) (Negative) Urine Ketones (Negative) Urine Blood (Negative) Urine WBC (Auto) (0-5) /hpf U Epithel Cells (Auto) (0-5) /lpf Urine Bacteria (Auto) (Negative) 07/14/23 07/14/23 07/14/23 Range/Units 05:45 05:47 11:09 WBC (4.8-10.8) K/ul MCHC (32.0-36.0) g/dL Neut # (Auto) (1.40-6.50) K/uL [place] # (Auto) (0.11-0.59) K/uL VBG pH (7.36-7.41) Sodium (136-145) mmol/L Carbon Dioxide (21-32) mmol/L Anion Gap (3-11) Glucose 200 H (70-99(Fasting)) mg/dl POC Glucose 176 H 166 H (70-99) mg/dl Hemoglobin A1c 9.0 H (4.5-5.6) % Globulin 4.3 H (2.5-4.0) gm/dl Urine Appearance (Clear) Ur Specific [place] (1.000-1.030) Urine Protein (Negative) Urine Glucose (UA) (Negative) Urine Ketones (Negative) Urine Blood (Negative) Urine WBC (Auto) (0-5) /hpf U Epithel Cells (Auto) (0-5) /lpf Urine Bacteria (Auto) (Negative) 07/14/23 07/14/23 Range/Units 15:11 16:37 WBC (4.8-10.8) K/ul MCHC (32.0-36.0) g/dL Neut # (Auto) (1.40-6.50) K/uL [place] # (Auto) (0.11-0.59) K/uL VBG pH 7.30 L (7.36-7.41) Sodium (136-145) mmol/L Carbon Dioxide (21-32) mmol/L Anion Gap (3-11) Glucose (70-99(Fasting)) mg/dl POC Glucose 237 H (70-99) mg/dl Hemoglobin A1c (4.5-5.6) % Globulin (2.5-4.0) gm/dl Urine Appearance (Clear) Ur Specific [place] (1.000-1.030) Urine Protein (Negative) Urine Glucose (UA) (Negative) Urine Ketones (Negative) Urine Blood (Negative) Urine WBC (Auto) (0-5) /hpf U Epithel Cells (Auto) (0-5) /lpf Urine Bacteria (Auto) (Negative)
[2023-07-14 17:10] LABS: BUN Creatinine Ratio 18.8 (10-20); Calcium 8.6 mg/dl (8.6-10.3); Creatinine Clr Calc Pharmacy 169.2 ml/min; Est GFR (African American) 123.7 ml/min; Est GFR (Non-African American) 106.7 ml/min; Potassium 4.5 mmol/L (3.5-5.1)
[2023-07-14] MEDS: LANTUS PER UNIT CHARGE SC ONE (18:04)
--- NOTE | 2023-07-14 21:07 | Pharmacy Report ---
Pharmacy Glycemic Short Note 2 - Date of Service July 14, 2023 - Glycemic Short BSG Results (Last 24 hours): 07/14/23 07/14/23 07/14/23 01:54 05:45 05:45 Glucose 199 H 200 H POC Glucose 204 H 07/14/23 07/14/23 07/14/23 05:47 11:09 15:11 Glucose POC Glucose 176 H 166 H 237 H 07/14/23 07/14/23 07/14/23 16:37 17:19 20:56 Glucose 220 H POC Glucose 187 H 193 H OUTPATIENT ANTIDIABETIC REGIMEN: * Damon Maloney * A1c 9.0% 07/14/23 ASSESSMENT: * Patient admitted with acute cholecystitis, s/p cholecystectomy. * Initial BSGs in the 170s, labs earlier today with low bicarb 18/anion gap 15- some initial concern for SAPKA * Post op bicarb has normalized as well and anion gap closed, VBG was slightly acidotic 7.30 * Discussed with hospitalist, will continue with subq insulin, fluids for now and monitor * Tightened correction factor/carb ratio and gave 1x dose of lantus- will need further assessment in the AM PLAN FOR INPATIENT GLYCEMIC CONTROL: * Hold outpatient oral diabetes medications * Basal insulin * Lantus 15 units x1 * Bolus insulin * NovoLog per scale ACHS or Q6hrs while NPO * Goal Range: Low 110 mg/dL - High 140 mg/dL * Correction Factor: 25 mg/dL/unit * Nutritional / Prandial insulin per carb ratio of 1 unit per 10 grams CHO consumed
--- NOTE | 2023-07-14 21:58 | Electrocardiogram Report ---
Test Reason : Blood Pressure : / mmHG Vent. Rate : 107 BPM Atrial Rate : 107 BPM P-R Int : 148 ms QRS Dur : 092 ms QT Int : 354 ms P-R-T Axes : 071 009 036 degrees QTc Int : 472 ms Sinus tachycardia Otherwise normal ECG When compared with ECG of 13-DEC-2015 13:48, No significant change was found Confirmed by Felipe Thacker ([id number]) on 07/14/2023 9:58:02 PM Referred By: REFERRED SELF Confirmed By:Felipe Thacker
[2023-07-14 22:54] LABS: Calcium 8.6 mg/dl (8.6-10.3); Potassium 4.2 mmol/L (3.5-5.1)
[2023-07-14 23:00] LABS: BUN Creatinine Ratio 18.2 (10-20); Creatinine Clr Calc Pharmacy 186.8 ml/min; Est GFR (African American) 128.8 ml/min; Est GFR (Non-African American) 111.1 ml/min
[2023-07-15] MEDS: INSULIN ASPART PER UNIT CHARGE SC SCH (00:55)
[2023-07-15] MEDS: oxyCODONE HCL IR 5 MG TAB (IMMEDIATE RELEASE) PO PRN (00:55)
--- NOTE | 2023-07-15 07:56 | Surgery Progress Note ---
Date of Service July 15, 2023 Assessment & Plan (1) Acute cholecystitis: Plan: POD#1 laparoscopic cholecystectomy Labs this AM are pending. Vitals show HR 90-100s, afebrile, BPs stable Expected post operative pain noted, incisions c/d/i. YADY drain serosang If blood work returns okay may continue to advance diet as tolerates Continue IV pain meds while in house, will recommend transition to PO upon discharge to complete a course at home YADY drain to remain in place for now [facility] surgery covering the wknd as above. pain improving but having trouble urinating. will add flomax. ok to advance diet as tolerated. no LFT's drawn today so we will order Admission and Anticipated Discharge Date Admission Date: July 13, 2023 Subjective Patient reports feeling okay this AM. Some post surgical pain noted, but better than admitting symptoms. Denies nausea/vomiting. Tolerating clears. No n/v. Physical Exam Physical Exam: awake/alert, no distress Gastrointestinal (Abdomen): Inspection/Auscultation: + abdominal surgical incision (c/d/i with skin glue) and + abdominal surgical drain present (serosang) Percussion/Palpation: + abdomen tender (expected ezekiel incisional discomfort) and abdomen soft obese abdomen Results & Data Vital Signs (Past 12 Hours) Vital Signs Temp Pulse Pulse Pulse Resp BP Pulse Ox 07/15/23 07:00 101 H 07/15/23 03:59 98.1 F 98 H 18 130/79 92 07/14/23 23:35 98.4 F 97 H 16 131/53 L 92 07/14/23 23:10 105 H 27 H 96 07/14/23 22:47 97 H 07/14/23 20:14 97.7 F 102 H 18 153/82 H 95 O2 Del Method 07/15/23 07:00 07/15/23 03:59 Room Air 07/14/23 23:35 Room Air 07/14/23 23:10 07/14/23 22:47 07/14/23 20:14 Room Air PG Care Time/CCT Total # of Minutes Spent Total Time Spent with Patient: Total time spent is greater than 50% in coordination of care (as documented) at patient's floor/unit and/or counseling patient: Coding Level of Care Code 56245 Post Operative Follow-Up Diagnoses Acute cholecystitis K81.0
[2023-07-15] MEDS: LANTUS PER UNIT CHARGE SC SCH (09:01)
--- NOTE | 2023-07-15 09:23 | Hospitalist Progress Note ---
Date of Service July 15, 2023 Assessment & Plan (1) Acute cholecystitis: Plan: 43-year-old male with past medical history significant for type 2 diabetes, hyperlipidemia, obstructive sleep apnea on CPAP, hypertension, obesity, periodic limb movement disorder presents with abdominal pain and found to have acute cholecystitis. Patient reported abd pain over last 4 days, initially right sided and then epigastric, worsened, not improved with ibuprofen and antacids, associated with nausea and vomiting Acute cholecystitis Abdominal pain LFTs okay CT abd showed acute cholecystitis Gallbladder ultrasound showed cholelithiasis Patient was evaluated by Gen surg and taken to OR this morning S/p laparoscopic cholecystectomy Post op diagnosis was Acute Gangrenous Cholecystitis POD#1 Continue IV ciprofloxacin and Flagyl Currently on clears. Tolerating well Advance diet as tolerated Pain control Diabetes mellitus Hold home medications Labs earlier on 07/14/23 noted bicarb of 18 and AGAP 15 With patient being on Jardiance, there was initial concern for SAPKA (SGLT Associated Perioperative Ketoacidosis) However, Stat BMP now after OR showed normal bicarb and AGAP. Hence ruled out Patient also reported he last took his antidiabetics 5 days prior when symptoms started Discussed with pharm Continue subcut insulin Check urine ketones Monitor BMP hbA1c 9 Hypertension Continue home dose of losartan/ hydrochlorothiazide Will monitor Obesity Needs counseling regarding Lifestyle modification and weight loss Sleep apnea CPAP nightly Hyperlipidemia On fenofibrate Replete hypophosphatemia and monitor DVT prophylaxis SCDs for now. Ambulate PT/OT Disposition Med/tele Full code I spent a total of 50 minutes coordinating, documenting and providing care for this patient excluding time spent in performance of separately billed services Admission and Anticipated Discharge Date Admission Date: July 13, 2023 Subjective Patient seen and examined Per RN, had urinary retention overnight and had to be straight cath Based on patient, he ascribed to the retention to difficulty getting up due to abd pain He reports upper abd pain around surgical site. Reports this only happens when he tries to sit up Denied nausea, vomiting Denied fever, chills, chest pain, cough, SOB Physical Exam Constitutional: + well hydrated and + obese; no acute di stress Eyes: PERRL, conjunctivae normal, anicteric sclerae ENMT: external ear and nose normal, oropharynx normal Respiratory: normal respiratory effort, lungs clear to auscultation Cardiovascular: Rate/Rhythm: regular rhythm S1 S2. Tachycardic 101 Gastrointestinal (Abdomen): Soft, normal bowel sounds, mild tenderness around surgical site. YADY drain in situ Musculoskeletal: No pedal edema Neurologic: PERRL, EOMI, accommodation nl, no face palsy, no dysarthria Psychiatric: A+Ox3, euthymic affect Results & Data Results & Data Vital Signs (Past 12 Hours) Vital Signs Temp Pulse Pulse Pulse Resp BP Pulse Ox 07/15/23 08:02 37.2 C 101 H 18 151/78 H 90 07/15/23 07:00 101 H 07/15/23 03:59 36.7 C 98 H 18 130/79 92 07/14/23 23:35 36.9 C 97 H 16 131/53 L 92 07/14/23 23:10 105 H 27 H 96 07/14/23 22:47 97 H O2 Del Method 07/15/23 08:02 Room Air 07/15/23 07:00 07/15/23 03:59 Room Air 07/14/23 23:35 Room Air 07/14/23 23:10 07/14/23 22:47 Laboratory Results Abnormal lab results 07/14/23 07/14/23 07/14/23 Range/Units 15:11 16:37 17:19 WBC (4.8-10.8) K/ul Hgb (14.0-18.0) g/dl MCHC (32.0-36.0) g/dL VBG pH 7.30 L (7.36-7.41) Glucose 220 H (70-99(Fasting)) mg/dl POC Glucose 237 H 187 H (70-99) mg/dl Calcium (8.6-10.3) mg/dl Phosphorus (2.5-4.9) mg/dl Urine Ketones (Negative) 07/14/23 07/14/23 07/15/23 Range/Units 20:56 22:23 00:10 WBC (4.8-10.8) K/ul Hgb (14.0-18.0) g/dl MCHC (32.0-36.0) g/dL VBG pH (7.36-7.41) Glucose 182 H (70-99(Fasting)) mg/dl POC Glucose 193 H 163 H (70-99) mg/dl Calcium (8.6-10.3) mg/dl Phosphorus (2.5-4.9) mg/dl Urine Ketones (Negative) 07/15/23 07/15/23 07/15/23 Range/Units 03:46 08:55 09:56 WBC 12.91 H (4.8-10.8) K/ul Hgb 13.4 L (14.0-18.0) g/dl MCHC 31.8 L (32.0-36.0) g/dL VBG pH (7.36-7.41) Glucose 207 H (70-99(Fasting)) mg/dl POC Glucose 171 H 192 H (70-99) mg/dl Calcium 8.4 L (8.6-10.3) mg/dl Phosphorus 1.8 L (2.5-4.9) mg/dl Urine Ketones (Negative) 07/15/23 07/15/23 Range/Units 12:01 Unknown WBC (4.8-10.8) K/ul Hgb (14.0-18.0) g/dl MCHC (32.0-36.0) g/dL VBG pH (7.36-7.41) Glucose (70-99(Fasting)) mg/dl POC Glucose 169 H (70-99) mg/dl Calcium (8.6-10.3) mg/dl Phosphorus (2.5-4.9) mg/dl Urine Ketones 1+ H (Negative)
[2023-07-15 10:30] LABS: Hematocrit (blood only) 42.1 % (42.0-52.0); Hemoglobin 13.4 g/dl (14.0-18.0); Mean Corpuscular Hemoglobin 27.4 pg (25.0-34.0); Mean Corpuscular Hgb Conc 31.8 g/dL (32.0-36.0); Mean Corpuscular Volume 86.1 fL (80.0-100.0); Mean Platelet Volume 9.6 fL (9.4-12.4); Platelet Count 311 K/uL (130-400); RDW Coefficient of Variation 14.3 % (11.5-14.5); RDW Standard Deviation 45.3 fL (36.4-46.3); Red Blood Count 4.89 M/uL (4.70-6.10); White Blood Count 12.91 K/ul (4.8-10.8)
--- NOTE | 2023-07-15 10:33 | Pharmacy Report ---
Pharmacy Glycemic Short Note 2 - Date of Service July 15, 2023 - Glycemic Short BSG Results (Last 24 hours): 07/14/23 07/14/23 07/14/23 11:09 15:11 16:37 Glucose 220 H POC Glucose 166 H 237 H 07/14/23 07/14/23 07/14/23 17:19 20:56 22:23 Glucose 182 H POC Glucose 187 H 193 H 07/15/23 07/15/23 07/15/23 00:10 03:46 08:55 Glucose POC Glucose 163 H 171 H 192 H OUTPATIENT ANTIDIABETIC REGIMEN: * Damon Maloney * A1c 9.0% 07/14/23 ASSESSMENT: 07/15 * Patient received total of 27 units of insulin yesterday, of which 15 units were basal * Fasting BSG elevated at 192 mg/dL - will increase to 20 units of basal this AM * Continue same CF/CR for now - may need to tighten however once PO intake improves 07/14 * Patient admitted with acute cholecystitis, s/p cholecystectomy. * Initial BSGs in the 170s, labs earlier today with low bicarb 18/anion gap 15- some initial concern for SAPKA * Post op bicarb has normalized as well and anion gap closed, VBG was slightly acidotic 7.30 * Discussed with hospitalist, will continue with subq insulin, fluids for now and monitor * Tightened correction factor/carb ratio and gave 1x dose of lantus- will need further assessment in the AM PLAN FOR INPATIENT GLYCEMIC CONTROL: * Hold outpatient oral diabetes medications * Basal insulin * Lantus 20 units daily * Bolus insulin * NovoLog per scale ACHS or Q6hrs while NPO * Goal Range: Low 110 mg/dL - High 140 mg/dL * Correction Factor: 25 mg/dL/unit * Nutritional / Prandial insulin per carb ratio of 1 unit per 10 grams CHO consumed
[2023-07-15 10:51] LABS: BUN Creatinine Ratio 18.8 (10-20); Calcium 8.4 mg/dl (8.6-10.3); Creatinine Clr Calc Pharmacy 209.3 ml/min; Est GFR (African American) 134.8 ml/min; Est GFR (Non-African American) 116.3 ml/min; Magnesium 1.8 mg/dl (1.7-2.4); Phosphorus 1.8 mg/dl (2.5-4.9); Potassium 3.8 mmol/L (3.5-5.1)
[2023-07-15] MEDS ORDERED: POTASSIUM PHOS 3 MMOL/1 ML INFUSION IV STA (13:46)
[2023-07-15] MEDS: POTASSIUM PHOSPHATE 24 MMOL in SODIUM CHLORIDE 0.9% 500 ML IV ONE (15:21)
[2023-07-15 15:44] LABS: Albumin Level 3.2 gm/dl (3.4-5.0); Bilirubin Direct 0.1 mg/dl (0-0.2); Bilirubin,Total 0.5 mg/dl (0.2-1.0); Total Protein 6.8 gm/dl (6.0-8.3)
[2023-07-15] MEDS: guaiFENesin SUGAR FREE 200 MG/10 ML UDC PO PRN (17:19)
[2023-07-15] MEDS: TAMSULOSIN HCL 0.4 MG CAP PO SCH (21:16)
[2023-07-16 07:19] LABS: Hematocrit (blood only) 41.8 % (42.0-52.0); Hemoglobin 13.7 g/dl (14.0-18.0); Mean Corpuscular Hemoglobin 27.8 pg (25.0-34.0); Mean Corpuscular Hgb Conc 32.8 g/dL (32.0-36.0); Mean Platelet Volume 9.4 fL (9.4-12.4); Platelet Count 290 K/uL (130-400); RDW Standard Deviation 43.9 fL (36.4-46.3); Red Blood Count 4.92 M/uL (4.70-6.10); White Blood Count 9.31 K/ul (4.8-10.8)
[2023-07-16 07:41] LABS: Albumin Level 3.2 gm/dl (3.4-5.0); BUN Creatinine Ratio 15.2 (10-20); Bilirubin Direct 0.1 mg/dl (0-0.2); Bilirubin,Total 0.4 mg/dl (0.2-1.0); Calcium 8.4 mg/dl (8.6-10.3); Creatinine Clr Calc Pharmacy 223.8 ml/min; Est GFR (African American) 137.2 ml/min; Est GFR (Non-African American) 118.4 ml/min; Potassium 3.8 mmol/L (3.5-5.1); Total Protein 6.7 gm/dl (6.0-8.3)
[2023-07-16] MEDS: LANTUS PER UNIT CHARGE SC SCH (09:21)
--- NOTE | 2023-07-16 09:55 | Urology Consultation ---
Date of Consultation July 16, 2023 Assessment & Plan (1) Urinary retention: Urinary retention most likely related to anesthetic effect. As he gets further out from surgery this should continue to improve. In the meantime, I would recommend maintaining him on tamsulosin. Catheter should stay in for 5 to 7 days for bladder rest. If he is discharged, he can have a voiding trial in the urology office. Urine culture was notable for infection. He has been on appropriate antibiotics. These should continue for approximately a 7-day course total. I also recommend that he work on bowel regimen and try to normalize behavior as much as possible such as standing and ambulating. (2) Hematuria: Hematuria most likely related to trauma from catheter placement. If this persists after catheter is removed, we can discuss hematuria workup History of Present Illness Reason for Consultation: Urinary retention Attending Physician: Helena Gomes MD History of Present Illness This is a 43-year-old male currently hospitalized s/p laparoscopic cholecystectomy on 07/14/2023. Postoperatively, he was unable to void and required CIC multiple times for high volumes in the bladder. Eventually, Sepulveda catheter was placed on 07/16 as he continued to not be able to void. Urology was consulted regarding urinary retention Patient reports never seeing urology in the past. He denies any history of hematuria or dysuria. He has no history of urologic surgery. He has no history of urinary retention. He has never been on medications for the prostate, although was started on tamsulosin while in the hospital. He typically does not have issues with constipation but has not had a bowel movement in a couple days. He denies any family history of malignancy, although he thinks his father had episodes of urinary retention. Urine sample was obtained on 07/13 and was notable for bacteria, eventually growing E. coli. He has been on ciprofloxacin which should provide appropriate coverage based on sensitivities. Labs reviewed: 07/16/2023: WBC 9.31, creatinine 0.66, glucose 150 07/13/2023: Urinalysis negative for leukocyte esterase, 4+ bacteria, greater than 30 epithelial cells. Urine culture growing E. coli Allergies Allergy/AdvReac Type Severity Reaction Status Date / Time Penicillins Allergy Severe THROAT/FACE Verified 07/13/23 21:46 SWELLS iodine Allergy Unknown CAN'T Unverified 07/13/23 21:46 REMEMBER Home Medications Medication Instructions Recorded Confirmed Type qzheokht-bvdmlrob-oxwso acid 400 1 tab PO DAILY 07/22/21 07/13/23 History mcg-vit K 20 mcg-lycop 300 mcg tablet (Men's One Daily) dulaglutide 0.75 mg/0.5 mL 0.75 mg subcut WK 07/13/23 07/13/23 History subcutaneous pen injector (Trulicity) empagliflozin 25 mg tablet 25 mg PO QAM 07/13/23 07/13/23 History (Jardiance) fenofibrate nanocrystallized 145 145 mg PO QAM 07/13/23 07/13/23 History mg tablet losartan 100 1 tab PO DAILY 07/13/23 07/13/23 History mg-hydrochlorothiazide 25 mg tablet oxycodone 5 mg tablet 5 - 10 mg (1 - 2 x 5 mg) PO 07/15/23 Rx .[id number] PRN pain, for initial therapy, max 6 tabs per day #15 tabs Patient History Medical History Sleep apnea Periodic limb movement disorder Morbid obesity Diabetes mellitus Lumbar radiculopathy Hyperglycemia High blood pressure Social History Smoking Status: Former smoker Second Hand Exposure: No; Do You Dip or Chew Tobacco: No; Hx Alcohol Use: Yes Alcohol type: beer Hx Substance Use: No Preferred Language: Albanian Communication Ability: Effective Clinical Physician Assistant Required: No Beliefs That Will Affect Care: None Current Living Situation: Spouse and Family Feels Safe at Home: Yes Assistive Devices: CPAP Review of Systems Review of Systems: 12 point review of systems negative exce pt for otherwise indicated. Physical Exam Constitutional: well developed and well nourished; no acute distress Eyes: + anicteric sclerae; pupils not irregula r Respiratory: normal respiratory effort; no respiratory distress, does not use accessory muscles and no cough Cardiovascular: well perfused Gastrointestinal (Abdomen): Inspection/Auscultation: abdomen normal to inspection; abdomen not distended Musculoskeletal: Extremities: extremities normal to inspection Skin: normal turgor; no rashes and no lesions Neurologic: moves all extremities and awake Psychiatric: Orientation: alert and oriented x 3 Genitourinary: Sepulveda catheter draining clear yellow urine Results & Data Vital Signs (Past 12 Hours) Vital Signs Temp Pulse Pulse Pulse Resp BP Pulse Ox 07/16/23 08:24 101 H 07/16/23 07:13 36.6 C 101 H 18 150/90 H 93 07/16/23 04:24 36.7 C 103 H 16 170/83 H 90 07/16/23 01:39 07/15/23 23:34 36.7 C 102 H 18 153/81 H 90 07/15/23 22:15 07/15/23 22:14 102 H O2 Del Method O2 Flow Rate 07/16/23 08:24 07/16/23 07:13 Room Air 07/16/23 04:24 Nasal Cannula 1 07/16/23 01:39 Room Air 07/15/23 23:34 Room Air 07/15/23 22:15 CPAP 07/15/23 22:14 PG Care Time/CCT Total # of Minutes Spent Total Time Spent with Patient: Total time spent is greater than 50% in coordination of care (as documented) at patient's floor/unit and/or counseling patient: Coding Level of Care Code 74881 OP VST NEW MOD 45 MIN Diagnoses Urinary retention R33.9 Hematuria R31.9
[2023-07-16] MEDS ORDERED: POLYETHYLENE (MIRALAX) 17 GM PACK PO PRN (10:14)
[2023-07-16] MEDS: POLYETHYLENE (MIRALAX) 17 GM PACK PO SCH (10:17)
--- NOTE | 2023-07-16 10:30 | XRay Report ---
XR chest 1V portable HISTORY: 43 years-old Male Assess lungs. Cough acute cough COMPARISON: 07/13/2023 TECHNIQUE: AP view of the chest FINDINGS: Cardiac silhouette is enlarged. There is no pneumothorax, large pleural effusion or lobar airspace co nsolidation. Bones appear grossly intact. IMPRESSION: No acute process ACT 112: Negative or not required by law. The above report was generated using voice recognition software. It may contain grammatical, syntax o r spelling errors. Electronically signed by: Matt Mckeon M.D. 07/16/2023 10:29 AM
[2023-07-16] MEDS: DOCUSATE SODIUM/SENNA 50/8.6MG TAB PO SCH (11:07)
--- NOTE | 2023-07-16 11:52 | Hospitalist Progress Note ---
Date of Service July 16, 2023 Assessment & Plan (1) Acute cholecystitis: Plan: 43-year-old male with past medical history significant for type 2 diabetes, hyperlipidemia, obstructive sleep apnea on CPAP, hypertension, obesity, periodic limb movement disorder presents with abdominal pain and found to have acute cholecystitis. Patient reported abd pain over last 4 days, initially right sided and then epigastric, worsened, not improved with ibuprofen and antacids, associated with nausea and vomiting Acute cholecystitis Abdominal pain LFTs okay CT abd showed acute cholecystitis Gallbladder ultrasound showed cholelithiasis Patient was evaluated by Gen surg and taken to OR this morning S/p laparoscopic cholecystectomy Post op diagnosis was Acute Gangrenous Cholecystitis POD#2 Continue IV ciprofloxacin and Flagyl. Will switch to po on discharge Tolerating diet well Pain control Ensure regular BM. Constipation may have been contributing to urinary retention Urinary Retention Pineda placed Urology consulted and recs noted Continue flomax on dc Will do voiding trial prior to dc. If fails, dc on pineda to follow up with Uro outpatient Diabetes mellitus Hold home medications Continue subcut insulin Monitor BMP [id number] 9 Hypertension Continue home dose of losartan/ hydrochlorothiazide Will monitor Pain control Obesity Needs counseling regarding Lifestyle modification and weight loss Sleep apnea CPAP nightly Hyperlipidemia On fenofibrate Monitor electrolytes DVT prophylaxis Hep sq. Encouraged to Ambulate Awaiting PT/OT eval Disposition Med/tele Full code I spent a total of 45 minutes coordinating, documenting and providing care for this patient excluding time spent in performance of separately billed services Admission and Anticipated Discharge Date Admission Date: July 13, 2023 Subjective Patient seen and examined Having urinary retention since after surgery. Required some straight cath Pineda ordered this morning Reports surgical site pain is better controlled Denied nausea, vomiting, passing flatus He reported constipation/no BM since OR at the time of my evaluation. However, had 2 BM shortly after per RN prior to getting bowel regimen Reports some cough, dry Denied SOB Has not ambulated/moved around since OR due to feeling pain on trying to get up Physical Exam Constitutional: + well hydrated and + obese; no acute di stress Eyes: PERRL, conjunctivae normal, anicteric sclerae ENMT: external ear and nose normal, oropharynx normal Respiratory: normal respiratory effort, lungs clear to auscultation Cardiovascular: Rate/Rhythm: regular rate and regular rhythm S1 S2 Gastrointestinal (Abdomen): normal bowel sounds, soft, nontender, no hepatosplenomegaly Musculoskeletal: No pedal edema Neurologic: PERRL, EOMI, accommodation nl, no face palsy, no dysarthria Psychiatric: A+Ox3, euthymic affect Genitourinary: Pineda in situ Results & Data Results & Data Vital Signs (Past 12 Hours) Vital Signs Temp Pulse Pulse Pulse Resp BP Pulse Ox 07/16/23 08:24 101 H 07/16/23 07:13 36.6 C 101 H 18 150/90 H 93 07/16/23 04:24 36.7 C 103 H 16 170/83 H 90 07/16/23 01:39 O2 Del Method O2 Flow Rate 07/16/23 08:24 07/16/23 07:13 Room Air 07/16/23 04:24 Nasal Cannula 1 07/16/23 01:39 Room Air Laboratory Results Abnormal lab results 07/15/23 07/15/23 07/15/23 Range/Units 14:59 17:16 21:05 Hgb (14.0-18.0) g/dl Hct (42.0-52.0) % Glucose (70-99(Fasting)) mg/dl POC Glucose 144 H 133 H (70-99) mg/dl Calcium (8.6-10.3) mg/dl Albumin 3.2 L (3.4-5.0) gm/dl 07/16/23 07/16/23 Range/Units 06:51 08:05 Hgb 13.7 L (14.0-18.0) g/dl Hct 41.8 L (42.0-52.0) % Glucose 150 H (70-99(Fasting)) mg/dl POC Glucose 129 H (70-99) mg/dl Calcium 8.4 L (8.6-10.3) mg/dl Albumin 3.2 L (3.4-5.0) gm/dl
[2023-07-16 12:35] LABS: Magnesium 1.8 mg/dl (1.7-2.4); Phosphorus 2.3 mg/dl (2.5-4.9)
[2023-07-16] MEDS: HEPARIN SOD 5,000 UNIT/0.5 ML VIAL SQ SCH (15:46)
--- NOTE | 2023-07-16 16:34 | Surgery Progress Note ---
Date of Service July 16, 2023 Assessment & Plan (1) Acute cholecystitis: Plan: He is status post laparoscopic cholecystectomy and appears to be doing quite well from a surgical standpoint. He is on a regular diet. He is ambulating and his pain is well-controlled. Plans were to discharge him home with the drain in place. (2) Urinary retention: Plan: He has been seen by urology with recommendation for catheter remaining for 5 to 7 days after insertion. He likely will be discharged with a catheter in place. Continue Flomax and outpatient follow-up with urology. Admission and Anticipated Discharge Date Admission Date: July 13, 2023 Subjective He is tolerating a low fiber diet. He has been ambulating. He tells me he was seen by physical therapy and Occupational Therapy and cleared for discharge. His main issue currently is that of urinary retention. He has been seen by urology with plans for catheter remaining for 5 to 7 days. Pain is well controlled. No nausea. Passing flatus and had bowel movement since surgery. Physical Exam Constitutional: + morbidly obese; not in distress Respiratory: normal respiratory effort, lungs clear to auscultation Cardiovascular: RRR, no murmur, no edema Gastrointestinal (Abdomen): Inspection/Auscultation: abdomen normal to inspection, normal bowel sounds, + abdominal surgical incision (clean) and + abdominal surgical drain present (serosanguinous); abdomen not distended Percussion/Palpation: abdomen soft; abdomen nontender Neurologic: awake; no focal motor deficits Psychiatric: A+Ox3, euthymic affect Results & Data Vital Signs (Past 12 Hours) Vital Signs Temp Pulse Pulse Resp BP Pulse Ox O2 Del Method 07/16/23 16:09 36.8 C 106 H 19 148/84 H 93 Room Air 07/16/23 08:24 101 H 07/16/23 07:13 36.6 C 101 H 18 150/90 H 93 Room Air Laboratory Results 07/16/23 07/16/23 07/15/23 Range/Units 08:05 06:51 21:05 WBC 9.31 (4.8-10.8) K/ul RBC 4.92 (4.70-6.10) M/uL Hgb 13.7 L (14.0-18.0) g/dl Hct 41.8 L (42.0-52.0) % MCV 85.0 (80.0-100.0) fL MCH 27.8 (25.0-34.0) pg MCHC 32.8 (32.0-36.0) g/dL RDW Std Deviation 43.9 (36.4-46.3) fL RDW Coeff of Wood 14.0 (11.5-14.5) % Plt Count 290 (130-400) K/uL MPV 9.4 (9.4-12.4) fL Sodium 136 (136-145) mmol/L Potassium 3.8 (3.5-5.1) mmol/L Chloride 102 (98-107) mmol/L Carbon Dioxide 27 (21-32) mmol/L Anion Gap 7 (3-11) BUN 10 (6-23) mg/dl Creatinine 0.66 (0.6-1.4) mg/dl Est Cr Clr Drug Dosing 223.8 ml/min Est GFR ( Amer) 137.2 ml/min Est GFR (Non-Af Amer) 118.4 ml/min BUN/Creatinine Ratio 15.2 (10-20) Glucose 150 H (70-99(Fasting)) mg/dl POC Glucose 129 H 133 H (70-99) mg/dl Calcium 8.4 L (8.6-10.3) mg/dl Phosphorus 2.3 L (2.5-4.9) mg/dl Magnesium 1.8 (1.7-2.4) mg/dl Total Bilirubin 0.4 (0.2-1.0) mg/dl Direct Bilirubin 0.1 (0-0.2) mg/dl AST 27 (13-39) U/L ALT 28 (7-52) U/L Alkaline Phosphatase 49 (34-104) U/L Total Protein 6.7 (6.0-8.3) gm/dl Albumin 3.2 L (3.4-5.0) gm/dl 07/15/23 Range/Units 17:16 WBC (4.8-10.8) K/ul RBC (4.70-6.10) M/uL Hgb (14.0-18.0) g/dl Hct (42.0-52.0) % MCV (80.0-100.0) fL MCH (25.0-34.0) pg MCHC (32.0-36.0) g/dL RDW Std Deviation (36.4-46.3) fL RDW Coeff of Wood (11.5-14.5) % Plt Count (130-400) K/uL MPV (9.4-12.4) fL Sodium (136-145) mmol/L Potassium (3.5-5.1) mmol/L Chloride (98-107) mmol/L Carbon Dioxide (21-32) mmol/L Anion Gap (3-11) BUN (6-23) mg/dl Creatinine (0.6-1.4) mg/dl Est Cr Clr Drug Dosing ml/min Est GFR ( Amer) ml/min Est GFR (Non-Af Amer) ml/min BUN/Creatinine Ratio (10-20) Glucose (70-99(Fasting)) mg/dl POC Glucose 144 H (70-99) mg/dl Calcium (8.6-10.3) mg/dl Phosphorus (2.5-4.9) mg/dl Magnesium (1.7-2.4) mg/dl Total Bilirubin (0.2-1.0) mg/dl Direct Bilirubin (0-0.2) mg/dl AST (13-39) U/L ALT (7-52) U/L Alkaline Phosphatase (34-104) U/L Total Protein (6.0-8.3) gm/dl Albumin (3.4-5.0) gm/dl
[2023-07-17 06:52] LABS: Hematocrit (blood only) 45.1 % (42.0-52.0); Hemoglobin 14.2 g/dl (14.0-18.0); Mean Corpuscular Hemoglobin 27.4 pg (25.0-34.0); Mean Corpuscular Hgb Conc 31.5 g/dL (32.0-36.0); Mean Corpuscular Volume 87.1 fL (80.0-100.0); Mean Platelet Volume 9.4 fL (9.4-12.4); Platelet Count 327 K/uL (130-400); RDW Coefficient of Variation 13.8 % (11.5-14.5); RDW Standard Deviation 44.5 fL (36.4-46.3); Red Blood Count 5.18 M/uL (4.70-6.10); White Blood Count 10.01 K/ul (4.8-10.8)
[2023-07-17 07:09] LABS: BUN Creatinine Ratio 14.9 (10-20); Calcium 8.6 mg/dl (8.6-10.3); Creatinine Clr Calc Pharmacy 220.5 ml/min; Est GFR (African American) 136.4 ml/min; Est GFR (Non-African American) 117.7 ml/min; Magnesium 1.8 mg/dl (1.7-2.4); Phosphorus 2.6 mg/dl (2.5-4.9); Potassium 3.9 mmol/L (3.5-5.1)
[2023-07-17] MEDS: LANTUS PER UNIT CHARGE SC SCH (09:37)
--- NOTE | 2023-07-17 10:22 | Discharge Summary ---
Date of Service July 17, 2023 Admission HPI Per Admitting Provider 43-year-old male with past medical history significant for type 2 diabetes, hyperlipidemia, obstructive sleep apnea on CPAP, hypertension, obesity, periodic limb movement disorder presents with abdominal pain and found to have acute cholecystitis. Patient states since last 4 days having abdominal pain. Initially pain was located in the right upper quadrant. And later moved to the epigastric region. Thought indigestion took antacids. The pain was not improving. Then he took ibuprofen couple of times the day before yesterday . And he woke up yesterday with the pain resolved. But again woke up at 4 AM today with the pain. Also with nausea and vomiting. At this time pain is located lower abdomen. As the pain was not improving came to the ER. He was sweating today. Denies any headache. No dizziness. No blurred visions. No earache or runny nose. No sore throat. No cough. No chest pain. No shortness of breath. Urine is very dark. No diarrhea or constipation. Before this episode he was ambulating and climbing steps okay. Currently resting comfortably and hemodynamically stable. Past medical history. As mentioned above Past surgical history. Vasectomy Social history. . Quit smoking in 2005. Alcohol occasional. No drug use. Family history. Father had heart disorder. Hypertension. Obesity. Mother had hypertension. Brother has asthma. Daughter has asthma. Admission Exam Per Admitting Provider General- Not in distress Head- atraumatic Eyes- PERRL. ENT- oropharynx clear Neck- supple, no JVD. Lungs- clear to auscultation no wheezing or crackles. Heart- regular rhythm; no murmur, no gallop. Abdomen- normal bowel sounds, soft, diffuse tender no distension or guarding or distension Extremities- mild pretibial edema, no erythema seen. Neuro- alert, oriented x 3; PERRL, no facial palsy; no dysarthria; moves extremities. Skin- warm & dry Principal Diagnosis Acute Cholecystitis Laparoscopic cholecystectomy Urinary retention Urinary tract infection Discharge Exam Constitutional + well hydrated and + obese; no acute distress Eyes PERRL, conjunctivae normal, anicteric sclerae ENMT external ear and nose normal, oropharynx normal Respiratory normal respiratory effort, lungs clear to auscultation Cardiovascular Rate/Rhythm: regular rate and regular rhythm S1 S2 Gastrointestinal (Abdomen) normal bowel sounds, soft, nontender, no hepatosplenomegaly Drain in situ Neurologic PERRL, EOMI, accommodation nl, no face palsy, no dysarthria Psychiatric A+Ox3, euthymic affect Genitourinary Pineda in situ Discharge Data Allergies Allergy/AdvReac Type Severity Reaction Status Date / Time Penicillins Allergy Severe THROAT/FACE Verified 07/13/23 21:46 SWELLS iodine Allergy Unknown CAN'T Unverified 07/13/23 21:46 REMEMBER Consultations 07/13/23 22:29 ED Decision to Admit Stat 07/13/23 22:54 Consult General Surgery Stat 07/16/23 07:16 Consult Urology Routine Procedures Performed Operation Date: 07/14/23 07:00 Actual Procedures p Laparoscopic Cholecystectomy(Not Applicable) - Ramon Amor, Ordered Studies 07/13/23 20:20 CT abd pelvis IV con only Stat 07/13/23 22:27 US GB [US gallbladder] Stat Hospital Course (1) Acute cholecystitis: 43-year-old male with past medical history significant for type 2 diabetes, hyperlipidemia, obstructive sleep apnea on CPAP, hypertension, obesity, periodic limb movement disorder presents with abdominal pain and found to have acute cholecystitis. Patient reported abd pain over last 4 days, initially right sided and then epigastric, worsened, not improved with ibuprofen and antacids, associated with nausea and vomiting Acute cholecystitis Abdominal pain CT abd showed acute cholecystitis Gallbladder ultrasound showed cholelithiasis Patient was evaluated by Gen surg and taken to OR this morning S/p laparoscopic cholecystectomy Post op diagnosis was Acute Gangrenous Cholecystitis POD#3 Was on IV ciprofloxacin and Flagyl. This was changed to po to complete treatment at home Tolerating diet well Surgeon provided instructions regarding drain Urinary Retention Urinary tract infection Started on flomax Urologist evaluated and recommended discharging on pineda Patient to follow up with urology outpatient for voiding trial Urine culture grew E coli Antibiotics above will cover this as well based on sensitivities Diabetes mellitus Continue home medications HbA1c 9 Provided Dm education Hypertension Continue home dose of losartan/ hydrochlorothiazide BP trends high Advised to keep home BP log for PCP on follow up Obesity Needs counseling regarding Lifestyle modification and weight loss Sleep apnea CPAP nightly Hyperlipidemia On fenofibrate Total Time Total Time Spent Total Time Spent (In Minutes): 35 Total Time Includes: Examination of the Patient, Discharge Planning, Medication Reconciliation and Communication With Other Providers Discharge Plan Discharge Items Patient Disposition: Home - Self-Care Reason For Visit: ACUTE CHOLECYSTITIS, ELEVATED BP Discharge Diagnosis: Acute Cholecystitis Laparoscopic cholecystectomy Urinary retention Urinary tract infection Activity: Per Instructions section Lifting: No more than 10 pounds Bathing Comment: may shower; no soaking in tubs/pools x 2 weeks Exercise/Sports: Wait until after follow-up appointment Driving/Machine Use: no driving while taking narcotics for pain Non-emergency contact: Primary Care Provider and Surgeon Call non-emergency contact if: you have any medication questions, your symptoms worsen, you have a fever, your temperature is above 101.5, your wound has increased redness, your wound has increased drainage and your wound pain has increased Follow-up/Referrals: Ramon Amor DO [Physician] - (please call to schedule follow up in clinic within 1-2 weeks ) Juan Gonzalez MD [Physician] - (call for follow up within 1 week) Michi Moreno MD [Primary Care Provider] - (Date & Time 07/19/2023 11:00 AM Provider Michi Moreno MD Department Family Practice [facility] ) Diet: Regular and Carb Consistent or DM2 Addtl Attending Provider Instructions: Mr Butler You presented to the hospital with abdominal pain. You were evaluated and managed for the above listed diagnoses. You had your gall bladder removed. You also had urinary retention requiring pineda catheter placement. Please ensure follow up with Urology for removal of pineda and management of this. Please continue oral antibiotics to complete treatment. You were started on flomax for the urinary retention. Please ensure follow up with Surgeon as well as your Primary Doctor. Keep a log of your home BP measurement and take it along for your family doctor's visit It was a pleasure taking care of you. Addtl [employer] Provider Instructions: Instructions from the Surgeon: You may purchase Tylenol and/or Ibuprofen over the counter if needed for additional pain control over the next few days. Take per manufacturers instructions You may remove your outer surgical dressings on 07/16/23. You will have small white bandages on underneath that are over your incisions. You may shower with these on. They will tend to fall off on their own within 7-10 days. You have a surgical drain in place. Please care for it as you have been instructed prior to discharge from the hospital. Empty drain 2-3x/daily and record output. Once output less than 20cc/day you may call the office for possible removal. Pending Studies at Discharge: Yes Studies:: surgical pathology Stand-Alone Forms: My [facility], Smoking Cessation Medications and DC Order Prescriptions: New oxycodone 5 mg tablet 5 - 10 mg PO .[id number] PRN (Reason: pain, for initial therapy, max 6 tabs per day) Qty: 15 0RF tamsulosin 0.4 mg Capsule 0.4 mg PO HS Qty: 30 0RF ciprofloxacin HCl 500 mg tablet 500 mg PO BID 5 Days Qty: 10 0RF metronidazole 500 mg tablet 500 mg PO Q8H 5 Days Qty: 15 0RF Continued Men's One Daily 400-20-300 mcg Tablet 1 tab PO DAILY losartan-hydrochlorothiazide 100-25 mg tablet 1 tab PO DAILY fenofibrate nanocrystallized 145 mg tablet 145 mg PO QAM Jardiance 25 mg tablet 25 mg PO QAM Trulicity 0.75 mg/0.5 mL pen injector 0.75 mg SUBCUT WK Discharge Orders: Discharge Order (Routine); Ordered 07/17/23 Ordered By: Helena Gomes Admission Data Admit Date/Time: 07/13/23 23:48 Attending Provider: Helena Gomes I. Admit Provider: Mina Echols Primary Care Provider: Michi Moreno Other Providers: Mina Echols; Ramon Amor; Juan Gonzalez Other Interventions: Discharge Summary Assessment (RN) Last Done: 07/17/23 10:37
--- NOTE | 2023-07-18 06:22 | Electrocardiogram Report ---
Test Reason : Blood Pressure : / mmHG Vent. Rate : 106 BPM Atrial Rate : 106 BPM P-R Int : 152 ms QRS Dur : 098 ms QT Int : 378 ms P-R-T Axes : 066 039 042 degrees QTc Int : 502 ms Sinus tachycardia Otherwise normal ECG When compared with ECG of 13-JUL-2023 19:00, No significant change was found Confirmed by Jamal Munoz ([id number]) on 07/18/2023 6:21:57 AM Referred By: REFERRED SELF Confirmed By:Jamal Munoz
== END 2023-07-17 11:35 | disposition home or self-care (01) | DRG 418 ==
LOC: ED 18:46 → EDINP 23:48 → 2N 07-14 13:44

== ENCOUNTER 2023-08-01 08:01 | Observation (INO) ==
--- OUTSIDE RECORDS SUMMARY | 2023-08-01 08:15 | External Medical Summary | Summary of Care ---
Author Name Unknown Organization [facility] Address [address] [facility] [address] Phone [phone] Care Team Providers Care Waste Machine Tender Name Role Phone Michi Moreno MD Primary Care Provider [phone] Reason for Visit * Reason Onset Date Comments Hospital Follow-Up 07/28/2023 [facility] 07/27 Encounter Details Date Type Department Care Team (Late st Contact Info) Description 07/28/2023 Telephone Ancillary [facility] [address] [facility] [place] [address] Annie Boyd, RN Hospital Follow-Up ([facility] 07/27) Allergies Active Allergy Reactions Criticality Noted Date Comments Ivp Dye Nausea/vomiting Medium 12/13/2006 Nausea and vomiting on administration IV dye for CT scan of abdomen documented as of this encounter (statuses as of 07/28/2023) Medications Medication Sig Dispensed Refills Start Date End Date Status Multiple Vitamins-Iron (MULTI-DAY PLUS IRON) TABS Take 1 Tab by mouth daily. 0 Active Methocarbamol 500 MG Oral Tablet (Robamol) [...] A WEEK 4 mL 0 07/07/2023 Active FreeStyle Belkis 3 Sensor Use as directed. 1 Each 3 07/18/2023 Active FreeStyle Belkis 3 [place] Device Use as directed 1 Each 3 07/18/2023 Active oxyCODONE HCl 5 MG Oral Tablet (Oxy IR) Take 1 Tablet by mouth every 6 hours as needed. 1-2 tablets every 4-6 hours as needed 0 07/15/2023 Active Tamsulosin HCl 0.4 MG Oral Capsule (Flomax) Take 1 Capsule by mouth in the morning. 0 07/17/2023 Active metFORMIN HCl ER 500 MG Oral Tablet Extended Release 24 Hour (Glucophage XR) TAKE 4 TABLETS BY MOUTH ONCE DAILY WITH A MEAL 360 Tablet 0 07/20/2023 Active Cefuroxime Axetil 500 MG Oral Tablet (Ceftin) Take 1 Tablet by mouth in the morning and 1 Tablet before bedtime. 0 07/27/2023 4 Active Metoprolol Tartrate 25 MG Oral Tablet (Lopressor) Take 1 Tablet by mouth in the morning and 1 Tablet before bedtime. 0 07/27/2023 Active metroNIDAZOLE 500 MG Oral Tablet (Flagyl) Take 1 Tablet by mouth in the morning and 1 Tablet at noon and 1 Tablet before bedtime. 0 07/27/2023 4 Active documented as of this encounter (statuses as of 07/28/2023) Active Problems Problem Noted Date Diagnosed Date HTN, goal below 130/80 03/03/2021 Type 2 diabetes mellitus wit h hemoglobin A1c goal of less than 7.0% 09/05/2020 Dyslipidemia 09/05/2020 KELLIE on CPAP 05/16/2019 Periodic limb movement disorder (PLMD) 9 Super obese 11/11/2009 Overview: Per Obesity Protocol, #19 ICD-10 update of inactive term documented as of this encounter (statuses as of 07/28/2023) Resolved Problems Problem Noted Date Diagnosed Date [...] as of this encounter (statuses as of 07/28/2023) Immunizations Name Administration Dates Next Due Pneumococcal Polysaccharide PPV23 (Pneumovax) TDAP (age 10 and older)(Boostrix) 03/07/2015,02/2015 documented as of this encounter Social History Tobacco Use Types Packs/Day Years Used Date Smoking Tobacco: Former Cigarettes Q uit: 04/29/2006 Smokeless Tobacco: Former Comments:smoked [...] encounter Miscellaneous Notes * Telephone Encounter - Annie Boyd RN - 07/28/2023 2:11 PM EST Transitions of Care Note Reason for Referral:Recent Admission Phone visit for follow up: ROGER Admitted to: [facility], Date: 07/24 Discharged to: home, Date: 07/27 Diagnosis driving hospitalization: small bowel obstruction Possible UTI Uncontrolled hypertension Source/Contact: Patient SUBJECTIVE Consent: Verbal consent for review of hospital discharge: Yes REVIEW OF SYSTEMS Patient/Other Reports: Current patient/caregiver problems or concerns: none at this time CV: Denies problems Pulmonary: Denies problems Chills/Sweats/Fever:Denies chills/sweats Denies fever Appetite:Denies problems such as nausea, vomiting, burning, decreased appetite Current diet: currently low fiber Bowel: denies problems Bladder: denies problems Wound (If applicable): still has YADY drain. Reports he has an appt on 08/03 with surgeon but if there is no drainage by Tuesday he can call them to go in for a nurse visit and get the drain pulled Pain:Denies Sleep:Denies problems FUNCTIONAL STATUS: ADL'S: Needs Assistance With:N/A as pt is independent IADL'S: Needs Assistance With:N/A as pt is independent Cognitive and Mental Health: denies problems, alert and oriented x 3, and able to communicate, understand instructions, process information. MEDICATION RECONCILIATION Medications: Discharge med list reviewed with patient or caregiver New medication(s) filled since hospitalization- cefuroxime, metronidazole, metoprolol Reports all medications taken as prescribed. Denies side effects OBJECTIVE ASSESSMENT Medication Risk Assessment: No risks identified Did patient fail outpatient treatment? No Discharge instructions available for review? Yes PLAN Symptom Monitoring Interventions:Member/caregiver education - signs and symptoms to contact PrimaryCare (DO NOT DELETE-Three sahu symptoms patient is to report to PCP) 1. Acute abdominal pain 2. N/V 3. Fever Sexual Assault Response CoordinatorFilm Or Videotape Editor of Care interventions/Action Plan: Medication reconciliation and 5 - 7 day follow-up with PCP in place - Date: 08/02 Educated on role of ROGER completed with patient/caregiver. Educated patient/caregiver on patient right to have input on ROGER plan of care. Verification of Home Health/DME if indicated: NO Identified Care Gaps: Yes Care Gaps closed this call: Appointment made or confirmed and Transition of Care follow-up communication Re-evaluation of Plan of Care and progress towards goals achievement: Patient education this visit: Verbal, as above Plan to follow-up as previously scheduled, instructed to call Primary Care Provider with change in symptoms or as needed before next follow-up, discharge needs met, verbalizes understanding and agrees with plan. Annie Boyd, RN documented in this encounter Plan of Treatment Upcoming Encounters Date Type Department Care Team (Late st Contact Info) Description 08/03/2023 11:00 AM EST Office Visit [facility] [address] [place] [address] Michi Moreno MD [address] [place] [address] 10/25/2023 10:40 AM EDT Office Visit [facility] Disorders Ctr [facility] [address] [place] [id number] Simona Lopez DO [address] [place] [address] 05/21/2024 10:40 AM EST Office Visit [facility] [address] [place] [address] Michi Moreno MD [address] [place] [address] Health Maintenance Due Date Last Done Comments HIV Screening 02/28/1995 Hepatitis C Screening 02/28/1998 Pneumococcal Vaccine: Pediatrics (0 to 5 Years) and At-Risk Patients (6 to 64 Years) (2 of 2 - PCV) 12/06/2020 12/07/2019 Depression Screening 09/10/2021 09/10/2020 COVID-19 Vaccine ( - 2022-24 season) 2023 Influenza Vaccine (FLU shot) (#1) 2023 HbA1c 11/16/2023 05/17/2023, 05/12/2021, 03/09/2021, Additional history exists Albumin/Creatinine Ratio 05/17/2024 05/17/2023 B-12 05/17/2024 05/17/2023, 08/29, 06/11/2019 GFR 05/17/2024 05/17/2023, 02/27, 12/07/2019, Additional history exists Diabetic Eye Exam 07/20/2024 07/20/2023 Diabetic Foot Exam 07/20/2024 07/20/2023 DTaP,Tdap,and Td Vaccines (4 - Td or [...] filedocumented as of this encounter Care Teams Waste Machine Tender Relationship Specialty Start Date End Date Michi Moreno MD [address] [facility] [place] [address] PCP - General Family Medicine 09/10/20 documented as of this encounter
--- OUTSIDE RECORDS SUMMARY | 2023-08-01 08:15 | External Medical Summary | Summary of Care ---
Author Name Unknown Organization [facility] Address [address] [facility] [place] [place] [address] Phone [phone] Care Team Providers Care Production Planning Supervisor Name Role Phone Michi Moreno MD Primary Care Provider [phone] Reason for Visit * Reason Onset Date Comments FYI 07/28/2023 Info for upcomin g visit Encounter Details Date Type Department Care Team (Late st Contact Info) Description 07/28/2023 Telephone Family Practice [facility] [address] [facility] [place] [address] Michi Moreno MD [address] [place] [address] FYI (Info for upcoming visit) Allergies Active Allergy Reactions Criticality Noted Date [...] Each 3 07/18/2023 Active FreeStyle Belkis 3 [place] Device Use as directed 1 Each 3 [...] 07/28/2023) Immunizations Name Administration Dates Next Due Hepatitis [...] encounter Miscellaneous Notes * Telephone Encounter - Michi Moreno MD - 07/28/2023 2:40 PM EST Tks * Telephone Encounter - Annie Boyd RN - 07/28/2023 2:[address] Moreno, I spoke to pt to follow up on his recent hospitalization. He has an appt with you next Tue. There are a few items he asked to be passed on to you in preparation for the appt. -he has not taken Trulicity since prior to his first hospitalization on 07/13. He plans to restart on 08/02 -he had an episode of tingling to the outside of both thighs one night in the hospital. Reports IV Tylenol helped. He is worried about neuropathy. I discussed the s/s of neuropathy with him. He reports he still has good feeling in his lower extremities and does not have pain in them either. -he was due for an A1C but had this drawn during his first hospitalization and it was 9. He really does not want to have any more labs drawn at this time. documented in this encounter Plan of Treatment Upcoming Encounters Date Type Department Care Team (Late st Contact Info) Description 08/03/2023 11:00 AM EST Office Visit Family Practice [facility] [address] [place] [address] Michi Moreno MD [address] [place] [address] 10/25/2023 10:40 AM EDT Office Visit Sleep Disorders Ctr [facility] [address] [place] [phone] Simona Lopez, [address] [place] [address] 05/21/2024 10:40 AM EST Office Visit Family [facility] [address] [place] [address] Michi Moreno MD [address] [place] [address] Health Maintenance Due Date Last Done Comments HIV Screening 02/28/1995 Hepatitis C Screening 02/28/1998 Pneumococcal Vaccine: Pediatrics (0 to 5 Years) and At-Risk Patients (6 to 64 Years) (2 of 2 - PCV) 12/06/2020 12/07/2019 Depression Screening 09/10/2021 09/10/2020 COVID-19 Vaccine (2022- season) 2023 Influenza Vaccine (FLU shot) (#1) [...] filedocumented as of this encounter Care Teams Production Planning Supervisor Relationship Specialty Start Date End Date Michi Moreno MD [address] [place] [address] PCP - General Family Medicine 09/10/20 documented as of this encounter
--- OUTSIDE RECORDS SUMMARY | 2023-08-01 08:15 | External Medical Summary | Summary of Care ---
Author Name Unknown Organization [facility] Address [address] [facility] [place] [address] Phone [phone] Care Team Providers Care Precision Instrument Maker Name Role Phone Michi Moreno MD Primary Care Provider [phone] Reason for Visit * Reason Onset Date Comments FYI 07/28/2023 Info for upcomin g visit Encounter Details Date Type Department Care Team (Late st Contact Info) Description 07/28/2023 Telephone Family Practice [facility] [address] [facility] [place] [address] Michi Moreno MD [address] [...] Each 3 07/18/2023 Active FreeStyle Belkis 3 [place] Device Use as directed 1 Each 3 [...] 11:00 AM EST Office Visit Family Practice [facility] [address] [place] [address] Michi Moreno MD [address] [place] [address] 10/25/2023 10:40 AM EDT Office Visit Sleep Disorders Ctr [facility] [address] [place] [phone] Simona Lopez, [address] [place] [address] 05/21/2024 10:40 AM EST Office Visit Family [facility] [address] [place] [address] Michi Moreno MD [address] [place] [address] Health Maintenance Due Date Last Done Comments [...] filedocumented as of this encounter Care Teams Precision Instrument Maker Relationship Specialty Start Date End Date Michi Moreno MD [address] [place] [address] PCP - General Family Medicine 09/10/20 documented as of this encounter
--- NOTE | 2023-08-01 08:30 | Emergency Department Note ---
History of Present Illness General Chief complaint: Facial Injury/Pain Stated complaint: SWOLLEN TONGUE Time Seen by Provider: 08/01/23 08:15 History of Present Illness Maximum Pain Intensity: 2 NAME: NOA FONSECA AGE: 43 SEX: M : 1980 ARRIVES VIA: Walk-In INFORMANT: Patient ED PROVIDER(S): SUMAYA Hughes, Kb Stout, The patient is a 43-year-old male who arrives to the emergency department for evaluation of right-sided tongue swelling that he noticed upon waking. He reports he had no symptoms last night when going to bed. He denies any new foods prior to sleeping. The patient was recently admitted for a cholecystectomy, and then readmitted for a postsurgical bowel obstruction. He states he was discharged 07/27 with metronidazole, cefuroxime and oxycodone. He also is on losartan-hydrochlorothiazide. He does state a previous dental abscess that was treated with penicillin, and then had an anaphylactic reaction. He denies any difficulty swallowing, chest pain, shortness of breath, abdominal pain, nausea, vomiting at this time. Home Medications Medication Instructions Recorded Confirmed Type dulaglutide 0.75 mg/0.5 mL 0.75 mg subcut WK 07/13/23 08/01/23 History subcutaneous pen injector (Trulicity) fenofibrate nanocrystallized 145 145 mg PO QAM 07/13/23 08/01/23 History mg tablet oxycodone 5 mg tablet 5 - 10 mg (1 - 2 x 5 mg) PO 07/15/23 08/01/23 Rx [id number] PRN pain, for initial therapy, max 6 tabs per day #15 tabs tamsulosin 0.4 mg capsule 0.4 mg PO HS #30 caps 07/17/23 08/01/23 Rx [id number] carb-vit K 1 tab PO HS 07/23/23 08/01/23 History 18 mg iron-400 mcg-500 mg tablet metoprolol tartrate 25 mg tablet 25 mg PO BID #60 tabs 07/27/23 08/01/23 Rx cetirizine 10 mg capsule 10 mg PO BID 7 days #14 caps 08/02/23 Rx epinephrine 0.3 mg/0.3 mL 0.3 mg (0.3 mL) IM Q4H PRN 08/02/23 Rx injection, auto-injector (EpiPen) anaphylaxis #2 ea famotidine 20 mg tablet (Pepcid) 20 mg PO BID 7 days #14 tabs 08/02/23 Rx hydrochlorothiazide 12.5 mg tablet 12.5 mg PO DAILY #30 tabs 08/02/23 Rx prednisone 20 mg tablet See Taper PO DAILY 3 days #7 tabs 08/02/23 Rx Allergies Allergy/AdvReac Type Severity Reaction Status Date / Time Penicillins Allergy Severe THROAT/FACE Verified 07/23/23 23:19 SWELLS iodine Allergy Intermediate MRI Verified 07/23/23 23:19 CONTRAST-CAN TAKE IF MANUALLY PUSHED ONLY. Past Med/Surg History Medical History Sleep apnea Periodic limb movement disorder Morbid obesity Diabetes mellitus Lumbar radiculopathy Hyperglycemia High blood pressure Surgical History S/P cholecystectomy Family History Other Angioedema Social History Smoking Status: Former smoker Tobacco Type: Cigarettes Second Hand Exposure: No; Do You Dip or Chew Tobacco: No; Hx Alcohol Use: Yes Alcohol type: hard liquor Hx Substance Use: No Preferred Language: Hungarian Communication Ability: Effective Visual Impairment: No Limitations Program Arranger Required: No Beliefs That Will Affect Care: None Current Living Situation: Spouse Feels Safe at Home: Yes Assistive Devices: None Physical Exam Vital Signs Vital Signs - 24 hr 08/01/23 08:06 08/01/23 08:28 08/01/23 08:36 Temperature 36.5 C Temperature Source Temporal Artery Scan Pulse Rate 102 H 92 H Pulse Rate [Apical] 92 H Pulse Rhythm [Apical] Respiratory Rate 20 15 Respiratory Effort / Characteristics Non-Labored Respiratory Depth Normal Blood Pressure 130/83 Blood Pressure [Left Arm] Blood Pressure Mean 98 Blood Pressure Mean [Left Arm] Pulse Oximetry 98 93 Oxygen Delivery Method Room Air Room Air Oxygen Flow Rate Sepsis Recent Fever Within 48 Hours No Sepsis New/Unexplained Change in Mental Status N/A Sepsis Action Taken by Nursing No Action Required 08/01/23 09:17 08/01/23 10:04 08/01/23 10:05 Temperature Temperature Source Pulse Rate 98 H Pulse Rate [Apical] 100 H Pulse Rhythm [Apical] Regular Respiratory Rate 16 Respiratory Effort / Characteristics Respiratory Depth Blood Pressure Blood Pressure [Left Arm] 134/77 Blood Pressure Mean Blood Pressure Mean [Left Arm] 96 Pulse Oximetry 93 88 L 95 Oxygen Delivery Method Room Air Room Air Nasal Cannula Oxygen Flow Rate 2 Sepsis Recent Fever Within 48 Hours Sepsis New/Unexplained Change in Mental Status Sepsis Action Taken by Nursing VITALS: Vitals are noted on the nurse's note and reviewed by myself. Vital signs stable. GENERAL: 43-year-old male, in no acute distress, nondiaphoretic, well-developed well-nourished. SKIN: The skin was without rashes, erythema, edema, or bruising. There are postsurgical wounds on the right abdomen from a recent cholecystectomy. HEAD: Normocephalic atraumatic. EYES: Pupils equal round and reactive to light and accommodation. Conjunctivae without injection, sclerae without icterus. Extraocular movements intact. NOSE: Patent, turbinates without inflammation or discharge. No sinus tenderness. MOUTH: Mucous membranes moist. Tonsils are not enlarged. Pharynx without erythema or exudate. Uvula midline. Airway patent. Right side of the tongue is edematous, there is no sublingual edema, there does not appear to be any dental infection present. NECK: Supple without nuchal rigidity. No lymphadenopathy. No thyromegaly. Cervical spine is nontender. No JVD. HEART: Regular rate and rhythm without murmurs gallops or rubs. LUNGS: Clear to auscultation bilaterally without wheezes, rales or rhonchi. No retractions or accessory muscle use. ABDOMEN: Positive bowel sounds x 4. Soft, nontender, without masses or organomegaly. Ariza sign negative. No guarding or rebound tenderness. MUSCULOSKELETAL: No muscle atrophy, erythema, or edema noted. Full range of motion without joint tenderness in all extremities. No tenderness to palpation. Normal gait. Strength 5/5 throughout. NEURO: Patient was alert and oriented to person place and time. No focal neurological deficits. Course Administered Medications Discontinued Medications Dexamethasone Sodium Phosphate (DexamethasonePf 10 Mg/Ml Vial) 10 mg IV NOW ONE Stop: 08/01/23 08:26 Last Admin: 08/01/23 08:40 Dose: 10 mg Documented By: ALEKSANDAR Diphenhydramine HCl (Diphenhydramine 50 Mg/Ml Vial) 50 mg IV NOW STA Stop: 08/01/23 08:26 Last Admin: 08/01/23 08:40 Dose: 50 mg Documented By: ALEKSANDAR Diphenhydramine HCl (Diphenhydramine 50 Mg/Ml Vial) 50 mg IV Q6H LOIS Stop: 08/31/23 14:59 Last Admin: 08/02/23 09:24 Dose: 50 mg Documented By: Admin: 08/02/23 03:04 Dose: 50 mg Documented By: Admin: 08/01/23 20:57 Dose: 50 mg Documented By: Admin: 08/01/23 15:54 Dose: 50 mg Documented By: TC Epinephrine HCl (Epinephrine Inj 1 Mg/Ml Amp) 0.3 mg IM NOW STA Stop: 08/01/23 08:26 Last Admin: 08/01/23 08:40 Dose: 0.3 mg Documented By: ALEKSANDAR Famotidine (Pepcid 20mg Iv Push) 20 mg in 5 mls @ 2.5 mls/min IV NOW STA Stop: 08/01/23 08:26 Last Admin: 08/01/23 08:40 Dose: 2.5 mls/min Documented By: ALEKSANDAR Famotidine (Pepcid 20mg Iv Push) 20 mg in 5 mls @ 2.5 mls/min IV Q12 LOIS Stop: 08/31/23 20:59 Last Admin: 08/02/23 09:28 Dose: 2.5 mls/min Documented By: Admin: 08/01/23 21:04 Dose: 2.5 mls/min Documented By: NARGIS Methylprednisolone 40 mg/ (Syringe) 0.64 mls @ 1.5 mls/min IV Q8H LOIS Stop: 08/31/23 14:59 Last Admin: 08/02/23 08:03 Dose: 1.5 mls/min Documented By: Admin: 08/01/23 22:43 Dose: 1.5 mls/min Documented By: Admin: 08/01/23 15:53 Dose: 1.5 mls/min Documented By: TC Insulin Aspart (Insulin Aspart Per Unit Charge) 0 units SC ACHS LOIS Stop: 08/31/23 13:29 Last Admin: 08/02/23 12:46 Dose: 8 units Documented By: YOUNG Co-signed By: NERISSA Admin: 08/02/23 09:22 Dose: 7 units Documented By: YOUNG Co-signed By: DEAN Admin: 08/01/23 20:52 Dose: 4 units Documented By: NARGIS Co-signed By: ISMAEL Admin: 08/01/23 18:12 Dose: 5 units Documented By: GRACIELA Co-signed By: MARGIE Admin: 08/01/23 14:53 Dose: Not Given Documented By: ALEKSANDAR Insulin Glargine (Lantus Per Unit Charge) 0 - 10 units SQ BID [facility]; Protocol Stop: 08/31/23 20:59 Last Admin: 08/02/23 09:23 Dose: 5 units Documented By: YOUNG Co-signed By: DEAN Admin: 08/01/23 20:52 Dose: 10 units Documented By: NARGIS Co-signed By: [facility] Metoprolol Tartrate (Metoprolol Tartrate 25 Mg Tab) 25 mg PO BID LOIS Stop: 08/31/23 20:59 Last Admin: 08/02/23 09:25 Dose: 25 mg Documented By: Admin: 08/01/23 20:53 Dose: 25 mg Documented By: NARGIS Tamsulosin HCl (Tamsulosin Hcl 0.4 Mg Cap) 0.4 mg PO HS LOIS Stop: 08/31/23 20:59 Last Admin: 08/01/23 20:53 Dose: 0.4 mg Documented By: NARGIS Medical Decision Making Differential Diagnosis Anaphylaxis, angioedema, wound, infection, as well as other pathologies Medical Records Attestation: I reviewed the patient's medical records. Home Medications Current Medication List: was personally reviewed by wa Laboratory Data Leukocytosis, 10.9, no electrolyte abnormalities, 08/02/23 05:45 08/02/23 05:45 Lab Results 08/01/23 08/01/23 Range/Units 08:42 10:03 WBC 10.99 H (4.8-10.8) K/ul RBC 5.67 (4.70-6.10) M/uL Hgb 15.3 (14.0-18.0) g/dl Hct 48.1 (42.0-52.0) % MCV 84.8 (80.0-100.0) fL MCH 27.0 (25.0-34.0) pg MCHC 31.8 L (32.0-36.0) g/dL RDW Std Deviation 43.7 (36.4-46.3) fL RDW Coeff of Wood 14.3 (11.5-14.5) % Plt Count 405 H (130-400) K/uL MPV 9.1 L (9.4-12.4) fL Immature Gran % (Auto) 0.9 % Neut % (Auto) 61.3 % Lymph % (Auto) 23.5 % [place] % (Auto) 8.5 % Eos % (Auto) 5.2 % Baso % (Auto) 0.6 % Neut # (Auto) 6.74 H (1.40-6.50) K/uL Lymph # (Auto) 2.58 (1.20-3.40) K/uL [place]ford # (Auto) 0.93 H (0.11-0.59) K/uL Eos # (Auto) 0.57 H (0.00-0.50) K/uL Baso # (Auto) 0.07 (0.00-0.20) K/uL Immature Gran # (Auto) 0.10 (0.01-0.20) K/uL Sodium 136 (136-145) mmol/L Potassium 3.8 (3.5-5.1) mmol/L Chloride 101 (98-107) mmol/L Carbon Dioxide 29 (21-32) mmol/L Anion Gap 6 (3-11) BUN 9 (6-23) mg/dl Creatinine 0.75 (0.6-1.4) mg/dl Est Cr Clr Drug Dosing 185.3 ml/min Est GFR ( Amer) 130.2 ml/min Est GFR (Non-Af Amer) 112.4 ml/min BUN/Creatinine Ratio 12.0 (10-20) Glucose 112 H (70-99(Fasting)) mg/dl Calcium 9.3 (8.6-10.3) mg/dl Total Bilirubin 0.4 (0.2-1.0) mg/dl AST 26 (13-39) U/L ALT 25 (7-52) U/L Alkaline Phosphatase 62 (34-104) U/L Total Protein 8.0 (6.0-8.3) gm/dl Albumin 3.9 (3.4-5.0) gm/dl Globulin 4.1 H (2.5-4.0) gm/dl Albumin/Globulin Ratio 1.0 (0.9-2) C1 Esterase Inhibitor Cancelled Func C1 Esterase Inhib Cancelled Complem C1q Component Cancelled Complement C4 Cancelled Imaging Data Attestation: I personally reviewed and interpreted this imaging study as follows: My Impression: Initial x-ray interpretation per myself shows no acute cardiopulmonary abnormality. Will await formal radiology report. Radiologist's Impression: Chest X-Ray 08/01/23 08:25 XR chest 1V portable CLINICAL HISTORY: allergic reaction TECHNIQUE: Single frontal radiograph of the chest was obtained. Comparison: Comparison is made to chest radiograph 07/23/2023 FINDINGS: No lines and tubes are seen. The cardiomediastinal silhouette is normal. The lungs are clear. No evidence of pleural effusion or pneumothorax. Incomplete evaluation of the left costophrenic angle. IMPRESSION: No acute chest disease. ACT 112: Negative or not required by law. Electronically signed by: Ervin Aparicio M.D. 08/01/2023 8:56 AM ECG Data Attestation: I personally reviewed and interpreted this ECG as follows: Indication: + other Rate (beats per minute): 95 Rhythm: + normal sinus Comparison ECG Date: from (07/26/23) Change: no significant change Blood Pressure Blood Pressure Findings: Normal blood pressure MDM Narrative The patient is a 43-year-old male who arrives emergency department for the above-stated complaint. Upon examination the patient does have a significant swelling of the right side of the tongue, with some slurred speech noted. The patient reports he was previously discharged from this facility for an emergent cholecystectomy, and then readmitted for a bowel obstruction. The patient was sent home on metronidazole, as well as cefuroxime. He does take an ARB, however he does not take an FOUZIA inhibitor. Upon examination it does appear to be an element of angioedema. A drug reaction is considered, however would not be selective to the right side of the mouth. A saline lock was placed, CBC, CMP, EKG were obtained. CBC, CMP were reassuring, EKG did show normal sinus rhythm at a rate of 95, with no significant change from the previous of June,. The patient was provided with IV doses of dexamethasone, famotidine, Benadryl, and an IM dose of epinephrine. The patient was watched for an extensive time. With very little improvement of his symptoms. Based on the patient's symptoms, and his likely difficult intubation should be required, I believe admission for airway observation is necessary. The patient was placed on 2 L nasal cannula due to hypoxia while sleeping. Patient does have a history of sleep apnea, and uses a CPAP at home. I contacted Dr. Rosales who recommended additional labs including a tryptase level, C4, C1 esterase inhibitor level, C1 esterase function level, as well as a C1q level. I spoke with the manager of case, who facilitated admission, [facility] Merino will take over care of the patient at this time. The patient's case was discussed with Dr. Stout, who agreed with my evaluation and treatment plan. Continuous hospital monitor: Order was placed for continuous hospital monitor. Patient was placed on the hospital monitor. Patient was noted to be in normal sinus rhythm at an initial rate of 91 bpm. Impression & Plan Angioedema Discharge Plan Visit Data Chief Complaint: Facial Injury/Pain Stated Complaint: SWOLLEN TONGUE ED Provider: Kb Stout ED Midlevel Provider: Porsche Mayo Discharge Problem: Angioedema Patient Disposition: Admitted As Inpatient Discharge Instructions Interventions: ED Discharge Assessment Last Done: 08/01/23 13:15
[2023-08-01] MEDS: EPINEPHrine INJ 1 MG/ML AMP IM STA (08:40)
[2023-08-01] MEDS: dexAMETHasone**PF** 10 MG/ML VIAL IV ONE (08:40)
[2023-08-01] MEDS: diphenhydrAMINE 50 MG/ML VIAL IV STA (08:40)
[2023-08-01] MEDS: FAMOTIDINE 20MG IV PUSH 20 MG/5 ML SYR IV STA (08:40)
--- NOTE | 2023-08-01 08:57 | XRay Report ---
XR chest 1V portable CLINICAL HISTORY: allergic reaction TECHNIQUE: Single frontal radiograph of the chest was obtained. Comparison: Comparison is made to chest radiograph 07/23/2023 FINDINGS: No lines and tubes are seen. The cardiomediastinal silhouette is normal. The lungs are clear. No evid ence of pleural effusion or pneumothorax. Incomplete evaluation of the left costophrenic angle. IMPRESSION: No acute chest disease. ACT 112: Negative or not required by law. Electronically signed by: Ervin Aparicio M.D. 08/01/2023 8:56 AM
[2023-08-01 09:01] LABS: Basophils # (auto) 0.07 K/uL (0.00-0.20); Basophils % (auto) 0.6 %; Eosinophils # (auto) 0.57 K/uL (0.00-0.50); Eosinophils % (auto) 5.2 %; Hematocrit (blood only) 48.1 % (42.0-52.0); Hemoglobin 15.3 g/dl (14.0-18.0); Immature Granulocytes % (auto) 0.9 %; Lymphocytes # (auto) 2.58 K/uL (1.20-3.40); Lymphocytes % (auto) 23.5 %; Mean Corpuscular Hgb Conc 31.8 g/dL (32.0-36.0); Mean Corpuscular Volume 84.8 fL (80.0-100.0); Mean Platelet Volume 9.1 fL (9.4-12.4); Monocytes # (auto) 0.93 K/uL (0.11-0.59); Monocytes % (auto) 8.5 %; Neutrophils # (auto) 6.74 K/uL (1.40-6.50); Neutrophils % (auto) 61.3 %; Platelet Count 405 K/uL (130-400); RDW Coefficient of Variation 14.3 % (11.5-14.5); RDW Standard Deviation 43.7 fL (36.4-46.3); Red Blood Count 5.67 M/uL (4.70-6.10); White Blood Count 10.99 K/ul (4.8-10.8)
[2023-08-01 09:14] LABS: Albumin Level 3.9 gm/dl (3.4-5.0); Bilirubin,Total 0.4 mg/dl (0.2-1.0); Calcium 9.3 mg/dl (8.6-10.3); Creatinine Clr Calc Pharmacy 185.3 ml/min; Est GFR (African American) 130.2 ml/min; Est GFR (Non-African American) 112.4 ml/min; Globulin 4.1 gm/dl (2.5-4.0); Potassium 3.8 mmol/L (3.5-5.1)
--- NOTE | 2023-08-01 10:50 | Emergency Department Note ---
ED Visit Note Physician Evaluation Note: Patient was seen in conjunction with the midlevel provider. Please see the midlevel provider note for full details of the patient's visit. I have personally evaluated and examined this patient. Patient presented to the ED with some tongue swelling to the right side of his tongue. Patient states he woke up today with this sensation this morning. On my evaluation the patient is in no acute distress. He does have some notable edema to the right side of his tongue. Patient does not have any stridor, he is tolerating his own secretions without issue. Patient has been on some antibiotics after recent hospital discharge including Flagyl and cefuroxime however he has been on these medications for several days and the swelling just developed this morning. He does not have any rash, denies any current shortness of breath. Case was discussed with allergy and immunology by the midlevel provider, additional blood tests were added to the patient's lab work. Patient was treated here in the ED with IV steroids, IV Benadryl, and intramuscular epinephrine without much improvement in the patient's tongue angioedema however he did not experience any worsening of symptoms or swelling. Given the patient's angioedema of the right side of the tongue without significant resolution, he will be admitted to the hospitalist service for overnight observation and further monitoring. Patient was placed for admission in stable condition. I agree with assessment and plan of Porsche Mayo NP. Kb Stout DO .
--- NOTE | 2023-08-01 12:28 | History & Physical Report ---
Date of Service August 01, 2023 Assessment & Plan (1) Angioedema: (2) Diabetes mellitus: (3) High blood pressure: (4) Sleep apnea: (5) Morbid obesity: Plan This is a 43-year-old male who has significant past medical history of T2DM, HTN, HLD, KELLIE on CPAP and periodic limb movement disorder who presents to ED secondary to right-sided tongue swelling prior to arrival. Angioedema admit to PCU unknown etiology, previous anaphylactic reaction to PCN ED provider discussed with allergy immunology Tryptase, C1, C4 ordered allergy immunology recommends follow up as outpatient IV solumedrol ordered q8, IV benadryl q6, IV pepcid 20mg BID monitor airway closely will hold antibiotics for now and discuss with surgery the need to continue given extensive course given the unilateral nature of the angioedema will also initiate CVA w/u, pt has no other overt neurological sx CT head ordered, Pt currently refusing MR brain CTA of H/N unable to be obtained at this time given contrast allergy, and wish to avoid further allergic reaction will await CT result S/P Cholecystectomy by Dr. Amor 07/14 S/P SBO YADY drain still in place will consult gen surg for removal HTN chronic, stable continue losartan-HCTZ Hyperlipidemia Resume ezetimibe as able BPH previous hx of urinary retention continue flomax DM II Last HbA1c 9.0 Continue insulin per protocol Monitor BGs Morbid obesity BMI 46 Other chronic conditions: Chronic back pain--no acute issue KELLIE on CPAP Past tobacco abuse DVT Px: Lovenox SQ Code Status Full code History of Present Illness Chief Complaint: Swelling of tongue prior to arrival. Primary Care Provider: Michi Moreno MD This is a 43-year-old male who has significant past medical history of T2DM, HTN, HLD, KELLIE on CPAP and periodic limb movement disorder who presents to ED secondary to right-sided tongue swelling prior to arrival. and son are at bedside who also help elicit history. Patient inpatient and outpatient charts were reviewed. Of significance he was recently hospitalized on 07/13 to 07/17 secondary to acute cholecystitis requiring laparoscopic cholecystectomy in setting of an acute gangrenous cholecystitis. He did require YADY drain placement which remains in place. He was treated with antibiotics. He was discharged home and unfortunately rehospitalized 07/24 to 07/27/2023 secondary to small bowel obstruction requiring NG tube placement. NG tube was eventually able to be removed and he was passing flatus and stool. There was initial concern for possible bile leak however HIDA scan was negative. His hospital course was complicated with hypertensive urgency. He again remained on IV ciprofloxacin and Flagyl. He was discharged home on a course of oral cefuroxime and Flagyl for additional 7 days. YADY drain remains in place with minimal output in the last 36 hours. He went to bed last night in his normal state of health. He woke up at approximately 3 AM and took a missed dose of Flagyl. When he woke up this morning he noted that the right side of his tongue was swollen, numb and he was having difficulty speaking. states his speech was slurred but denied any facial droop. He denies ever having this in the past. He does state that he had a prior allergic reaction to penicillin with anaphylaxis. He states this does not feel similar. He denies any difficulty swallowing, shortness breath or wheezing. He denies any fever, chills, sweats, lightheadedness, dizziness, chest pain, cough, nausea, vomiting, abdominal pain, change in bowel or urinary habits. Previous hospitalization he did have urinary retention requiring Sepulveda catheter placement and this has since resolved. In ED patient remained hemodynamically stable. He did require IM epinephrine injection, IV dexamethasone, diphenhydramine and famotidine. He feels his symptoms have improved slightly. He feels his tongue is slightly less swollen, but continues to remain enlarged. He does overall feel drowsy secondary to Benadryl which caused him to be slightly hypoxic requiring oxygen supplementation. Allergies Allergy/AdvReac Type Severity Reaction Status Date / Time Penicillins Allergy Severe THROAT/FACE Verified 07/23/23 23:19 SWELLS iodine Allergy Intermediate MRI Verified 07/23/23 23:19 CONTRAST-CAN TAKE IF MANUALLY PUSHED ONLY. Home Medications Medication Instructions Recorded Confirmed Type dulaglutide 0.75 mg/0.5 mL 0.75 mg subcut WK 07/13/23 08/01/23 History subcutaneous pen injector (Trulicity) empagliflozin 25 mg tablet 25 mg PO QAM 07/13/23 08/01/23 History (Jardiance) fenofibrate nanocrystallized 145 145 mg PO QAM 07/13/23 08/01/23 History mg tablet losartan 100 1 tab PO DAILY 07/13/23 08/01/23 History mg-hydrochlorothiazide 25 mg tablet oxycodone 5 mg tablet 5 - 10 mg (1 - 2 x 5 mg) PO 07/15/23 08/01/23 Rx .[id number] PRN pain, for initial therapy, max 6 tabs per day #15 tabs tamsulosin 0.4 mg capsule 0.4 mg PO HS #30 caps 07/17/23 08/01/23 Rx eqqfqvei-btu-mxsg-FA-Ca carb-vit K 1 tab PO HS 07/23/23 08/01/23 History 18 mg iron-400 mcg-500 mg tablet cefuroxime axetil 500 mg tablet 500 mg PO BID #14 tabs 07/27/23 08/01/23 Rx metoprolol tartrate 25 mg tablet 25 mg PO BID #60 tabs 07/27/23 08/01/23 Rx metronidazole 500 mg tablet 500 mg PO TID 7 days #21 tabs 07/27/23 08/01/23 Rx Past Med/Surg History Medical History Sleep apnea Periodic limb movement disorder Morbid obesity Diabetes mellitus Lumbar radiculopathy Hyperglycemia High blood pressure Surgical History S/P cholecystectomy Family History Other Angioedema Social History Smoking Status: Former smoker Tobacco Type: Cigarettes Second Hand Exposure: No; Do You Dip or Chew Tobacco: No; Hx Alcohol Use: Yes Alcohol type: beer Hx Substance Use: No Preferred Language: Honduran Communication Ability: Effective Visual Impairment: No Limitations Remedial Project Manager Required: No Beliefs That Will Affect Care: None Current Living Situation: Spouse Feels Safe at Home: Yes Assistive Devices: CPAP and Glasses Review of Systems Review of Systems: All systems reviewed & are unremarkable except as noted in HPI & below Physical Exam Physical Exam: Constitutional: WD/WN, vitals as above, NAD, sitting up in bed, pleasant, conversing easily Head: Normocephalic, Atraumatic Eyes: PERRL, conjunctivae normal, anicteric sclerae ENMT: external ear and nose normal, oropharynx normal Neck: trachea midline, no thyromegaly normal visual inspection Respiratory: normal respiratory effort, lungs clear to auscultation, no wheeze, rales, rhonchi. Normal insp/exp effort, no accessory muscle use Cardiovascular: RRR, no murmur, no edema Vessels: no JVD or carotid bruit Chest: normal inspection of chest Abdomen: normal bowel sounds, soft, nontender, no hepatosplenomegaly Musculoskeletal: no cyanosis or clubbing, extremities motor strength 5/5 Skin: no rashes, warm and dry normal turgor Neurologic: PERRL, EOMI, accommodation nl, no face palsy, no dysarthria CN's II-XI intact bilaterally and moves all extremities Psychiatric: A+Ox3, euthymic affect Lymphatic: no cervical or axillary lymphadenopathy : deferred Results & Data Results & Data Vital Signs (Past 12 Hours) Vital Signs Temp Pulse Pulse Resp BP BP Pulse Ox 08/01/23 12:08 100 H 14 97 08/01/23 10:05 95 08/01/23 10:04 100 H 16 134/77 88 L 08/01/23 09:17 98 H 93 08/01/23 08:36 92 H 08/01/23 08:28 92 H 15 93 08/01/23 08:06 36.5 C 102 H 20 130/83 98 O2 Del Method O2 Flow Rate 08/01/23 12:08 Nasal Cannula 3.5 08/01/23 10:05 Nasal Cannula 2 08/01/23 10:04 Room Air 08/01/23 09:17 Room Air 08/01/23 08:36 08/01/23 08:28 Room Air 08/01/23 08:06 Room Air Diagnostic Findings Chest X-Ray 08/01/23 08:25 XR chest 1V portable CLINICAL HISTORY: allergic reaction TECHNIQUE: Single frontal radiograph of the chest was obtained. Comparison: Comparison is made to chest radiograph 07/23/2023 FINDINGS: No lines and tubes are seen. The cardiomediastinal silhouette is normal. The lungs are clear. No evidence of pleural effusion or pneumothorax. Incomplete evaluation of the left costophrenic angle. IMPRESSION: No acute chest disease. ACT 112: Negative or not required by law. Electronically signed by: Ervin Aparicio M.D. 08/01/2023 8:56 AM Medications Administered Medication List Discontinued Medications Dexamethasone Sodium Phosphate (DexamethasonePf 10 Mg/Ml Vial) 10 mg IV NOW ONE Stop: 08/01/23 08:26 Last Admin: 08/01/23 08:40 Dose: 10 mg Documented By: ALEKSANDAR Diphenhydramine HCl (Diphenhydramine 50 Mg/Ml Vial) 50 mg IV NOW STA Stop: 08/01/23 08:26 Last Admin: 08/01/23 08:40 Dose: 50 mg Documented By: ALEKSANDAR Epinephrine HCl (Epinephrine Inj 1 Mg/Ml Amp) 0.3 mg IM NOW STA Stop: 08/01/23 08:26 Last Admin: 08/01/23 08:40 Dose: 0.3 mg Documented By: ALEKSANDAR Famotidine (Pepcid 20mg Iv Push) 20 mg in 5 mls @ 2.5 mls/min IV NOW STA Stop: 08/01/23 08:26 Last Admin: 08/01/23 08:40 Dose: 2.5 mls/min Documented By: ALEKSANDAR COVID-19 Results Results COVID-19 Adm Lab Results: RBC 5.67 M/uL (4.70-6.10) 08/01/23 WBC 10.99 K/ul (4.8-10.8) H 08/01/23 Hgb 15.3 g/dl (14.0-18.0) 08/01/23 Hct 48.1 % (42.0-52.0) 08/01/23 Plt Count 405 K/uL (130-400) H 08/01/23 Neutrophils (%) (Auto) 61.3 % 08/01/23 Lymphocytes (%) (Auto) 23.5 % 08/01/23 Monocytes # (Auto) 0.93 K/uL (0.11-0.59) H 08/01/23 Eosinophils # (Auto) 0.57 K/uL (0.00-0.50) H 08/01/23 Immature Granulocyte % (Auto) 0.9 % 08/01/23 Neutrophils # (Auto) 6.74 K/uL (1.40-6.50) H 08/01/23 Lymphocytes # (Auto) 2.58 K/uL (1.20-3.40) 08/01/23 Monocytes # (Auto) 0.93 K/uL (0.11-0.59) H 08/01/23 Eosinophils # (Auto) 0.57 K/uL (0.00-0.50) H 08/01/23 Basophils # (Auto) 0.07 K/uL (0.00-0.20) 08/01/23 Immature Granulocyte # (Auto) 0.10 K/uL (0.01-0.20) 4 Na 136 mmol/L (136-145) 08/01/23 K 3.8 mmol/L (3.5-5.1) 08/01/23 Cl 101 mmol/L (98-107) 08/01/23 CO2 29 mmol/L (21-32) 08/01/23 Anion Gap 6 (3-11) 08/01/23 BUN 9 mg/dl (6-23) 08/01/23 Creatinine 0.75 mg/dl (0.6-1.4) 08/01/23 BUN/Creatinine Ratio 12.0 (10-20) 08/01/23 Glucose Level 112 mg/dl (70-99(Fasting)) H 08/01/23 Ca 9.3 mg/dl (8.6-10.3) 08/01/23 Total Bilirubin 0.4 mg/dl (0.2-1.0) 08/01/23 AST/SGOT 26 U/L (13-39) 08/01/23 ALT/SGPT 25 U/L (7-52) 08/01/23 Alkaline Phosphatase 62 U/L (34-104) 08/01/23 Total Protein 8.0 gm/dl (6.0-8.3) 08/01/23 Albumin 3.9 gm/dl (3.4-5.0) 08/01/23 Globulin 4.1 gm/dl (2.5-4.0) H 08/01/23 Albumin/Globulin Ratio 1.0 (0.9-2) 08/01/23 Chest X-Ray 08/01/23 Code Status & VTE Plan Code Status FULL CODE Supervising Physician Co-Signing Physician Notes Pt was seen and examined by myself, Nora Merino MD on the day of service. Care was coordinated with Carol Hale PA-C. 43yoM s/p cholecystectomy on 07/14 with complicated post-op course including SBO and possible biliary drain leak which has since been ruled out by HIDA scan. Recently discharged home on 07/27 with po cefuroxime and flagyl. States he has been taking them as prescribed, last dose of medication was early this AM about 3AM and was the Flagyl. Woke up this AM and tried to eat, noted tingling and swelling on right side of tongue. Denies other neurological symptoms such as FUENTES, changes to vision, decreased sensation or loss of taste. Does not some slurred speech as a result of the tongue swelling and difficulty with eating. On exam, on the phone talking, no acute distress. Sensation grossly intact on right side of the face, able to wrinkle forehead, puff out cheeks. No dysarthria appreciated, some slight swelling noted to right tongue. No appreciable swelling to right side of face. Reportedly required 2L NC earlier, however was on RA at time of exam R tongue swelling- suspicious for allergic reaction, but will r/o acute CVA. Uncertain allergen at this time. Not on FOUZIA but on ARB. Possible culprit of cefuroxime, possible cross reactivity given penicillin allergy with noted anaphylactic-like symptoms? Will also hold flagyl given pt states that was most recent antibiotic he took very early this AM. Will also hold ARB (pt on combo losartan-hctz at home), though noted based on pathway less likely to cause angioedema compared to FOUZIA. Continue steroids, Benadryl, Pepcid as above. Pt received epinephrine in the ED. Appreciate General Surgery recs as to further need for antibiotics, currently on hold). Stroke workup, pt currently refusing brain MRI but agreeable to head CT. Also contrast allergy. Monitor BP with ARB on hold, will possibly need replacement agent for additional control. Monitor respiratory status closely. Consider further Allergy/Immunology input- c1 inhib itor def testing pending. Otherwise as above. I spent a total [id number] coordinating, documenting, and providing care for this patient excluding time spent in the performance of separately billed services (2) Diabetes mellitus Diabetes mellitus complication status: without complication Diabetes mellitus optometric coordinator insulin use: without residential use Diabetes mellitus type: type 2 Qualified Code(s): E11.9 - Type 2 diabetes mellitus without complications
--- NOTE | 2023-08-01 12:37 | CT Scan Report ---
CT head/brain wo con CLINICAL HISTORY: 43 years-old Male with r/o cva. Acute strokelike symptoms TECHNIQUE: Multiple axial CT images of the head were obtained without contrast. A dose lowering tech nique was utilized adhering to the principles of ALARA. CT DOSE: 703.85 mGy.cm COMPARISON: None. FINDINGS: Mildly motion degraded exam. No acute intracranial hemorrhage, midline shift, intracranial mass, hydr ocephalus, territorial ischemia or abnormal extra-axial collection. The calvarium is intact. The paranasal sinuses, mastoid air cells, and middle ear cavities are clear . IMPRESSION: No acute intracranial abnormality. ACT 112: Negative or not required by law. The above report was generated using voice recognition software. It may contain grammatical, syntax o r spelling errors. Electronically signed by: Matt Mckeon M.D. 08/01/2023 12:35 PM
[2023-08-01] MEDS ORDERED: ONDANSETRON INJ 2 MG/ML 2 ML VIAL IV PRN (13:14)
[2023-08-01] MEDS ORDERED: ALUMINUM/MAGNESIUM SUSP 30 ML UDC PO PRN (13:14)
[2023-08-01] MEDS ORDERED: PHARMACIST DISCHARGE MED REC CONSULT PRN (13:14)
[2023-08-01] MEDS ORDERED: CARBOHYDRATES FOR HYPOGLYCEMIA PO PRN (13:14)
[2023-08-01] MEDS ORDERED: GLUCOSE 10 TAB/TUBE PO PRN (13:14)
[2023-08-01] MEDS ORDERED: DEXTROSE 50% 50 ML SYRINGE IV PRN (13:14)
[2023-08-01] MEDS ORDERED: POLYETHYLENE (MIRALAX) 17 GM PACK PO PRN (13:14)
[2023-08-01] MEDS ORDERED: GLUCAGON FOR INJ 1 MG VIAL SQ PRN (13:14)
[2023-08-01] MEDS ORDERED: GLUCOSE 40% GEL 15 GM TUBE PO PRN (13:14)
[2023-08-01] MEDS ORDERED: ACETAMINOPHEN 325 MG TAB PO PRN (13:14)
[2023-08-01] MEDS ORDERED: MAGNESIUM HYDROXIDE SUSP 30 ML UDC PO PRN (13:14)
[2023-08-01] MEDS: INSULIN ASPART PER UNIT CHARGE SC SCH (14:53)
[2023-08-01] MEDS: methylPREDNISolone 40 MG in SYRINGE 0 ML IV SCH (15:53)
[2023-08-01] MEDS: diphenhydrAMINE 50 MG/ML VIAL IV SCH (15:54)
--- NOTE | 2023-08-01 16:43 | Electrocardiogram Report ---
Test Reason : Blood Pressure : / mmHG Vent. Rate : 095 BPM Atrial Rate : 095 BPM P-R Int : 138 ms QRS Dur : 096 ms QT Int : 392 ms P-R-T Axes : 059 028 032 degrees QTc Int : 492 ms Normal sinus rhythm Possible Old Septal infarct Left atrial enlargement Abnormal ECG When compared with ECG of 26-JUL-2023 09:01, Borderline Criteria for Septal infarct is now Present Confirmed by Michi Watt ([id number]) on 08/01/2023 4:43:30 PM Referred By: REFERRED SELF Confirmed By:Michi Watt
[2023-08-01] MEDS: LANTUS PER UNIT CHARGE SQ SCH (20:52)
[2023-08-01] MEDS: TAMSULOSIN HCL 0.4 MG CAP PO SCH (20:53)
[2023-08-01] MEDS: METOPROLOL TARTRATE 25 MG TAB PO SCH (20:53)
[2023-08-01] MEDS ORDERED: FAMOTIDINE 20MG IV PUSH 20 MG/5 ML SYR IV SCH (21:00)
[2023-08-01] MEDS: FAMOTIDINE 20MG IV PUSH 20 MG/5 ML SYR IV SCH (21:04)
[2023-08-02 06:06] LABS: Basophils # (auto) 0.04 K/uL (0.00-0.20); Basophils % (auto) 0.3 %; Eosinophils # (auto) 0.02 K/uL (0.00-0.50); Eosinophils % (auto) 0.1 %; Hematocrit (blood only) 46.3 % (42.0-52.0); Hemoglobin 14.7 g/dl (14.0-18.0); Immature Granulocytes # (auto) 0.12 K/uL (0.01-0.20); Immature Granulocytes % (auto) 0.8 %; Lymphocytes # (auto) 1.88 K/uL (1.20-3.40); Lymphocytes % (auto) 13.1 %; Mean Corpuscular Hgb Conc 31.7 g/dL (32.0-36.0); Mean Corpuscular Volume 85.1 fL (80.0-100.0); Mean Platelet Volume 9.3 fL (9.4-12.4); Monocytes # (auto) 0.56 K/uL (0.11-0.59); Monocytes % (auto) 3.9 %; Neutrophils # (auto) 11.72 K/uL (1.40-6.50); Neutrophils % (auto) 81.8 %; Platelet Count 393 K/uL (130-400); RDW Standard Deviation 43.1 fL (36.4-46.3); Red Blood Count 5.44 M/uL (4.70-6.10); White Blood Count 14.34 K/ul (4.8-10.8)
[2023-08-02 06:23] LABS: Albumin Level 3.7 gm/dl (3.4-5.0); BUN Creatinine Ratio 22.2 (10-20); Bilirubin,Total 0.4 mg/dl (0.2-1.0); Chol HDL Ratio 4.3 (0-5); Creatinine Clr Calc Pharmacy 216.7 ml/min; Est GFR (African American) 139.9 ml/min; Est GFR (Non-African American) 120.7 ml/min; Globulin 3.8 gm/dl (2.5-4.0); Potassium 4.1 mmol/L (3.5-5.1); Total Protein 7.5 gm/dl (6.0-8.3)
--- OUTSIDE RECORDS SUMMARY | 2023-08-02 06:42 | External Medical Summary | Summary of Care ---
Author Name Unknown Organization [facility] Address [address] [place] [place] [address] Phone [phone] Care Team Providers Care Carpet Loom Fixer Name Role Phone Michi Moreno MD Primary Care Provider [phone] Reason for Visit * Reason Comments eRx-Medication Refill Encounter Details Date Type Department Care Team (Late st Contact Info) Description 07/30/2023 Refill Family Practice [facility] [address] [place] [address] Michi Moreno MD [address] [place] [address] Type 2 diabetes mellitus with hemoglobin A1c goal of less than 7.0% ([facility]); Super obese Allergies Active Allergy Reactions Criticality Noted Date Comments Ivp Dye Nausea/vomiting Medium 12/13/2006 Nausea and vomiting on administration IV dye for CT scan of abdomen documented as of this encounter (statuses as of 08/01/2023) Medications Medication Sig Dispensed Refills Start Date [...] Each 3 07/18/2023 Active FreeStyle Belkis 3 Leck Kill Device Use as directed 1 Each 3 [...] as of this encounter (statuses as of 08/01/2023) Active Problems Problem Noted Date Diagnosed Date HTN, goal below 130/80 03/03/2021 Type 2 diabetes mellitus wit h hemoglobin A1c goal of less than 7.0% 09/05/2020 Dyslipidemia 09/05/2020 KELLIE on CPAP 05/16/2019 Periodic limb movement disorder (PLMD) 9 Super obese 11/11/2009 Overview: Per Obesity Protocol, #19 ICD-10 update of inactive term documented as of this encounter (statuses as of 08/01/2023) Resolved Problems Problem Noted Date Diagnosed Date [...] as of this encounter (statuses as of 08/01/2023) Immunizations Name Administration Dates Next Due Pneumococcal [...] encounter Miscellaneous Notes * Telephone Encounter - Abelardo Miller [facility] - 08/01/2023 12:17 PM EST Refused Prescriptions: Disp Refills Trulicity 0.75 MG/0.5ML Subcutaneous Solut*4 mL 0 Sig: INJECT 1 SYRINGE SUBCUTANEOUSLY ONCE A WEEKRefused By: ABELARDO MILLER for Refusal: Too soon--- documented in this encounter Plan of Treatment Upcoming Encounters Date Type Department Care Team (Late st Contact Info) Description 08/03/2023 11:00 AM EST Office Visit [facility] [address] [phone] Michi Moreno MD [address] [place] [address] 10/25/2023 10:40 AM EDT Office Visit [facility] [address] [phone] Simona Lopez DO [address] [place] [address] 05/21/2024 10:40 AM EST Office Visit [facility] [address] [place] [address] Michi Moreno MD [address] [place] [address] Health Maintenance Due Date Last Done Comments HIV Screening 02/28/1995 Hepatitis C Screening 02/28/1998 Pneumococcal Vaccine: Pediatrics (0 to 5 Years) and At-Risk Patients (6 to 64 Years) (2 of 2 - PCV) 12/06/2020 12/07/2019 Depression Screening 09/10/2021 09/10/2020 COVID-19 Vaccine (24 season) 2023 Influenza Vaccine (FLU shot) (#1) [...] obesity documented in this encounter Care Teams Carpet Loom Fixer Relationship Specialty Start Date End Date Michi Moreno MD [address] [place] [id number] PCP - General Family Medicine 09/10/20 documented as of this encounter
[2023-08-02 08:06] LABS: Estimated Average Glucose 194 mg/dl; Hemoglobin A1C 8.4 % (4.5-5.6)
[2023-08-02] MEDS ORDERED: LOSARTAN/HCTZ 50/12.5MG TAB PO SCH (09:00)
--- NOTE | 2023-08-02 11:24 | Surgery Progress Note ---
Date of Service August 02, 2023 Assessment & Plan (1) Angioedema: Plan: Pt is here with angioedema, which is now improved s/p lap darwin on 07/[address] arriaga he has no abdominal complaints. tolerating diet. + bowel function Ramon drain removed yesterday without issues Currently off abx Discussed no heavy lifting 20-25lbs over the next 2 weeks then may slowly increase as tolerates No need to follow up wiht us in the office this upcoming , may call with any questions/concerns as needed Admission and Anticipated Discharge Date Admission Date: August 01, 2023 Subjective Patient feeling well. No abdominal complaints. Feels like tongue swelling has improved. No pain/n/v. + gas/BMs. Tolerating diet. Physical Exam Physical Exam: awake/alert, sitting up in bed Gastrointestinal (Abdomen): Inspection/Auscultation: + abdominal surgical incision (c/d/i no signs of infection) Percussion/Palpation: abdomen soft; abdomen nontender Results & Data Vital Signs (Past 12 Hours) Vital Signs Temp Pulse Resp BP Pulse Ox O2 Del Method O2 Flow Rate 08/02/23 08:05 97.7 F 97 H 16 124/70 Nasal Cannula 2 08/02/23 03:41 97.3 F L 84 18 133/54 L 97 Nasal Cannula 2 PG Care Time/CCT Total # of Minutes Spent Total Time Spent with Patient: Total time spent is greater than 50% in coordination of care (as documented) at patient's floor/unit and/or counseling patient: Coding Level of Care Code None Diagnoses Angioedema T78.3XXA
--- NOTE | 2023-08-02 15:30 | Discharge Summary ---
Date of Service August 02, 2023 Admission HPI Per Admitting Provider This is a 43-year-old male who has significant past medical history of T2DM, HTN, HLD, KELLIE on CPAP and periodic limb movement disorder who presents to ED secondary to right-sided tongue swelling prior to arrival. and son are at bedside who also help elicit history. Patient inpatient and outpatient charts were reviewed. Of significance he was recently hospitalized on 07/13 to 07/17 secondary to acute cholecystitis requiring laparoscopic cholecystectomy in setting of an acute gangrenous cholecystitis. He did require YADY drain placement which remains in place. He was treated with antibiotics. He was discharged home and unfortunately rehospitalized 07/24 to 07/27/2023 secondary to small bowel obstruction requiring NG tube placement. NG tube was eventually able to be removed and he was passing flatus and stool. There was initial concern for possible bile leak however HIDA scan was negative. His hospital course was complicated with hypertensive urgency. He again remained on IV ciprofloxacin and Flagyl. He was discharged home on a course of oral cefuroxime and Flagyl for additional 7 days. YADY drain remains in place with minimal output in the last 36 hours. He went to bed last night in his normal state of health. He woke up at approximately 3 AM and took a missed dose of Flagyl. When he woke up this morning he noted that the right side of his tongue was swollen, numb and he was having difficulty speaking. states his speech was slurred but denied any facial droop. He denies ever having this in the past. He does state that he had a prior allergic reaction to penicillin with anaphylaxis. He states this does not feel similar. He denies any difficulty swallowing, shortness breath or wheezing. He denies any fever, chills, sweats, lightheadedness, dizziness, chest pain, cough, nausea, vomiting, abdominal pain, change in bowel or urinary habits. Previous hospitalization he did have urinary retention requiring Sepulveda catheter placement and this has since resolved. In ED patient remained hemodynamically stable. He did require IM epinephrine injection, IV dexamethasone, diphenhydramine and famotidine. He feels his symptoms have improved slightly. He feels his tongue is slightly less swollen, but continues to remain enlarged. He does overall feel drowsy secondary to Benadryl which caused him to be slightly hypoxic requiring oxygen supplementation. Admission Exam Per Admitting Provider Constitutional: WD/WN, vitals as above, NAD, sitting up in bed, pleasant, conversing easily Head: Normocephalic, Atraumatic Eyes: PERRL, conjunctivae normal, anicteric sclerae ENMT: external ear and nose normal, oropharynx normal Neck: trachea midline, no thyromegaly normal visual inspection Respiratory: normal respiratory effort, lungs clear to auscultation, no wheeze, rales, rhonchi. Normal insp/exp effort, no accessory muscle use Cardiovascular: RRR, no murmur, no edema Vessels: no JVD or carotid bruit Chest: normal inspection of chest Abdomen: normal bowel sounds, soft, nontender, no hepatosplenomegaly Musculoskeletal: no cyanosis or clubbing, extremities motor strength 5/5 Skin: no rashes, warm and dry normal turgor Neurologic: PERRL, EOMI, accommodation nl, no face palsy, no dysarthria CN's II-XI intact bilaterally and moves all extremities Psychiatric: A+Ox3, euthymic affect Lymphatic: no cervical or axillary lymphadenopathy : deferred Principal Diagnosis Angioedema of the tongue Discharge Exam Constitutional: WD/WN, vitals as above, NAD, sitting up in bed, pleasant, conversing easily Mouth; slight swelling present on the right side of the tongue; no stridor full Neck: trachea midline, no thyromegaly normal visual inspection Respiratory: Bilateral vesicular breath sounds Cardiovascular: RRR, no murmur, no edema Vessels: no JVD or carotid bruit Chest: normal inspection of chest Abdomen: Dressing clean dry and intact. Musculoskeletal: no cyanosis or clubbing, extremities motor strength 5/5 Skin: no rashes, warm and dry normal turgor Neurologic: PERRL, EOMI, accommodation nl, no face palsy, no dysarthria CN's II- XI intact bilaterally and moves all extremities Psychiatric: A+Ox3, euthymic affect Discharge Data Allergies Allergy/AdvReac Type Severity Reaction Status Date / Time Penicillins Allergy Severe THROAT/FACE Verified 07/23/23 23:19 SWELLS iodine Allergy Intermediate MRI Verified 07/23/23 23:19 CONTRAST-CAN TAKE IF MANUALLY PUSHED ONLY. Consultations 08/01/23 11:00 ED Decision to Admit Stat Ordered Studies 08/01/23 11:[address] [CT head/brain wo con] Stat Hospital Course (1) Angioedema: (2) Diabetes mellitus: (3) High blood pressure: (4) Sleep apnea: (5) Morbid obesity: Plan This is a 43-year-old male who has significant past medical history of T2DM, HTN, HLD, KELLIE on CPAP and periodic limb movement disorder who presents to ED secondary to right-sided tongue swelling prior to arrival. Patient was recently admitted for laparoscopic cholecystectomy; discharge 1 week prior to admission. Patient was given IM epinephrine, dexamethasone and diphenhydramine in the ED. Allergy/immunology was consulted over the phone; Dr. Rosales who recommended additional labs including a tryptase level, C4, C1 esterase inhibitor level, C1 esterase function level, as well as a C1q level. Patient was admitted to medical floor; monitored overnight. The swelling in his tongue gradually improved. He was placed on steroid and antihistamines. Antibiotic prescribed in prior hospitalization was discontinued. Surgery removed YADY drain placed during prior hospitalization At discharge, losartan and Jardiance were stopped. Patient was discharged on tapering dose of steroids, antihistamine and EpiPen. Patient to follow-up with PCP tomorrow. Patient needs to obtain referral for allergy/immunology. Labs pending a tryptase level, C4, C1 esterase inhibitor level, C1 esterase function level, as well as a C1q level.. Needs to follow-up with PCP Please note the above document was generated using voice recognition software. It may contain grammatical, syntax or spelling errors. Any formal questions or concerns about the content, text or information contained within the body of this dictation should be directly addressed to the provider for clarification Total Time Total Time Spent Total Time Spent (In Minutes): 34 Total Time Includes: Examination of the Patient, Discharge Planning, Medication Reconciliation, Communication With Other Providers and Other Discharge Plan Discharge Items Patient Disposition: Home - Self-Care Reason For Visit: ANGIOEDEMA Discharge Diagnosis: Angioedema Activity: Resume your previous activity Non-emergency contact: Primary Care Provider Call non-emergency contact if: you have any medication questions and your symptoms worsen Follow-up/Referrals: Ramon Amor DO [Physician] - (No need to follow up with us in the office this upcoming . you may call if you have any questions/concerns) Michi Moreno MD [Primary Care Provider] - (Date & Time 08/03/2023 11:00 AM Provider Michi Moreno MD Department Family [facility] ) Diet: Regular Addtl Attending Provider Instructions: You were admitted to the hospital due to angioedema. Review of your medication reveals that there could be a possible chance losartan and Jardiance can contribute to it even though it is a rare side effect. Dose medication has been stopped. You are prescribed hydrochlorothiazide for high blood pressure. You were prescribed following medications: 1) Prednisone 40 mg for 2 days, then 20 mg for 2 days and 10 mg for 2 days 2) Pepcid twice a day for 1 week 3) Cetirizine 10 mg twice a day for 1 week You are also prescribed EpiPen in case of emergencies.. Please follow-up with your primary care doctor tomorrow as scheduled. Please discuss about obtaining allergy and immunology referral. Surgery instructions; no heavy lifting more than 20-25 lbs over the next 2 weeks you may cover the incision where your drain was removed with dry gauze and tape, change daily and as needed until it has healed Pending Studies at Discharge: No Stand-Alone Forms: My [facility], Smoking Cessation Medications and DC Order Prescriptions: New hydrochlorothiazide 12.5 mg tablet 12.5 mg PO DAILY Qty: 30 0RF prednisone 20 mg tablet See Taper PO DAILY 3 Days Qty: 7 0RF Taper: Taper, Blank 40 mg DAILY for 2 Days 20 mg DAILY for 2 Days 10 mg DAILY for 2 Days famotidine [Pepcid] 20 mg tablet 20 mg PO BID 7 Days Qty: 14 0RF cetirizine 10 mg capsule 10 mg PO BID 7 Days Qty: 14 0RF epinephrine [EpiPen] 0.3 mg/0.3 mL auto-injector 0.3 mg IM Q4H PRN (Reason: anaphylaxis) Qty: 2 0RF Continued fenofibrate nanocrystallized 145 mg tablet 145 mg PO QAM Trulicity 0.75 mg/0.5 mL pen injector 0.75 mg SUBCUT WK Rx Instructions: WEDNESDAYS. PER PT "HAVEN'T TAKE FOR 2 1/2 WKS NOW, JUST DON'T FEEL WELL ENOUGH TO TAKE". oxycodone 5 mg tablet 5 - 10 mg PO [id number] PRN (Reason: pain, for initial therapy, max 6 tabs per day) Qty: 15 0RF tamsulosin 0.4 mg Capsule 0.4 mg PO HS Qty: 30 0RF [id number] carb-vit K 18 mg iron-400 mcg-500 mg Tablet 1 tab PO HS metoprolol tartrate 25 mg Tablet 25 mg PO BID Qty: 60 0RF Discontinued losartan-hydrochlorothiazide 100-25 mg tablet 1 tab PO DAILY Jardiance 25 mg tablet 25 mg PO QAM cefuroxime axetil 500 mg tablet 500 mg PO BID Qty: 14 0RF metronidazole 500 mg Tablet 500 mg PO TID 7 Days Qty: 21 0RF Discharge Orders: Discharge Order (Routine); Ordered 08/02/23 Ordered By: Tomasz Doran Admission Data Admit Date/Time: 08/01/23 11:12 Attending Provider: Tomasz Doran Admit Provider: Nora Merino Primary Care Provider: Michi Moreno Other Providers: Nora Merino
[2023-08-05 14:38] LABS: C1 Esterase Inhib Functional >100 % (>=68); C1 Esterase Inhibitor 36 mg/dL (21-39); Complement C1q 8.9 mg/dL (5.0-8.6)
== END 2023-08-02 16:20 | disposition home or self-care (01) ==
LOC: ED 08:01 → EDINP 08:01 → SUATTDRO 11:12 → 4W 13:15